=== PATIENT | female | born 1945 | race Caucasian/White ===

== ENCOUNTER 2022-11-24 16:08 | Outpatient (AMB) | payer BC, SELFPAY ==
--- NOTE | 2022-11-24 16:17 | MHC.OFFWIV ---
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 she states she gets winded when walking up stairs. she denies any chest pain, chest pressure. Pt states she has felt like this for some time now but her granddaughter has pushed her to be seen. 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 She does not have a primary care physician. Currently patient reports that she has no diagnosed medical condition and is on no medications. 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 In addition she is having a few stressors on going at home. Patient reports that in the last few weeks she has been tired and feels short of breath on exertion. Denies any chest pain, nausea or vomiting. Able to function and do activities of daily living. Physical Exam Vital Signs: Last Vital Signs Pulse 107 H 11/24/22 16:30 BP 120/80 11/24/22 16:30 Pulse Ox 98 11/24/22 16:30 Oxygen Delivery Method Room Air 11/24/22 16:30 Const General: cooperative and healthy appearing Nutritional Appearance: well nourished Orientation/consciousness: patient oriented x3 Limitations: no limitations HEENT Head: Yes normal to inspection Eyes General: appearance normal, both eyes and all related structures Neck Neck: Yes normal visual inspection Chest Chest palpation & inspection: normal palpation of entire chest wall Resp Effort & Inspection: normal respiratory effort Neuro General: patient oriented x3 Assessment & Plan Assessment & Plan (1) Fatigue: Code(s): R53.83 - Other fatigue Plan: Patient has never seen a primary care doc. I will start by ordering blood work. I have agreed to see her in my primary care practice in [place]. An appointment for the same will be given to her. Orders: Orders Basic Metabolic Panel Today R53.83 - Other fatigue Lipid Panel Today R53.83 - Other fatigue Liver Panel Today R53.83 - Other fatigue Thyroid Stimulating Hormone Today R53.83 - Other fatigue Complete Blood Count no Diff Today R53.83 - Other fatigue UA and rflx microscopic Today R53.83 - Other fatigue Coding Level of Care Code New Pt Level 3 (32142) Diagnoses Fatigue R53.83
[2022-11-24 16:30] VITALS: BP 120/80; PULSE 107; O2SAT 98
== END 2022-11-24 16:59 | disposition home or self-care (01) ==
PROVIDERS: Visit Provider Internal Medicine
DX: R53.83 Other fatigue (principal)
CPT/HCPCS: 99203

== ENCOUNTER 2022-11-25 14:21 | Outpatient (REF) | payer BC, SELFPAY ==
[2022-11-25 16:27] LABS: Appearance Urine Cloudy; Color Urine Yellow; Glucose Urine UA Negative (Negative); Leukocyte Esterase Urine Moderate (2+) (Negative); Nitrite Urine Positive (Negative); PH 5.5 (5.0-9.0); Specific Gravity - Urine 1.015 (1.005-1.025); UMIC TRIGGER UA YES; Urine Blood Negative (Negative); Urine Ketones Negative (Negative); Urine Protein Negative (Neg-Trace)
[2022-11-25 16:44] LABS: Bacteria Urine 4+ (None Seen); Calcium Oxalate Crystals Urine Present; RBC Urine 0-2 /HPF (0-2); WBC Urine >50 /HPF (0-5)
[2022-11-25 16:48] LABS: Alanine Aminotransferase 7 U/L (0-31); Albumin Level 3.8 g/dL (3.5-5.0); Alkaline Phosphatase 70 U/L (39-117); Anion Gap 13 (12-20); Aspartate Amino Transferase 12 U/L (5-31); Bilirubin Direct 0.1 mg/dL (0.0-0.5); Bilirubin Total 0.3 mg/dL (0.0-1.0); Blood Urea Nitrogen 12 mg/dL (9-16); Calcium 9.2 mg/dL (8.4-10.2); Carbon Dioxide 22 mmol/L (22-29); Chloride 108 mmol/L (96-108); Cholesterol 184 mg/dL (<200); Estimated Glomerular Filt Rate > 60; Glucose Random 143 mg/dL (60-115); HDL Cholesterol 44 mg/dL (>40); LDL Cholesterol Calculated 114 mg/dL (<100); Potassium 3.1 mmol/L (3.3-5.1); Sodium 140 mmol/L (135-145); Total Protein 6.2 g/dL (6.5-8.0); Triglycerides 130 mg/dL (<150)
[2022-11-25 16:55] LABS: Mean Corpuscular HGB Conc 26.2 g/dl (31.0-35.0); Mean Corpuscular Hemoglobin 16.7 pg (27.0-33.0); Mean Platelet Volume 9.3 fL (9.4-12.3); Platelet Count 532 X10*3/uL (160-400); Red Blood Count 3.17 X10*6/uL (4.20-5.50); Red Cell Distribution Width 19.5 % (11.0-16.0); White Blood Count 9.9 X10*3/uL (4.8-10.8)
[2022-11-25 17:43] LABS: Hematocrit 20.2 % (37.0-47.0); Hemoglobin 5.3 g/dl (12.0-16.0); Mean Corpuscular Volume 63.7 fL (80.0-98.0)
[2022-11-25 18:00] LABS: Thyroid Stimulating Hormone 1.57 uIU/mL (0.32-4.0)
== END 2022-11-25 14:22 | disposition home or self-care (01) ==
LOC: HO.HMGCLDS 14:21
PROVIDERS: PCP Internal Medicine; Visit Provider Internal Medicine
DX: R53.83 Other fatigue (principal)
CPT/HCPCS: 36415; 80048; 80061; 80076; 81001; 84443; 85027

== ENCOUNTER 2022-11-25 18:23 | Inpatient (IN) | payer MEDICARE, SELFPAY ==
--- NOTE | ~2022-11-25 | CT_ITS ---
EXAMINATION: CT ABDOMEN AND PELVIS WITH CONTRAST CLINICAL INFORMATION: Colonic mass COMPARISON: None available. TECHNIQUE: Multidetector volumetric images were obtained from the superior aspect of the liver through the pubic symphysis following administration 85 mL of Omnipaque 350 intravenous contrast. Sagittal and coronal reformatted images were obtained on the technologist's workstation. Oral contrast: No This CT examination was performed using dose optimization techniques as appropriate, variously including the following: *Automated exposure control *Adjustment of mA and/or kV according to patient size (this includes techniques or standardized protocols for targeted exams where dose is matched to indication/reason for exam; i.e. extremities or head) *Use of iterative reconstruction technique DLP: 566 mGy-cm FINDINGS: LUNG BASES: Small layering left-sided greater than right-sided pleural effusions. No pericardial fluid. LIVER, GALLBLADDER, AND BILIARY TREE: Area of decreased attenuation within segment 4A adjacent to the gallbladder fossa/lucinda hepatis. Although this could represent an area of focal fat infiltration, there appears to be possible subtle mass effect upon the adjacent hepatic vessels. Therefore mass lesion is not excluded. No other discrete lesion. No other foci of focal fatty infiltration is measurable. No biliary ductal dilatation. The gallbladder is unremarkable with no evidence of radiopaque gallstones, gallbladder wall thickening, or obvious pericholecystic inflammatory changes. PANCREAS: Unremarkable. SPLEEN: Unremarkable. ADRENAL GLANDS: No irregular adrenal lesion. Diffuse adenomatous changes left adrenal gland. KIDNEYS AND URETERS: The kidneys are normal in size, shape, and attenuation. No hydronephrosis, hydroureter, or calculi seen. No perinephric stranding. BLADDER: Unremarkable. GASTROINTESTINAL TRACT: Large circumferential infiltrating apple core type lesion without obstruction. Ascending colon. Ileocecal valve region cecal base grossly normal. Terminal ileum unremarkable. Appendix is not visualized. No small bowel serosal mesenteric lesion. Local regional pathologic lymphadenopathy within the right ileocolic mesentery measuring up to 7 mm short axis. Small axial type hiatus hernia. Small amount of nonspecific free fluid in the pelvis. ABDOMINAL WALL: No significant hernia is appreciated. LYMPH NODES: As above VASCULAR: Unremarkable. PELVIC VISCERA: Unremarkable. OSSEOUS STRUCTURES: Unremarkable. CT/CT abdomen pelvis w IV con IMPRESSION: 1. Large circumferential apple core type lesion within the ascending colon consistent with a primary colonic malignancy. Local regional lymphadenopathy. 2. Focal area of decreased attenuation within segment 4A of the liver as above. This could represent focal fatty infiltration but a mass lesion more likely based on the above features. Recommend MRI of the liver without and with contrast for further assessment. 3. Small layering pleural effusions. 4. Nonspecific free fluid in the pelvis. Fleischner guidelines were followed.
[2022-11-25 18:30] VITALS: BP 181/89; PULSE 103; RESP 20; TEMP 37.3; O2SAT 100; BMI 29.2
--- NOTE | 2022-11-25 18:30 | ED.GENADULT ---
HPI - General Adult General Chief complaint: Recheck/Abnormal Lab/Rx Stated complaint: sent by Dr / blood transfusion Time Seen by Provider: 11/25/22 21:02 Source: patient Mode of arrival: ambulatory Limitations: no limitations History of Present Illness HPI narrative: Patient comes to the emergency room accompanied by her granddaughter. Patient states that today she went to see her primary care physician because she has noticed that lately she feels short of breath when walking up the stairs. 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 Patient does not sleep well and is always tired. Patient states that she has not been seen by primary care physician in 50+ years, has no previous medical problems to her knowledge, never had colonoscopy. A primary care physician sent that work today, patient receive a phone call at home to let her know that her hemoglobin was very low and that she needed to come to the emergency room for further evaluation and treatment. Patient denies chest pain, no shortness of breath. Patient states that she has not noticed any black stool or blood. Patient has never had a colonoscopy Related Data Home Medications Medication Instructions Recorded Confirmed No Known Home Meds 11/24/22 Allergies Allergy/AdvReac Type Severity Reaction Status Date / Time No Known Allergies Allergy Verified 11/25/22 14:50 Review of Systems Review of Systems: Constitutional : No Weight loss, No Fever, No Chills, No Night Sweats, complaining of chronic Fatigue, No Malaise ENT/Mouth : No Hearing loss, No Ear Pain, No Nasal Congestion, No Sinus Pain, No Hoarseness, No sore throat, No Rhinorrhea, No Swallowing Difficulty Eyes: No Eye Pain, No Swelling, No Redness, No Foreign Body, No Discharge, No Vision Changes Cardiovascular : No Chest Pain, No SOB, complaining of Dyspnea on Exertion, No Orthopnea, No Edema, No Palpitations Respiratory : No Cough, No Sputum, No Wheezing, No Smoke Exposure, No Dyspnea Gastrointestinal : No Nausea, No Vomiting, No Diarrhea, No Constipation, No abdominal Pain, No Hematochezia, No Melena Genitourinary : no irregular bleeding, No Dysuria, No Urinary Frequency, No Hematuria, No Urinary Incontinence, No Urgency, No Flank Pain, No Urinary Flow Changes, No Hesitancy Musculoskeletal : No joint pain, No Myalgias, No Joint Swelling Skin : No Skin Lesions, No rash Neuro : No Weakness, No Numbness, No Paresthesias, No Loss of Consciousness, No Dizziness, No Headache Psych : No Anxiety/Panic, No Depression, No SI/HI/AH/VH, No Social Issues, Heme/Lymph: No Bruising, No Bleeding,No Lymphadenopathy Endocrine : No Polyuria, No Polydipsia, No Temperature Intolerance COUNTS INCLUDE 234 BEDS AT THE [facility] Social History Social History Advance Directives: No Advance Directives Information Provided: Yes Physical Exam ED Vital Signs: Vital Signs - 24 hr 11/25/22 18:30 11/25/22 21:00 Temperature 99.2 F 98.3 F Pulse Rate 103 H 93 Respiratory Rate 20 18 Blood Pressure 181/89 H 174/55 H Pulse Oximetry 100 100 Oxygen Delivery Method Room Air Room Air BMI result Body Mass Index 29.2 Const Other: Appearance: Alert. Oriented X3. No acute distress. Eyes: Pupils equal, round and reactive to light. ENT: Pharynx normal. Neck: Normal inspection. Neck supple. No lymph nodes noted. No crepitus CVS: Normal heart rate and rhythm. Pulses normal. Normal S1 and S2 Respiratory: No respiratory distress. Breath sounds normal. No Wheezing. No rales Abdomen: Soft and nontender. No rigidity. No distention. Skin: Skin warm and dry. pale skin color. Normal skin turgor. Extremities: No lower extremity edema. No Lacerations. No Rash Neuro: Oriented X 3. No motor deficit. No sensory deficit. Moving all extremities. No slurred speech. CN 2 through 12 grossly intact Psych: calm, cooperative, normal affect Course Course Course Narrative: This is a rapid medical exam: Additional HPI, ROS, PE not included below will be deferred to primary provider. Patient is a 77-year-old female presenting to the emergency department stating that she had labs drawn this afternoon and was called tonight, told to come to the ED for a transfusion. She reports being more easily fatigued than normal with everyday activities. Reports increased stress recently and had been attributing her symptoms to that. H&H 5.3/20.2 from today's labs. She denies any blood in stool or dark, tarry stools. UA positive for 2+ leukocytes, + nitrites. Plan: labs Medical Decision Making Medical Decision Making MDM Narrative: - I discussed the risks versus benefits of blood transfusion with the patient. Patient is agreeable to go ahead and get transfused. Patient signed the consent, which is in the paper chart - patient will be getting at least 3 units of blood, planning to admit the patient. - Stool occult blood test positive - talking further with the patient, since the patient takes a lot of Tums, seems that the patient has GERD, patient self medicates with Tums. It may be possible that patient may have an upper GI ulcer/bleed - discussed with the patient that she will likely need a colonoscopy and an endoscopy. 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 Differential Diagnosis Differential Diagnoses: The differential diagnosis associated with the presentation includes ( iron deficiency anemia, GI bleed, chronic anemia) Admission/Observation Consideration of admission/observation: Escalation of care including admission/observation considered Consult Healthcare Provider Management of the patient was discussed with: Hospitalist Lab Data MDM Lab Attestation statement: I reviewed the patient's lab results. 11/25/22 18:54 11/25/22 18:54 Labs: Lab Results 11/25/22 11/25/22 11/25/22 Range/Units 18:54 18:54 18:54 WBC 9.2 (4.8-10.8) X10*3/uL RBC 3.10 L (4.20-5.50) X10*6/uL Hgb 5.2 L* (12.0-16.0) g/dl Hct 19.4 L* (37.0-47.0) % MCV 62.6 L (80.0-98.0) fL MCH 16.8 L (27.0-33.0) pg MCHC 26.8 L (31.0-35.0) g/dl RDW 19.5 H (11.0-16.0) % Plt Count 468 H (160-400) X10*3/uL MPV 8.7 L (9.4-12.3) fL Immature Gran % (Auto) 0.9 H (0.0-0.4) % Neut % (Auto) 71.1 (45-73) % Lymph % (Auto) 18.2 L (20-40) % Taylor % (Auto) 7.4 (2-11) % Eos % (Auto) 1.6 (0-4) % Baso % (Auto) 0.8 (0-2) % Lymph # (Auto) 1.7 (1.2-4.9) X10*3/uL Taylor # (Auto) 0.7 (0.1-1.2) X10*3/uL Eos # (Auto) 0.2 (0.0-0.4) X10*3/uL Baso # (Auto) 0.1 (0.0-0.2) X10*3/uL Abs Immat Gran (auto) 0.08 H (0.00-0.03) X10*3/uL Absolute Neuts (auto) 6.5 (2.0-8.3) x10*3/uL Absolute Nucleated RBC 0.000 (0.0-0.012) X10*3/uL Nucleated RBC % (auto) 0.0 (0.0-0.2) /100WBC PT 12.1 (11.1-13.3) SEC INR 1.0 (0.9-1.1) APTT 27.7 (26.0-36.4) SEC Sodium 141 (135-145) mmol/L Potassium 3.4 (3.3-5.1) mmol/L Chloride 109 H (96-108) mmol/L Carbon Dioxide 24 (22-29) mmol/L Anion Gap 11 L (12-20) BUN 12 (9-16) mg/dL Creatinine 0.82 (0.5-1.4) mg/dL Estim Creat Clear Calc 56.8 Estimated GFR > 60 Random Glucose 119 H (60-115) mg/dL Calcium 9.8 D (8.4-10.2) mg/dL Total Bilirubin 0.3 (0.0-1.0) mg/dL AST 13 (5-31) U/L ALT 8 (0-31) U/L Alkaline Phosphatase 69 (39-117) U/L Total Protein 6.4 L (6.5-8.0) g/dL Albumin 3.9 (3.5-5.0) g/dL Blood Type Antibody Screen 11/25/22 Range/Units 20:10 WBC (4.8-10.8) X10*3/uL RBC (4.20-5.50) X10*6/uL Hgb (12.0-16.0) g/dl Hct (37.0-47.0) % MCV (80.0-98.0) fL MCH (27.0-33.0) pg MCHC (31.0-35.0) g/dl RDW (11.0-16.0) % Plt Count (160-400) X10*3/uL MPV (9.4-12.3) fL Immature Gran % (Auto) (0.0-0.4) % Neut % (Auto) (45-73) % Lymph % (Auto) (20-40) % Taylor % (Auto) (2-11) % Eos % (Auto) (0-4) % Baso % (Auto) (0-2) % Lymph # (Auto) (1.2-4.9) X10*3/uL Taylor # (Auto) (0.1-1.2) X10*3/uL Eos # (Auto) (0.0-0.4) X10*3/uL Baso # (Auto) (0.0-0.2) X10*3/uL Abs Immat Gran (auto) (0.00-0.03) X10*3/uL Absolute Neuts (auto) (2.0-8.3) x10*3/uL Absolute Nucleated RBC (0.0-0.012) X10*3/uL Nucleated RBC % (auto) (0.0-0.2) /100WBC PT (11.1-13.3) SEC INR (0.9-1.1) APTT (26.0-36.4) SEC Sodium (135-145) mmol/L Potassium (3.3-5.1) mmol/L Chloride (96-108) mmol/L Carbon Dioxide (22-29) mmol/L Anion Gap (12-20) BUN (9-16) mg/dL Creatinine (0.5-1.4) mg/dL Estim Creat Clear Calc Estimated GFR Random Glucose (60-115) mg/dL Calcium (8.4-10.2) mg/dL Total Bilirubin (0.0-1.0) mg/dL AST (5-31) U/L ALT (0-31) U/L Alkaline Phosphatase (39-117) U/L Total Protein (6.5-8.0) g/dL Albumin (3.5-5.0) g/dL Blood Type B Negative Antibody Screen NEGATIVE Independent Interpretation I performed an independent interpretation of an: EKG Independent Historian Clinical information obtained from an independent historian. History obtained from or confirmed by: Friend External Record Review External record reviewed: Office record ( First visit with PCP in 50+ years, hemoglobin is low, 5.4) Critical Care Time Critical Care Time Critical Care Time: Yes Total Critical Care Time: 60 Attestation: I have personally provided critical care time. Time includes review of lab data, radiology results, discussion with consultants, and monitoring for potential decompensation. Intervention performed as documented. Discharge Plan Discharge Clinical Impression: Anemia, Chronic fatigue Patient Disposition: Admitted As Inpatient Prescriptions: No Action No Known Home Meds
--- NOTE | 2022-11-25 18:33 | ECG_ITS ---
Test Reason : weakness Blood Pressure : / mmHG Vent. Rate : 093 BPM Atrial Rate : 093 BPM P-R Int : 148 ms QRS Dur : 072 ms QT Int : 358 ms P-R-T Axes : 039 -05 042 degrees QTc Int : 445 ms Normal sinus rhythm Nonspecific ST abnormality Abnormal ECG No previous ECGs available Referred By: Sammie Leavitt Electronically Signed By:DEIDRA BARTON
[2022-11-25 18:59] LABS: MANUAL DIFF FLAG NO
[2022-11-25 19:03] LABS: Basophils Absolute Auto 0.1 X10*3/uL (0.0-0.2); Basophils Percent Auto 0.8 % (0-2); Eosinophils Absolute Auto 0.2 X10*3/uL (0.0-0.4); Eosinophils Percent Auto 1.6 % (0-4); Imm Gran Abs Auto 0.08 X10*3/uL (0.00-0.03); Imm Gran Pct Auto 0.9 % (0.0-0.4); Lymphocytes Absolute Auto 1.7 X10*3/uL (1.2-4.9); Lymphocytes Percent Auto 18.2 % (20-40); Mean Corpuscular HGB Conc 26.8 g/dl (31.0-35.0); Mean Corpuscular Hemoglobin 16.8 pg (27.0-33.0); Mean Platelet Volume 8.7 fL (9.4-12.3); Monocytes Absolute Auto 0.7 X10*3/uL (0.1-1.2); Monocytes Percent Auto 7.4 % (2-11); Neutrophils Absolute Auto 6.5 x10*3/uL (2.0-8.3); Neutrophils Percent Auto 71.1 % (45-73); Platelet Count 468 X10*3/uL (160-400); Red Cell Distribution Width 19.5 % (11.0-16.0); White Blood Count 9.2 X10*3/uL (4.8-10.8)
[2022-11-25 19:06] LABS: Prothrombin Time 12.1 SEC (11.1-13.3)
[2022-11-25 19:08] LABS: Partial Thromboplastin Time 27.7 SEC (26.0-36.4)
[2022-11-25 19:14] LABS: Alanine Aminotransferase 8 U/L (0-31); Albumin Level 3.9 g/dL (3.5-5.0); Alkaline Phosphatase 69 U/L (39-117); Anion Gap 11 (12-20); Aspartate Amino Transferase 13 U/L (5-31); Bilirubin Total 0.3 mg/dL (0.0-1.0); Blood Urea Nitrogen 12 mg/dL (9-16); Calcium 9.8 mg/dL (8.4-10.2); Carbon Dioxide 24 mmol/L (22-29); Chloride 109 mmol/L (96-108); Creatinine Clr Calc Pharmacy 56.8; Estimated Glomerular Filt Rate > 60; Glucose Random 119 mg/dL (60-115); Potassium 3.4 mmol/L (3.3-5.1); Sodium 141 mmol/L (135-145); Total Protein 6.4 g/dL (6.5-8.0)
[2022-11-25 19:18] LABS: Mean Corpuscular Volume 62.6 fL (80.0-98.0)
[2022-11-25 19:23] LABS: Hematocrit 19.4 % (37.0-47.0); Hemoglobin 5.2 g/dl (12.0-16.0)
[2022-11-25 21:00] VITALS: BP 174/55; PULSE 93; RESP 18; TEMP 36.8; O2SAT 100
--- NOTE | 2022-11-25 21:10 | PC.NURSE ---
Pt ambulated independently from W/R to room. Pt A&Ox4, denies any pain, reports SOB with exertion and weakness.Pt reports diarrhea on and off x years. Denies CP/palpitations or dizziness, N/V. Pt placed on bedside monitor, IV line placed, provider at bedside.
[2022-11-25 21:20] LABS: OBS Int Ctl Valid YES; OBS1 POSITIVE (NEGATIVE)
[2022-11-25 21:40] LABS: Iron < 6 mcg/dL (30-160); Total Iron Binding Capacity < 338 mcg/dL (228-428); Unsaturated Iron Binding 332 ug/dL
--- NOTE | 2022-11-25 21:46 | P.HPHOSP_ITS ---
History of Present Illness Date of Service: 11/25/22 Chief Complaint: Dyspnea This is a 77-year-old female with no pertinent past medical history and not on prescription medications who has not seen a primary care physician in over 50 years presents to the emergency department for evaluation of abnormal labs and d yspnea. Patient states she has been having dyspnea with exertion that has been ongoing for the last 6 months. It has been progressive over the last 1 month and is worse with ambulation. Patient established care with a primary care physician on the day of presentation and got blood work done. Her hemoglobin was found to be low and she was sent to the ER. Patient does endorse intermittent black stools and loose stools over the last 6 months. No belly pain. Patient has never had a colonoscopy in the past. Denies chewing/smoking tobacco or excessive alcohol use. She denies fever, chills, chest discomfort, palpitations, abdominal pain, changes in urinary or bowel habits. In the emergency department, stool occult test was positive and patient's hemoglobin was found to be 5.2 Review of Systems Constitutional: Constitutional: Reports fatigue Cardiovascular: Cardiovascular: Reports dyspnea on exertion Respiratory: Respiratory: Reports dyspnea on exertion Gastrointestinal: Gastrointestinal: Reports melena and Reports diarrhea Genitourinary: Genitourinary: Reports no additional female genitourinary complaints Musculoskeletal: Musculoskeletal: Reports no additional musculoskeletal complaints Endocrine: Endocrine: Reports fatigue PMFSH Pertinent family history: No family history of early CAD Social History Advance Directives: No Advance Directives Information Provided: Yes Meds Allergies Allergy/AdvReac Type Severity Reaction Status Date / Time No Known Allergies Allergy Verified 11/25/22 14:50 Active Medications: Current Medications Sodium Chloride (Ns) 100 mls @ 100 mls/hr IV ONCE ONE Stop: 11/25/22 22:31 Sodium Chloride (Ns) 100 mls @ 100 mls/hr IV ONCE ONE Stop: 11/25/22 22:31 Sodium Chloride (Ns) 100 mls @ 100 mls/hr IV ONCE ONE Stop: 11/25/22 22:31 Home Medications Medication Instructions Recorded Confirmed Last Taken Type omeprazole 20 mg capsule,delayed 20 mg PO DAILY 11/25/22 11/25/22 Unknown History release Physical Exam Vital Signs and Narrative: Vital Signs: Last Vital Signs Temp 98.3 F 11/25/22 21:00 Pulse 93 11/25/22 21:00 Resp 18 11/25/22 21:00 BP 174/55 H 11/25/22 21:00 Pulse Ox 100 11/25/22 21:00 O2 Del Method Room Air 11/25/22 21:00 BMI result Body Mass Index 29.2 Elderly female lying in bed in no distress Neck supple, no JVD Regular rate and rhythm, S1-S2 heard Regular breath sounds bilaterally, no wheezing or crackles appreciated Abdomen soft nontender, no guarding, no rigidity Patient is awake, alert and oriented to self, place, time and person ; no focal motor deficit Psych: Normal mood No pedal edema Results Labs 11/25/22 18:54 11/25/22 18:54 Labs: Laboratory Results - last 24 hr 11/25/22 11/25/22 11/25/22 18:54 18:54 18:54 MCV 62.6 L MCH 16.8 L MCHC 26.8 L RDW 19.5 H Plt Count 468 H MPV 8.7 L Immature Gran % (Auto) 0.9 H Neut % (Auto) 71.1 Lymph % (Auto) 18.2 L [place] % (Auto) 7.4 Eos % (Auto) 1.6 Baso % (Auto) 0.8 Lymph # (Auto) 1.7 [place] # (Auto) 0.7 Eos # (Auto) 0.2 Baso # (Auto) 0.1 Abs Immat Gran (auto) 0.08 H Absolute Neuts (auto) 6.5 Absolute Nucleated RBC 0.000 Nucleated RBC % (auto) 0.0 PT 12.1 INR 1.0 APTT 27.7 Anion Gap 11 L Estim Creat Clear Calc 56.8 Estimated GFR > 60 Random Glucose 119 H Calcium 9.8 D Iron TIBC % Saturation Unsat Iron Binding Total Bilirubin 0.3 AST 13 ALT 8 Alkaline Phosphatase 69 Total Protein 6.4 L Albumin 3.9 Stool Occult Blood Blood Type Antibody Screen Crossmatch 11/25/22 11/25/22 11/25/22 20:10 21:14 21:19 MCV MCH MCHC RDW Plt Count MPV Immature Gran % (Auto) Neut % (Auto) Lymph % (Auto) [place] % (Auto) Eos % (Auto) Baso % (Auto) Lymph # (Auto) [place] # (Auto) Eos # (Auto) Baso # (Auto) Abs Immat Gran (auto) Absolute Neuts (auto) Absolute Nucleated RBC Nucleated RBC % (auto) PT INR APTT Anion Gap Estim Creat Clear Calc Estimated GFR Random Glucose Calcium Iron < 6 L TIBC < 338 % Saturation TNP Unsat Iron Binding 332 Total Bilirubin AST ALT Alkaline Phosphatase Total Protein Albumin Stool Occult Blood POSITIVE Blood Type B Negative Antibody Screen NEGATIVE Crossmatch See Detail Assessment and Plan (1) Anemia: Status: Acute Plan This is a 77-year-old female with no pertinent past medical history and not on prescription medications who has not seen a primary care physician in over 50 years presents to the emergency department for evaluation of abnormal labs and dyspnea. #. Symptomatic anemia, concern for GI bleed. Will admit patient with cardiac monitoring. Resuscitating with IV crystalloids. 3 unit PRBC ordered in the ER. Close monitor H&H. Consulted Gastroenterology, appreciate assistance. Stool occult positive in the ER. Administering IV Protonix and will keep patient NPO #. Iron deficiency in the setting of above #. Reactive thrombocytosis due to iron deficiency anemia DVT prophylaxis: Mechanical Full code Admit as inpatient and will require two night minimum hospital stay for close monitoring of hemodynamics. Specialist consult pending Time Spent With Patient Time: Total time managing care of this patient today ____ minutes. Quality Stroke Does the patient have a stroke diagnosis?: No VTE Prior VTE?: No VTE Risk Level:: Medical - moderate - high VTE Device Contraindication: N/A - Device Ordered VTE Drug Contraindication: Treatment Not Indicated
--- NOTE | 2022-11-25 21:51 | PHA.MEDREC ---
Pharmacy Consult ? Medication Reconciliation Pharmacy has completed the medication reconciliation. Patient reports no prescription. Patient reports mainly take omeprazole OTC. Kacey Wilson, JasonD
[2022-11-25 22:10] VITALS: BP 169/56; PULSE 102; RESP 20; TEMP 36.7
[2022-11-25 22:28] VITALS: BP 157/46; PULSE 87; RESP 18; TEMP 36.8
--- NOTE | 2022-11-25 22:31 | PC.NURSE ---
First unit of blood started per MAY/. Pt afebrile, denies any SOB, CP, palpitations, or itchiness. WCTM.
[2022-11-25] MEDS: Pantoprazole Sodium 40 MG/10 ML VIAL 80 MG IVPUSH (22:42)
[2022-11-26] VITALS (19 sets, daily range): BP systolic 111–174; BP diastolic 37–77; PULSE 69–98; RESP 16–22; TEMP 36.2–37.1; O2SAT 93–99; BMI 29.5
--- NOTE | 2022-11-26 01:22 | PC.NURSE ---
Pt ambulated to the bathroom with steady gait, denies pain, blood running per TAR. No adverse reactions reported, VSS. Pt has been reminded of the plan of care. Pt remains NPO.
--- NOTE | 2022-11-26 02:26 | PC.NURSE ---
Second unit of blood running, pt tolerating well. Pt denies any adverse reactions. wctm.
[2022-11-26 04:59] LABS: MANUAL DIFF FLAG NO
[2022-11-26 05:03] LABS: Basophils Absolute Auto 0.1 X10*3/uL (0.0-0.2); Eosinophils Absolute Auto 0.2 X10*3/uL (0.0-0.4); Eosinophils Percent Auto 1.7 % (0-4); Hematocrit 26.9 % (37.0-47.0); Hemoglobin 8.3 g/dl (12.0-16.0); Imm Gran Abs Auto 0.04 X10*3/uL (0.00-0.03); Imm Gran Pct Auto 0.4 % (0.0-0.4); Lymphocytes Absolute Auto 1.5 X10*3/uL (1.2-4.9); Lymphocytes Percent Auto 15.1 % (20-40); Mean Corpuscular HGB Conc 30.9 g/dl (31.0-35.0); Mean Corpuscular Hemoglobin 21.7 pg (27.0-33.0); Mean Corpuscular Volume 70.2 fL (80.0-98.0); Monocytes Absolute Auto 0.7 X10*3/uL (0.1-1.2); Monocytes Percent Auto 7.2 % (2-11); Neutrophils Absolute Auto 7.4 x10*3/uL (2.0-8.3); Neutrophils Percent Auto 74.6 % (45-73); Platelet Count 407 X10*3/uL (160-400); Red Blood Count 3.83 X10*6/uL (4.20-5.50); Red Cell Distribution Width 27.6 % (11.0-16.0)
[2022-11-26 05:23] LABS: Anion Gap 12 (12-20); Blood Urea Nitrogen 10 mg/dL (9-16); Calcium 9.4 mg/dL (8.4-10.2); Carbon Dioxide 23 mmol/L (22-29); Chloride 111 mmol/L (96-108); Creatinine Clr Calc Pharmacy 62.1; Estimated Glomerular Filt Rate > 60; Glucose Random 117 mg/dL (60-115); Potassium 3.3 mmol/L (3.3-5.1); Sodium 143 mmol/L (135-145)
--- NOTE | 2022-11-26 06:11 | PC.NURSE ---
Addendum entered by Heidi Marte 11/26/22 07:03: Pt denies any adverse reaction hesham. Original Note: Third unit of blood running per TAR
--- NOTE | 2022-11-26 06:32 | P.CNGI_ITS ---
History of Present Illness Data of Consult Service Date: 11/26/22 Requesting physician: Kobi Ramirez Primary Care Provider: Everardo Blair MD HPI Reason for consult: anemia 77-year-old female with no pertinent past medical history who I am seeing for anemia assessment She had labs checked by PCP due to exertional dyspnea and was foun dto have HGB 5.2 g/dl. She denies fever, chills, chest discomfort, palpitations, abdominal pain, changes in urinary or bowel habits. Seh has noted any rectal bleeding, melena, nose bleeds, hematuria. she has never had colonoscopy. Not taking nsaids or aspirin. She has had chronic diarrhea over the years, intermittent, no obvious triggers. she does have reflux symptoms at times and takes tums on a regular basis. Patient has received 3 units PRBC with appropriate increase in HGB. Not taking aspirin or blood thinners Review of Systems Review of Systems: Constitutional : No Weight loss, No Fever, No Chills ENT/Mouth : No sore throat, No Rhinorrhea Eyes: No Swelling, No Redness Cardiovascular : No Chest Pain, + SOB on exertion, No Edema Respiratory : No Cough, No Sputum, No Wheezing Gastrointestinal : see HPI Genitourinary : NO Dysuria, No Urinary Frequency, No Hematuria, No Urgency Musculoskeletal : No joint pain, No Myalgias, No Joint Swelling Skin : No Skin Lesions, No rash Neuro : No Weakness, No Numbness, No Dizziness, No Headache Psych : No Anxiety/Panic, No Depression Heme/Lymph: No Bruising, No Lymphadenopathy Endocrine : No Polyuria, No Polydipsia All other systems reviewed and are negative. [facility] Family History Pertinent family history: does not know her family history Social History Social History Household Members: Spouse Housing: House Do you presently have visiting nurse or other home services: Yes Alcohol intake: former Patient Tobacco Use Status: Never used Tobacco service: No Meds Allergies Allergy/AdvReac Type Severity Reaction Status Date / Time No Known Allergies Allergy Verified 11/25/22 14:50 Active Medications: Current Medications Acetaminophen (Acetaminophen 325 Mg Tablet) 650 mg PO Q6H PRN PRN Reason: Pain, Mild (Pain Scale 1-3) Acetaminophen (Acetaminophen Supp 650 Mg Supp.Rect) 650 mg [place] Q6H PRN PRN Reason: Pain, Mild (Pain Scale 1-3) Melatonin (Melatonin 3 Mg Tablet) 6 mg PO BEDTIME PRN PRN Reason: Insomnia Ondansetron HCl (Ondansetron Hcl 4 Mg/2 Ml Vial) 4 mg IVPUSH Q8H PRN PRN Reason: Nausea and Vomiting Sodium Chloride (0.9 % Sodium Chloride Flush 3 Ml Syringe) 3 ml IVFLUSH QSHIFT [facility] Last Admin: 11/26/22 00:47 Dose: Not Given Home Medications Medication Instructions Recorded Confirmed Last Taken Type omeprazole 20 mg capsule,delayed 20 mg PO DAILY 11/25/22 11/25/22 Unknown History release Physical Exam Vital Signs: Vital Signs: Last Vital Signs Temp 98.4 F 11/26/22 06:11 Pulse 82 11/26/22 06:11 Resp 20 11/26/22 06:11 BP 152/49 H 11/26/22 06:11 Pulse Ox 100 11/25/22 21:00 O2 Del Method Room Air 11/25/22 21:00 BMI result Body Mass Index 29.2 EXAM: GENERAL: The patient is well developed and nontoxic. VITAL SIGNS:see workflow HEENT: Nonicteric sclerae, PERRLA, EOMI. Oropharynx clear. Moist mucous membranes. Conjunctivae appear well perfused. No thyroid mass. CHEST: Chest wall is nontender. HEART: Regular rate and rhythm without murmurs. LUNGS: Clear to auscultation bilaterally. ABDOMEN: Soft, positive bowel sounds, nontender, no organomegaly.no flank tenderness SKIN: No rash, no excessive bruising, petechiae, or purpura. NEUROLOGIC: Cranial nerves II-XII intact without motor/sensory deficit. Psych: Appearance: grossly normal Results Labs 11/26/22 04:30 11/26/22 04:30 Labs: Short CBC 11/25/22 11/26/22 Range/Units 18:54 04:30 WBC 9.2 10.0 (4.8-10.8) X10*3/uL Hgb 5.2 L* 8.3 L D (12.0-16.0) g/dl Hct 19.4 L* 26.9 L D (37.0-47.0) % Plt Count 468 H 407 H (160-400) X10*3/uL BMP 11/25/22 11/26/22 18:54 04:30 Sodium 141 143 Potassium 3.4 3.3 Chloride 109 H 111 H Carbon Dioxide 24 23 BUN 12 10 Creatinine 0.82 0.75 Calcium 9.8 D 9.4 Liver Function 11/25/22 Range/Units 18:54 Total Bilirubin 0.3 (0.0-1.0) mg/dL AST 13 (5-31) U/L ALT 8 (0-31) U/L Alkaline Phosphatase 69 (39-117) U/L Albumin 3.9 (3.5-5.0) g/dL Assessment and Plan (1) Anemia: Status: Acute Plan 1/ Anemia seems chronic based on iron parameter,s no overt GIB but has long standing diarrhea ddx: PUD, celiac, neoplasia PLAN: 1/ EGD today if neg then colonoscopy tomorrow 2/ can keep on PPI for the moment 3/ iron replacement on d/c Time Spent With Patient Time: Total time managing care of this patient today ____ minutes. Procedures Date of Service Date of Service: 11/26/22
[2022-11-26] MEDS: cefTRIAXone sodium 1 GM in 0.9 % Sodium Chloride 50 ML IV (07:52)
--- NOTE | 2022-11-26 07:58 | PC.NURSE ---
pt a&ox3. respirations even and unlabored. lung sounds clear bilaterally. pt denies pain at this time. pt currently has blood products running per TAR, pt tolerating well. pt normal sinus on tele.
--- NOTE | 2022-11-26 09:03 | PC.NURSE ---
report given to Krissy in [facility]
--- NOTE | 2022-11-26 10:40 | HO.PM.IMPN ---
Subjective Subjective Date of Service: 11/26/22 Review of Systems follow-up anemia denies any shortness breath, chest pain, weakness Physical Exam Vital Signs: Vital Signs: Last Vital Signs Temp 98.0 F 11/26/22 10:09 Pulse 77 11/26/22 10:09 Resp 20 11/26/22 10:09 BP 171/74 H 11/26/22 10:09 Pulse Ox 94 11/26/22 10:00 O2 Del Method Room Air 11/26/22 10:00 BMI result Body Mass Index 29.2 Appearing in no acute distress lung sounds are clear to auscultation heart regular rate rhythm, clear S1, S2 positive bowel sounds, abdomen is soft, nontender neuro patient is alert x3, no focal deficits Objective Data Active Medications Acetaminophen (Acetaminophen 325 Mg Tablet) 650 mg PO Q6H PRN PRN Reason: Pain, Mild (Pain Scale 1-3) Acetaminophen (Acetaminophen Supp 650 Mg Supp.Rect) 650 mg [place] Q6H PRN PRN Reason: Pain, Mild (Pain Scale 1-3) Ceftriaxone Sodium 1 gm/ (Sodium Chloride) 50 mls @ 100 mls/hr IV Q24H [facility] Last Infusion: 11/26/22 09:26 Dose: 100 mls/hr Documented By: GARRICK Melatonin (Melatonin 3 Mg Tablet) 6 mg PO BEDTIME PRN PRN Reason: Insomnia Ondansetron HCl (Ondansetron Hcl 4 Mg/2 Ml Vial) 4 mg IVPUSH Q8H PRN PRN Reason: Nausea and Vomiting Sodium Chloride (0.9 % Sodium Chloride Flush 3 Ml Syringe) 3 ml IVFLUSH QSHIFT [facility] Last Admin: 11/26/22 07:42 Dose: Not Given Documented By: GRACE Non-Admin Reason: IV Running Labs 11/26/22 04:30 11/26/22 04:30 Labs: Laboratory Results - last 24 hr 11/25/22 11/25/22 11/25/22 18:54 18:54 18:54 MCV 62.6 L MCH 16.8 L MCHC 26.8 L RDW 19.5 H Plt Count 468 H MPV 8.7 L Immature Gran % (Auto) 0.9 H Neut % (Auto) 71.1 Lymph % (Auto) 18.2 L [place] % (Auto) 7.4 Eos % (Auto) 1.6 Baso % (Auto) 0.8 Lymph # (Auto) 1.7 [place] # (Auto) 0.7 Eos # (Auto) 0.2 Baso # (Auto) 0.1 Abs Immat Gran (auto) 0.08 H Absolute Neuts (auto) 6.5 Absolute Nucleated RBC 0.000 Nucleated RBC % (auto) 0.0 PT 12.1 INR 1.0 APTT 27.7 Anion Gap 11 L Estim Creat Clear Calc 56.8 Estimated GFR > 60 Random Glucose 119 H Calcium 9.8 D Iron TIBC % Saturation Unsat Iron Binding Total Bilirubin 0.3 AST 13 ALT 8 Alkaline Phosphatase 69 Total Protein 6.4 L Albumin 3.9 Stool Occult Blood Blood Type Antibody Screen Crossmatch 11/25/22 11/25/22 11/25/22 20:10 21:14 21:19 MCV MCH MCHC RDW Plt Count MPV Immature Gran % (Auto) Neut % (Auto) Lymph % (Auto) [place] % (Auto) Eos % (Auto) Baso % (Auto) Lymph # (Auto) [place] # (Auto) Eos # (Auto) Baso # (Auto) Abs Immat Gran (auto) Absolute Neuts (auto) Absolute Nucleated RBC Nucleated RBC % (auto) PT INR APTT Anion Gap Estim Creat Clear Calc Estimated GFR Random Glucose Calcium Iron < 6 L TIBC < 338 % Saturation TNP Unsat Iron Binding 332 Total Bilirubin AST ALT Alkaline Phosphatase Total Protein Albumin Stool Occult Blood POSITIVE Blood Type B Negative Antibody Screen NEGATIVE Crossmatch See Detail 11/26/22 11/26/22 04:30 04:30 MCV 70.2 L D MCH 21.7 L MCHC 30.9 L RDW 27.6 H Plt Count 407 H MPV 9.0 L Immature Gran % (Auto) 0.4 Neut % (Auto) 74.6 H Lymph % (Auto) 15.1 L [place] % (Auto) 7.2 Eos % (Auto) 1.7 Baso % (Auto) 1.0 Lymph # (Auto) 1.5 [place] # (Auto) 0.7 Eos # (Auto) 0.2 Baso # (Auto) 0.1 Abs Immat Gran (auto) 0.04 H Absolute Neuts (auto) 7.4 Absolute Nucleated RBC 0.000 Nucleated RBC % (auto) 0.0 PT INR APTT Anion Gap 12 Estim Creat Clear Calc 62.1 Estimated GFR > 60 Random Glucose 117 H Calcium 9.4 Iron TIBC % Saturation Unsat Iron Binding Total Bilirubin AST ALT Alkaline Phosphatase Total Protein Albumin Stool Occult Blood Blood Type Antibody Screen Crossmatch Assessment and Plan (1) Anemia: Status: Acute Plan This is a 77-year-old female with no pertinent past medical history and not on prescription medications who has not seen a primary care physician in over 50 years presents to the emergency department for evaluation of abnormal labs and dyspnea. Iron deficiency symptomatic anemia. Unspecified Also concern for acute blood loss anemia with occult positive stool Status post 3 units packed red blood cells with elevation and H&H Plan for EGD today Continue IV PPI for now Iron <6/TIBC <338, iron infusion UTI Continue Rocephin Follow final culture Reactive thrombocytosis due to iron deficiency anemia Follow CBC Elevated blood pressure readings No history of hypertension Monitor blood pressure closely and consider adding low-dose antihypertensive agent DVT prophylaxis:? Mechanical Attending Dr. Oates Full code continue hospitalization for treatment of acute iron deficiency anemia requiring IV iron, blood transfusion and diagnostic imaging studies Time Spent With Patient Time: Total time managing care of this patient today ____ minutes. Quality Stroke Does the patient have a stroke diagnosis?: No VTE Prior VTE?: No VTE Risk Level:: Medical - moderate - high VTE Device Contraindication: N/A - Device Ordered VTE Drug Contraindication: Treatment Not Indicated
--- NOTE | 2022-11-26 11:02 | MHC.CM.PN ---
Pt admitted with dyspnea. Pt lives at home with her , is independent/self-care. D/C plan is to return home self-care. Pts to transport. Declines to make a HCP at this time. PCP: Everardo Blair
[2022-11-26 11:08] LABS: Estimated Average Glucose 100 mg/dL; Hemoglobin A1c % 5.1 % (<6.0)
[2022-11-26] MEDS: Iron Sucrose Complex 200 MG in 0.9 % Sodium Chloride 100 ML 440 MG IV (11:13)
--- NOTE | 2022-11-26 12:36 | HO.ANESPROP2 ---
[facility] Active Problems Active Problems: All Active Problems (Updated 11/25/22 @ 21:47 by Rossana Medellin MD) Anemia (Acute) Chronic fatigue (Acute) Fatigue (Acute) Family History Family history of problems with anesthesia: No Surgical History History of Problems with Anesthesia: No Social History Social History Household Members: Spouse Housing: House Do you presently have visiting nurse or other home services: Yes Alcohol intake: former Patient Tobacco Use Status: Never used Tobacco Smoked in Last 30 Days: No Use of substances other than those prescribed or required for medical reasons: No Have you been hit, kicked, punched, or otherwise hurt by someone within the past year? If so, by whom?: No Do you feel safe in your current relationship?: Yes Is there a partner from a previous relationship who is making you feel unsafe now?: No Are you made to feel afraid or neglected: No R[employer] Healthcare Practices: confucianist Advance Directives: No Advance Directives Information Provided: Yes Do you have thoughts of harming others: None Do you have a plan to hurt others: No Plan Recently lost weight without trying: No Eating poorly because of decreased appetite: No Nutrition Risks: No Nutritional Risk Patient : No : No Poor oral hygiene: No service: No Meds Allergies Allergy/AdvReac Type Severity Reaction Status Date / Time No Known Allergies Allergy Verified 11/25/22 14:50 Active Medications: Current Medications Acetaminophen (Acetaminophen 325 Mg Tablet) 650 mg PO Q6H PRN PRN Reason: Pain, Mild (Pain Scale 1-3) Acetaminophen (Acetaminophen Supp 650 Mg Supp.Rect) 650 mg [place] Q6H PRN PRN Reason: Pain, Mild (Pain Scale 1-3) Ceftriaxone Sodium 1 gm/ (Sodium Chloride) 50 mls @ 100 mls/hr IV Q24H [facility] Last Infusion: 11/26/22 09:26 Dose: Infused Melatonin (Melatonin 3 Mg Tablet) 6 mg PO BEDTIME PRN PRN Reason: Insomnia Ondansetron HCl (Ondansetron Hcl 4 Mg/2 Ml Vial) 4 mg IVPUSH Q8H PRN PRN Reason: Nausea and Vomiting Sodium Chloride (0.9 % Sodium Chloride Flush 3 Ml Syringe) 3 ml IVFLUSH QSHIFT [facility] Last Admin: 08/30/23 07:42 Dose: Not Given Home Medications Medication Instructions Recorded Confirmed Last Taken Type omeprazole 20 mg capsule,delayed 20 mg PO DAILY 11/25/22 11/25/22 Unknown History release Exam Exam Date and Time: November 26, 2022 1236 Height,Weight and Vital Signs: Height 5 ft 4 in Weight 77.9 kg Last Vital Signs Temp 97.3 F 11/26/22 12:23 Pulse 81 11/26/22 12:23 Resp 18 11/26/22 12:23 BP 173/61 H 11/26/22 12:23 Pulse Ox 96 11/26/22 12:23 O2 Del Method Room Air 11/26/22 12:23 Pertinent Lab Results Pertinent Lab Results: Laboratory Tests 11/25/22 11/25/22 11/25/22 18:54 18:54 18:54 WBC 9.2 RBC 3.10 L Hgb 5.2 L* Hct 19.4 L* MCV 62.6 L MCH 16.8 L MCHC 26.8 L RDW 19.5 H Plt Count 468 H MPV 8.7 L Immature Gran % (Auto) 0.9 H Neut % (Auto) 71.1 Lymph % (Auto) 18.2 L [place] % (Auto) 7.4 Eos % (Auto) 1.6 Baso % (Auto) 0.8 Lymph # (Auto) 1.7 [place] # (Auto) 0.7 Eos # (Auto) 0.2 Baso # (Auto) 0.1 Abs Immat Gran (auto) 0.08 H Absolute Neuts (auto) 6.5 Absolute Nucleated RBC 0.000 Nucleated RBC % (auto) 0.0 PT 12.1 INR 1.0 APTT 27.7 Sodium 141 Potassium 3.4 Chloride 109 H Carbon Dioxide 24 Anion Gap 11 L BUN 12 Creatinine 0.82 Estim Creat Clear Calc 56.8 Estimated GFR > 60 Random Glucose 119 H Estimat Average Glucose Hemoglobin A1c % Calcium 9.8 D Iron TIBC % Saturation Unsat Iron Binding Total Bilirubin 0.3 AST 13 ALT 8 Alkaline Phosphatase 69 Total Protein 6.4 L Albumin 3.9 Stool Occult Blood Blood Type Antibody Screen Crossmatch 11/25/22 11/25/22 11/25/22 20:10 21:14 21:19 WBC RBC Hgb Hct MCV MCH MCHC RDW Plt Count MPV Immature Gran % (Auto) Neut % (Auto) Lymph % (Auto) [place] % (Auto) Eos % (Auto) Baso % (Auto) Lymph # (Auto) [place] # (Auto) Eos # (Auto) Baso # (Auto) Abs Immat Gran (auto) Absolute Neuts (auto) Absolute Nucleated RBC Nucleated RBC % (auto) PT INR APTT Sodium Potassium Chloride Carbon Dioxide Anion Gap BUN Creatinine Estim Creat Clear Calc Estimated GFR Random Glucose Estimat Average Glucose Hemoglobin A1c % Calcium Iron < 6 L TIBC < 338 % Saturation TNP Unsat Iron Binding 332 Total Bilirubin AST ALT Alkaline Phosphatase Total Protein Albumin Stool Occult Blood POSITIVE Blood Type B Negative Antibody Screen NEGATIVE Crossmatch See Detail 11/26/22 11/26/22 11/26/22 04:30 04:30 04:30 WBC 10.0 RBC 3.83 L D Hgb 8.3 L D Hct 26.9 L D MCV 70.2 L D MCH 21.7 L MCHC 30.9 L RDW 27.6 H Plt Count 407 H MPV 9.0 L Immature Gran % (Auto) 0.4 Neut % (Auto) 74.6 H Lymph % (Auto) 15.1 L [place] % (Auto) 7.2 Eos % (Auto) 1.7 Baso % (Auto) 1.0 Lymph # (Auto) 1.5 [place] # (Auto) 0.7 Eos # (Auto) 0.2 Baso # (Auto) 0.1 Abs Immat Gran (auto) 0.04 H Absolute Neuts (auto) 7.4 Absolute Nucleated RBC 0.000 Nucleated RBC % (auto) 0.0 PT INR APTT Sodium 143 Potassium 3.3 Chloride 111 H Carbon Dioxide 23 Anion Gap 12 BUN 10 Creatinine 0.75 Estim Creat Clear Calc 62.1 Estimated GFR > 60 Random Glucose 117 H Estimat Average Glucose 100 Hemoglobin A1c % 5.1 Calcium 9.4 Iron TIBC % Saturation Unsat Iron Binding Total Bilirubin AST ALT Alkaline Phosphatase Total Protein Albumin Stool Occult Blood Blood Type Antibody Screen Crossmatch Airway Mallampati Class: II (small mouth) TM Dist: >3cm Neck ROM: Full Heart: rrr Lungs: cta Assessment and Plan Assessment Anesthesia Assessment: Anesthesia Plan Discussed and Chart Reviewed Final Anesthetic Review Family History of Problems with Anesthesia: No History of Problems with Anesthesia: No NPO: Yes ASA Class: II Final Preanesthetic Review: No Changes in Pt Med Stat, Meds/Allgs Chart Reviewed and Consent Obtained/Reviewed Patient Risk: Intermediate Procedure Risk: Intermediate Anesthetic Plan Anesthetic Plan: MAC: Disposition: Standard PACU
--- NOTE | 2022-11-26 12:50 | PC.NURSE ---
pt with refuses another attempt of IV, attempt x 2 without success (very tough skin, understands took prep wants another appt with am appt being diabetic. refuses. 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
--- NOTE | 2022-11-26 12:55 | MHC.SHP ---
Pre-Procedural Eval Section A Date of Service: 11/26/22 The patient is an INPATIENT: Yes The History & Physical has been completed within 30 days and I have reviewed it.: Yes Section B Chief Complaint: Dyspnea Allergies: Allergies Allergy/AdvReac Type Severity Reaction Status Date / Time No Known Allergies Allergy Verified 11/25/22 14:50 Plan Diagnosis/Plan: Unchanged I have reviewed the history and physical and performed a pertinent physical examination on my patient. No changes have occurred unless specified. Time Spent With Patient Time: Total time managing care of this patient today ____ minutes.
--- NOTE | 2022-11-26 12:55 | W.PM.OPN ---
Operative Note Operative Note Date of Service: 11/26/22 Narrative: Procedure Description: EGD Indication: anemia Anesthesia: MAC FLEXIBLE TRANSORAL UPPER GASTROINTESTINAL ENDOSCOPY UPPER ENDOSCOPY Consent: Indications for the procedure and potential complications of bleeding, perforation, reaction to medications and missed diagnosis were discussed with the patient and informed consent was obtained. Instrument: Olympus GIF H 190 J mid size upper endoscope Monitoring: Vital signs and clinical assessment, continuous EKG monitoring, Pulse oximetry, Carbon Dioxide monitoring and blood pressure monitoring were done throughout the procedure. Procedure: The patient was placed in the left lateral decubitis position and pre-procedure medications were administered and a bite block was placed. The endoscope was inserted into the mouth and advanced under direct vision to the third part of duodenum. A careful inspection was made as the upper endoscope was withdrawn including a retroflexed examination of the proximal stomach; Findings and interventions are described below. Findings: Larynx:normal Esophagus: GE junction at 33 cm, diaphragm hiatus at 37 cm, consistent with 4 cm fixed hiatal hernia, erosion and superficial ulceration noted at the GEJ, not bleeding, bx taken, schatzki ring also noted Stomach: Patchy gastric erythema. Biopsies were obtained. Grade 2 flap valve on retroflexed examination of the cardia. Duodenum: Normal bulb and descending duodenum, bx taken--there was a small non bleeding AVM that was ablated using APC Intervention: Biopsies as noted above, APC to AVM Impression/Findings: AVM gastritis hiatal hernia schatzki ring erosive esophagitis PLAN: GERd precautions PPI e.g pantoprazole 40 mg bid for 3 months then titrate down if she agrees then colonoscopy tomottow to r/o other path as nothing was actively bleeding
[2022-11-26] MEDS: PEG 3350/Na Sulf,Bicarb,Cl/KCL 4,000 ML SOLN.RECON 4000 ML PO (18:28)
[2022-11-26] MEDS: 0.9 % Sodium Chloride Flush 3 ML SYRINGE IVFLUSH (18:28)
[2022-11-27] VITALS (10 sets, daily range): BP systolic 138–178; BP diastolic 60–95; PULSE 66–90; RESP 12–23; TEMP 36.1–36.8; O2SAT 94–98
[2022-11-27 06:42] LABS: MANUAL DIFF FLAG NO
[2022-11-27 06:47] LABS: Basophils Absolute Auto 0.1 X10*3/uL (0.0-0.2); Basophils Percent Auto 0.8 % (0-2); Eosinophils Absolute Auto 0.3 X10*3/uL (0.0-0.4); Eosinophils Percent Auto 2.7 % (0-4); Hematocrit 30.9 % (37.0-47.0); Hemoglobin 9.8 g/dl (12.0-16.0); Imm Gran Abs Auto 0.06 X10*3/uL (0.00-0.03); Imm Gran Pct Auto 0.6 % (0.0-0.4); Lymphocytes Absolute Auto 1.7 X10*3/uL (1.2-4.9); Lymphocytes Percent Auto 17.5 % (20-40); Mean Corpuscular HGB Conc 31.7 g/dl (31.0-35.0); Mean Corpuscular Hemoglobin 23.1 pg (27.0-33.0); Mean Corpuscular Volume 72.9 fL (80.0-98.0); Mean Platelet Volume 8.9 fL (9.4-12.3); Monocytes Absolute Auto 0.8 X10*3/uL (0.1-1.2); Monocytes Percent Auto 8.4 % (2-11); Neutrophils Absolute Auto 6.9 x10*3/uL (2.0-8.3); Platelet Count 318 X10*3/uL (160-400); Red Blood Count 4.24 X10*6/uL (4.20-5.50); Red Cell Distribution Width 26.1 % (11.0-16.0); White Blood Count 9.8 X10*3/uL (4.8-10.8)
[2022-11-27 06:59] LABS: Anion Gap 12 (12-20); Blood Urea Nitrogen 9 mg/dL (9-16); Calcium 8.9 mg/dL (8.4-10.2); Carbon Dioxide 23 mmol/L (22-29); Chloride 111 mmol/L (96-108); Creatinine Clr Calc Pharmacy 66.9; Estimated Glomerular Filt Rate > 60; Glucose Random 91 mg/dL (60-115); Potassium 2.8 mmol/L (3.3-5.1); Sodium 143 mmol/L (135-145)
[2022-11-27] MEDS: cefTRIAXone sodium 1 GM in 0.9 % Sodium Chloride 50 ML IV (08:17)
[2022-11-27 08:34] LABS: Magnesium 1.9 mg/dL (1.6-2.6)
[2022-11-27] MEDS: Potassium Chloride/H20 10 MEQ/100 ML PIGGYBACK 100 MEQ IV ×4 (08:47→12:55)
--- NOTE | 2022-11-27 12:58 | HO.PM.IMPN ---
Subjective Subjective Date of Service: 11/27/22 Interval History: seen and examined this morning follow up for anemia no overnight events no bleeding noted Review of Systems Review of Systems: Yes all other systems are reviewed and are negative Constitutional Constitutional: Denies chills and Denies fever(s) ENT Ears, Nose, Mouth, and Throat: Denies dizziness Cardiovascular Cardiovascular: Denies chest pain and Denies dyspnea Respiratory Respiratory: Denies dyspnea Neurologic Neurologic: Denies dizziness Physical Exam Vital Signs: Vital Signs: Last Vital Signs Temp 96.9 F 11/27/22 11:33 Pulse 77 11/27/22 11:33 Resp 20 11/27/22 11:33 BP 158/68 H 11/27/22 11:33 Pulse Ox 96 11/27/22 11:33 O2 Del Method Room Air 11/27/22 11:33 O2 Flow Rate 6 11/26/22 13:34 BMI result Body Mass Index 29.5 Const: General: cooperative, comfortable, alert and awake Nutritional Appearance: average body habitus Orientation/consciousness: patient oriented x3 Resp: Effort & Inspection: normal respiratory effort, able to speak in complete sentences, no respiratory distress and no use of accessory muscles Cardio: Rate: regular rate Heart sounds: S1 normal heart sound present and S2 normal heart sound present GI: Inspection: No distended Palpation (GI): Soft to palpation Neuro: Other: grossly nonfocal General: patient oriented x3 Objective Data Active Medications Acetaminophen (Acetaminophen 325 Mg Tablet) 650 mg PO Q6H PRN PRN Reason: Pain, Mild (Pain Scale 1-3) Acetaminophen (Acetaminophen Supp 650 Mg Supp.Rect) 650 mg [place] Q6H PRN PRN Reason: Pain, Mild (Pain Scale 1-3) Ceftriaxone Sodium 1 gm/ (Sodium Chloride) 50 mls @ 100 mls/hr IV Q24H [facility] Last Infusion: 11/27/22 08:48 Dose: 0 mls/hr Documented By: AMEYA Melatonin (Melatonin 3 Mg Tablet) 6 mg PO BEDTIME PRN PRN Reason: Insomnia Ondansetron HCl (Ondansetron Hcl 4 Mg/2 Ml Vial) 4 mg IVPUSH Q8H PRN PRN Reason: Nausea and Vomiting Ondansetron HCl (Ondansetron Hcl 4 Mg/2 Ml Vial) 4 mg IVPUSH Q8H PRN PRN Reason: nausea Sodium Chloride (0.9 % Sodium Chloride Flush 3 Ml Syringe) 3 ml IVFLUSH QSHIFT [facility] Last Admin: 11/27/22 08:47 Dose: Not Given Documented By: AMEYA Non-Admin Reason: IV Running Labs 11/27/22 05:50 11/27/22 05:50 Labs: Laboratory Results - last 24 hr 11/27/22 11/27/22 05:50 05:50 MCV 72.9 L MCH 23.1 L MCHC 31.7 RDW 26.1 H Plt Count 318 MPV 8.9 L Immature Gran % (Auto) 0.6 H Neut % (Auto) 70.0 Lymph % (Auto) 17.5 L [place] % (Auto) 8.4 Eos % (Auto) 2.7 Baso % (Auto) 0.8 Lymph # (Auto) 1.7 [place] # (Auto) 0.8 Eos # (Auto) 0.3 Baso # (Auto) 0.1 Abs Immat Gran (auto) 0.06 H Absolute Neuts (auto) 6.9 Absolute Nucleated RBC 0.000 Nucleated RBC % (auto) 0.0 Anion Gap 12 Estim Creat Clear Calc 66.9 Estimated GFR > 60 Random Glucose 91 Calcium 8.9 Magnesium 1.9 Assessment and Plan (1) Anemia: Status: Acute Plan This is a 77-year-old female with no pertinent past medical history and not on prescription medications who has not seen a primary care physician in over 50 years presents to the emergency department for evaluation of abnormal labs and dyspnea. symptomatic Iron deficiency anemia baseline H/H unavailable Also concern for acute blood loss anemia with occult positive stool Status post 3 units packed red blood cells with elevation and H&H s/p EGD 11/26 AVM, gastritis, schatzki ring, erosive esophagitis - no active bleeding - plan for pantoprazole 40 bid x 3 months then titrate down plan for colonoscopy today Continue IV PPI for now Iron <6/TIBC <338, s/p IV iron infusion UTI Continue Rocephin no urine culture obtained, unable to add on plan to complete course of po ceftin upon discharge Reactive thrombocytosis due to iron deficiency anemia improved hypokalemia likely related to prep/GI loss replace and follow Elevated blood pressure readings No history of hypertension Monitor blood pressure closely and consider adding low-dose antihypertensive agent DVT prophylaxis:? Mechanical Attending Dr. Oates Full code continue hospitalization for colonoscopy/blood loss anemia Time Spent With Patient Time: Total time managing care of this patient today ____ minutes. Quality Stroke Does the patient have a stroke diagnosis?: No VTE Prior VTE?: No VTE Risk Level:: Medical - moderate - high VTE Device Contraindication: N/A - Device Ordered VTE Drug Contraindication: Treatment Not Indicated
--- NOTE | 2022-11-27 13:51 | P.CONAN_ITS ---
HPI - Anesthesia Eval Consult details Narrative: Colonoscopy PMFSH Active Problems Active Problems: All Active Problems (Updated 11/25/22 @ 21:47 by Rossana Medellin MD) Anemia (Acute) Chronic fatigue (Acute) Fatigue (Acute) Family History Family history of problems with anesthesia: No Surgical History History of Problems with Anesthesia: No Social History Social History Household Members: Spouse Housing: House Do you presently have visiting nurse or other home services: Yes Alcohol intake: former Patient Tobacco Use Status: Never used Tobacco Smoked in Last 30 Days: No Use of substances other than those prescribed or required for medical reasons: No Currently Displaying Signs/Symptoms of Drug Intoxication Withdrawal: No Have you been hit, kicked, punched, or otherwise hurt by someone within the past year? If so, by whom?: No Do you feel safe in your current relationship?: Yes Is there a partner from a previous relationship who is making you feel unsafe now?: No Are you made to feel afraid or neglected: No Judaism Healthcare Practices: evangelical Advance Directives: No Advance Directives Information Provided: Yes Do you have thoughts of harming others: None Do you have a plan to hurt others: No Plan Recently lost weight without trying: No Eating poorly because of decreased appetite: No Nutrition Risks: No Nutritional Risk Patient : No : No Poor oral hygiene: No service: No Meds Allergies Allergy/AdvReac Type Severity Reaction Status Date / Time No Known Allergies Allergy Verified 11/25/22 14:50 Active Medications: Current Medications Acetaminophen (Acetaminophen 325 Mg Tablet) 650 mg PO Q6H PRN PRN Reason: Pain, Mild (Pain Scale 1-3) Acetaminophen (Acetaminophen Supp 650 Mg Supp.Rect) 650 mg [place] Q6H PRN PRN Reason: Pain, Mild (Pain Scale 1-3) Ceftriaxone Sodium 1 gm/ (Sodium Chloride) 50 mls @ 100 mls/hr IV Q24H CM Last Infusion: 11/27/22 08:48 Dose: Infused Melatonin (Melatonin 3 Mg Tablet) 6 mg PO BEDTIME PRN PRN Reason: Insomnia Ondansetron HCl (Ondansetron Hcl 4 Mg/2 Ml Vial) 4 mg IVPUSH Q8H PRN PRN Reason: Nausea and Vomiting Ondansetron HCl (Ondansetron Hcl 4 Mg/2 Ml Vial) 4 mg IVPUSH Q8H PRN PRN Reason: nausea Sodium Chloride (0.9 % Sodium Chloride Flush 3 Ml Syringe) 3 ml IVFLUSH QSHIFT [facility] Last Admin: 11/27/22 08:47 Dose: Not Given Home Medications Medication Instructions Recorded Confirmed Last Taken Type omeprazole 20 mg capsule,delayed 20 mg PO DAILY 11/25/22 11/25/22 Unknown History release Exam Exam Date and Time: November 27, 2022 1351 Height,Weight and Vital Signs: Height 5 ft 4 in Weight 77.9 kg Last Vital Signs Temp 96.9 F 11/27/22 11:33 Pulse 77 11/27/22 11:33 Resp 20 11/27/22 11:33 BP 158/68 H 11/27/22 11:33 Pulse Ox 96 11/27/22 11:33 O2 Del Method Room Air 11/27/22 11:33 O2 Flow Rate 6 11/26/22 13:34 Pertinent Lab Results Pertinent Lab Results: Laboratory Tests 11/25/22 11/25/22 11/25/22 18:54 18:54 18:54 WBC 9.2 RBC 3.10 L Hgb 5.2 L* Hct 19.4 L* MCV 62.6 L MCH 16.8 L MCHC 26.8 L RDW 19.5 H Plt Count 468 H MPV 8.7 L Immature Gran % (Auto) 0.9 H Neut % (Auto) 71.1 Lymph % (Auto) 18.2 L [place] % (Auto) 7.4 Eos % (Auto) 1.6 Baso % (Auto) 0.8 Lymph # (Auto) 1.7 [place] # (Auto) 0.7 Eos # (Auto) 0.2 Baso # (Auto) 0.1 Abs Immat Gran (auto) 0.08 H Absolute Neuts (auto) 6.5 Absolute Nucleated RBC 0.000 Nucleated RBC % (auto) 0.0 PT 12.1 INR 1.0 APTT 27.7 Sodium 141 Potassium 3.4 Chloride 109 H Carbon Dioxide 24 Anion Gap 11 L BUN 12 Creatinine 0.82 Estim Creat Clear Calc 56.8 Estimated GFR > 60 Random Glucose 119 H Estimat Average Glucose Hemoglobin A1c % Calcium 9.8 D Magnesium Iron TIBC % Saturation Unsat Iron Binding Total Bilirubin 0.3 AST 13 ALT 8 Alkaline Phosphatase 69 Total Protein 6.4 L Albumin 3.9 Stool Occult Blood Blood Type Antibody Screen Crossmatch 11/25/22 11/25/22 11/25/22 20:10 21:14 21:19 WBC RBC Hgb Hct MCV MCH MCHC RDW Plt Count MPV Immature Gran % (Auto) Neut % (Auto) Lymph % (Auto) [place] % (Auto) Eos % (Auto) Baso % (Auto) Lymph # (Auto) [place] # (Auto) Eos # (Auto) Baso # (Auto) Abs Immat Gran (auto) Absolute Neuts (auto) Absolute Nucleated RBC Nucleated RBC % (auto) PT INR APTT Sodium Potassium Chloride Carbon Dioxide Anion Gap BUN Creatinine Estim Creat Clear Calc Estimated GFR Random Glucose Estimat Average Glucose Hemoglobin A1c % Calcium Magnesium Iron < 6 L TIBC < 338 % Saturation TNP Unsat Iron Binding 332 Total Bilirubin AST ALT Alkaline Phosphatase Total Protein Albumin Stool Occult Blood POSITIVE Blood Type B Negative Antibody Screen NEGATIVE Crossmatch See Detail 11/26/22 11/26/22 11/26/22 04:30 04:30 04:30 WBC 10.0 RBC 3.83 L D Hgb 8.3 L D Hct 26.9 L D MCV 70.2 L D MCH 21.7 L MCHC 30.9 L RDW 27.6 H Plt Count 407 H MPV 9.0 L Immature Gran % (Auto) 0.4 Neut % (Auto) 74.6 H Lymph % (Auto) 15.1 L [place] % (Auto) 7.2 Eos % (Auto) 1.7 Baso % (Auto) 1.0 Lymph # (Auto) 1.5 [place] # (Auto) 0.7 Eos # (Auto) 0.2 Baso # (Auto) 0.1 Abs Immat Gran (auto) 0.04 H Absolute Neuts (auto) 7.4 Absolute Nucleated RBC 0.000 Nucleated RBC % (auto) 0.0 PT INR APTT Sodium 143 Potassium 3.3 Chloride 111 H Carbon Dioxide 23 Anion Gap 12 BUN 10 Creatinine 0.75 Estim Creat Clear Calc 62.1 Estimated GFR > 60 Random Glucose 117 H Estimat Average Glucose 100 Hemoglobin A1c % 5.1 Calcium 9.4 Magnesium Iron TIBC % Saturation Unsat Iron Binding Total Bilirubin AST ALT Alkaline Phosphatase Total Protein Albumin Stool Occult Blood Blood Type Antibody Screen Crossmatch 11/27/22 11/27/22 05:50 05:50 WBC 9.8 RBC 4.24 Hgb 9.8 L Hct 30.9 L MCV 72.9 L MCH 23.1 L MCHC 31.7 RDW 26.1 H Plt Count 318 MPV 8.9 L Immature Gran % (Auto) 0.6 H Neut % (Auto) 70.0 Lymph % (Auto) 17.5 L [place] % (Auto) 8.4 Eos % (Auto) 2.7 Baso % (Auto) 0.8 Lymph # (Auto) 1.7 [place] # (Auto) 0.8 Eos # (Auto) 0.3 Baso # (Auto) 0.1 Abs Immat Gran (auto) 0.06 H Absolute Neuts (auto) 6.9 Absolute Nucleated RBC 0.000 Nucleated RBC % (auto) 0.0 PT INR APTT Sodium 143 Potassium 2.8 L Chloride 111 H Carbon Dioxide 23 Anion Gap 12 BUN 9 Creatinine 0.70 Estim Creat Clear Calc 66.9 Estimated GFR > 60 Random Glucose 91 Estimat Average Glucose Hemoglobin A1c % Calcium 8.9 Magnesium 1.9 Iron TIBC % Saturation Unsat Iron Binding Total Bilirubin AST ALT Alkaline Phosphatase Total Protein Albumin Stool Occult Blood Blood Type Antibody Screen Crossmatch Airway Mallampati Class: II TM Dist: >3cm Neck ROM: Limited Heart: rrr Lungs: cta Assessment and Plan Assessment Anesthesia Assessment: Anesthesia Plan Discussed and Chart Reviewed Final Anesthetic Review Family History of Problems with Anesthesia: No History of Problems with Anesthesia: No NPO: Yes ASA Class: II Final Preanesthetic Review: No Changes in Pt Med Stat, Meds/Allgs Chart Reviewed, Consent Obtained/Reviewed and Anes Risks/Benef Reviewed Patient Risk: Intermediate Procedure Risk: Low Anesthetic Plan Anesthetic Plan: MAC: and Agree w/ Assess. and Plan Disposition: Standard PACU
--- NOTE | 2022-11-27 14:39 | MHC.SHP ---
Pre-Procedural Eval Section A Date of Service: 11/27/22 The patient is an INPATIENT: Yes The History & Physical has been completed within 30 days and I have reviewed it.: Yes Section B Chief Complaint: Dyspnea Allergies: Allergies Allergy/AdvReac Type Severity Reaction Status Date / Time No Known Allergies Allergy Verified 11/25/22 14:50 Plan Diagnosis/Plan: Unchanged I have reviewed the history and physical and performed a pertinent physical examination on my patient. No changes have occurred unless specified. Time Spent With Patient Time: Total time managing care of this patient today ____ minutes.
--- NOTE | 2022-11-27 14:39 | W.PM.OPN ---
Operative Note Operative Note Date of Service: 11/27/22 Narrative: Operative Information Procedure Description: Colonoscopy Indication: anemia Anesthesia: MAC COLONOSCOPY Instrument: Olympus variable stiffness pediatric scope 190L Colonoscopy Monitoring: Vital signs and clinical assessment, continuous EKG monitoring, Pulse oximetry, Carbon Dioxide monitoring and blood pressure monitoring were done throughout the procedure. Colon withdrawal time was 12 minutes. Procedure: The patient was placed in the left lateral decubitis position and pre-procedure medications were administered. After a digital rectal examination of the ano-rectum, the video colonoscope was inserted into the rectum and advanced through the colon to the cecum/TI. The colonoscope was slowly withdrawn in a retrograde panoramic fashion and the colon mucosa was carefully examined including a retroflexed view of the rectum. Findings and interventions are described below. Procedure Difficulty: easy Findings: Terminal Ileum-normal Cecum:normal Ascending Colon: In mid point of AC to distal AC and just close to hepatic lfexure an irregular mass lesion with friable tissue was noted, bx were taken, and it felt hard to touch. The scope passed the mass easily. The distal and proximal points of the lesion were marked with Vandana Ink Transverse Colon -normal Descending Colon:normal Sigmoid Colon: normal Rectum: Retroflexion with small internal hemorrhoids, grade I Anorectum - normal Colon preparation: [place] Bowel Preparation Scale Right colon; 2 Transverse colon: 3 Left colon; 3 (0 = Unprepared colon segment with mucosa not seen due to solid stool that cannot be cleared. 1 = Portion of mucosa of the colon segment seen, but other areas of the colon segment not well seen due to staining, residual stool and/or opaque liquid. 2 = Minor amount of residual staining, small fragments of stool and/or opaque liquid, but mucosa of colon segment seen well. 3 = Entire mucosa of colon segment seen well with no residual staining, small fragments of stool or opaque liquid) Impression and Post Procedure Diagnosis: colonic mass internal hemorrhoids Plan: Low roughage diet, avoid hard meats Avoid straining at stool, epsom salts and sitz bath, anusol supps or cream surgical referral and CT imaging with contrast, CEA level Above findings were reviewed with the patient and relevant handouts were provided if indicated.
[2022-11-27] MEDS: 0.9 % Sodium Chloride Flush 3 ML SYRINGE IVFLUSH ×2 (17:09→23:31)
[2022-11-27] MEDS: iohexoL 350 MG/ML 100 ML INFUS..BTL IV (17:26)
[2022-11-27 19:46] LABS: Potassium 3.4 mmol/L (3.3-5.1)
[2022-11-28] VITALS: BP 160/50; PULSE 89; TEMP 36.9; O2SAT 97
[2022-11-28 04:00] VITALS: BP 160/58; PULSE 81; RESP 20; TEMP 37.1; O2SAT 96
[2022-11-28 07:15] VITALS: BP 156/67; PULSE 75; RESP 20; TEMP 36.7; O2SAT 94
[2022-11-28] MEDS: 0.9 % Sodium Chloride Flush 3 ML SYRINGE IVFLUSH (07:51)
[2022-11-28] MEDS: cefTRIAXone sodium 1 GM in 0.9 % Sodium Chloride 50 ML IV (07:57)
--- NOTE | 2022-11-28 10:10 | P.CONGS_ITS ---
History of Present Illness Consult details Consult date: 11/28/22 Narrative: Surgical consultation slightly diagnosed ascending colon neoplasm. Patient presented with profound dyspnea on exertion feeling weak. Workup demonstrated significant anemia with H&H of 5.2 and 19.4. Patient was admitted, underwent general restorative measures, and had colonoscopy on 11/27 demonstrated ascendi ng colonic tumor. CTA is also markedly elevated greater than 200, and CT scan performed last night demonstrated the ascending colon cancer was significant local regional adenopathy. Also question of a liver metastasis. Patient has not seen a physician in over 50 years. She had no prior antecedent GI symptoms of pain, bleeding, melena, or other abdominal complaints. [facility] Social History Social History Household Members: Spouse Housing: House Do you presently have visiting nurse or other home services: Yes Alcohol intake: former Patient Tobacco Use Status: Never used Tobacco Smoked in Last 30 Days: No Use of substances other than those prescribed or required for medical reasons: No Currently Displaying Signs/Symptoms of Drug Intoxication Withdrawal: No Have you been hit, kicked, punched, or otherwise hurt by someone within the past year? If so, by whom?: No Do you feel safe in your current relationship?: Yes Is there a partner from a previous relationship who is making you feel unsafe now?: No Are you made to feel afraid or neglected: No Zoroastrian Healthcare Practices: latter-day Advance Directives: No Advance Directives Information Provided: Yes Do you have thoughts of harming others: None Do you have a plan to hurt others: No Plan Recently lost weight without trying: No Eating poorly because of decreased appetite: No Nutrition Risks: No Nutritional Risk Patient : No : No Poor oral hygiene: No service: No Meds Allergies Allergy/AdvReac Type Severity Reaction Status Date / Time No Known Allergies Allergy Verified 11/25/22 14:50 Active Medications: Current Medications Acetaminophen (Acetaminophen 325 Mg Tablet) 650 mg PO Q6H PRN PRN Reason: Pain, Mild (Pain Scale 1-3) Acetaminophen (Acetaminophen Supp 650 Mg Supp.Rect) 650 mg [place] Q6H PRN PRN Reason: Pain, Mild (Pain Scale 1-3) Ceftriaxone Sodium 1 gm/ (Sodium Chloride) 50 mls @ 100 mls/hr IV Q24H CM Last Infusion: 11/28/22 08:30 Dose: Infused Melatonin (Melatonin 3 Mg Tablet) 6 mg PO BEDTIME PRN PRN Reason: Insomnia Ondansetron HCl (Ondansetron Hcl 4 Mg/2 Ml Vial) 4 mg IVPUSH Q8H PRN PRN Reason: Nausea and Vomiting Ondansetron HCl (Ondansetron Hcl 4 Mg/2 Ml Vial) 4 mg IVPUSH Q8H PRN PRN Reason: nausea Sodium Chloride (0.9 % Sodium Chloride Flush 3 Ml Syringe) 3 ml [facility] Last Admin: 11/28/22 07:51 Dose: 3 ml Home Medications Medication Instructions Recorded Confirmed Last Taken Type omeprazole 20 mg capsule,delayed 20 mg PO DAILY 11/25/22 11/25/22 Unknown History release Physical Exam Vital Signs: Vital Signs: Last Vital Signs Temp 98.1 F 11/28/22 07:15 Pulse 75 11/28/22 07:15 Resp 20 11/28/22 07:15 BP 156/67 H 11/28/22 07:15 Pulse Ox 94 11/28/22 07:15 O2 Del Method Room Air 11/28/22 07:15 O2 Flow Rate 6 11/26/22 13:34 BMI result Body Mass Index 29.5 Chest: Other: Chest breath sounds bilaterally, HS 1 in 2 GI: Other: Abdomen soft, moderately corpulent, benign Results Labs 11/27/22 05:50 11/27/22 19:02 Labs: BMP 11/27/22 11/27/22 19:02 19:02 Potassium Cancelled 3.4 D All other labs normal. Assessment and Plan (1) Mass of colon: Status: Acute Plan Patient is completing her restorative measures and the current plan from a surgical perspective is to see her in the office next week and direct further interventions and studies based on patient's clinical status and results of all the above mentioned studies and pending pathology report Time Spent With Patient Time: Total time managing care of this patient today ____ minutes. Procedures Date of Service Date of Service: 11/28/22
--- NOTE | 2022-11-28 10:24 | P.DS_ITS ---
DS: Providers Provider Date of Service: 11/28/22 Date of admission: 11/25/22 21:45 Date of discharge: 11/28/22 Primary care physician: Everardo Blair MD Consults: 11/25/22 21:58 Consult to Gastroenterology Routine Consulting Provider: Abby Blanton Reason for consultation: GI bleed 11/27/22 15:04 Consult to General Surgery Routine Consulting [place] [facility] [facility] Reason for consultation: colon mass Attending physician on discharge: Butch Oates Discharging clinician: Ruthann Quinn DS: Diagnosis Discharge Diagnosis (1) Mass of colon: Status: Acute (2) Anemia: Status: Acute DS: Summary Hospital Course Hospital Course: From H&P on day of admission This is a 77-year-old female with no pertinent past medical history and not on prescription medications who has not seen a primary care physician in over 50 years presents to the emergency department for evaluation of abnormal labs and dyspnea.? Patient states she has been having dyspnea with exertion that has been ongoing for the last 6 months.? It has been progressive over the last 1 month and is worse with ambulation.? Patient established care with a primary care physician on the day of presentation and got blood work done.? Her hemoglobin was found to be low and she was sent to the ER.? Patient does endorse intermittent black stools and loose stools over the last 6 months.? No belly pain.? Patient has never had a colonoscopy in the past.? Denies chewing/smoking tobacco or excessive alcohol use.? She denies fever, chills, chest discomfort, palpitations, abdominal pain, changes in urinary or bowel habits. In the emergency department, stool occult test was positive and patient's hemogl obin was found to be 5.2 symptomatic Iron deficiency anemia/blood loss anemia, chronicity unspecified baseline H/H unavailable. Status post 3 units packed red blood cells with improvement in H/H. H/H has remained stable, no evidence of gross bleeding. She was seen in consultation by GI. She underwent EGD 11/26 which showed evidence of AVM, gastritis, schatzki ring, erosive esophagitis - no active bleeding - plan for pantoprazole 40 bid x 3 months then titrate down. She had colonoscopy 11/27 showing colonic mass & internal hemorrhoids. She had CT scan of the abdomen and pelvis which revealed a large circumferential apple-core type lesion within the ascending colon consistent with a primary colonic malignancy with local regional lymphadenopathy. There were focal areas of decreased attenuation within the liver and outpatient MRI of the liver with and without contrast is recommended. Iron <6/TIBC <338, s/p IV iron infusion. She was evaluated by general surgery, who recommended outpatient follow up next week and further plans based on pathology report. CEA was obtained and is elevated at 230. Outpatient follow up with oncology - referral sent. Pathology report pending at the time of discharge. UTI no symptoms. treated with 3 days of IV antibiotics during hospital stay. hypokalemia likely related to prep/GI loss. resolved with replacement Time Spent with Patient Time attestation: Total time managing care of this patient today ____ minutes. Discharge coordination time: Greater than 30 minutes Quality: Safe Use of Opioids Does Pt have an Active Cancer Diagnosis on the Problem List?: No Quality: Stroke Does the patient have a stroke diagnosis?: No Physical Exam Vital Signs: Vital Signs: Last Vital Signs Temp 98.1 F 11/28/22 07:15 Pulse 75 11/28/22 07:15 Resp 20 11/28/22 07:15 BP 156/67 H 11/28/22 07:15 Pulse Ox 94 11/28/22 07:15 O2 Del Method Room Air 11/28/22 07:15 O2 Flow Rate 6 11/26/22 13:34 BMI result Body Mass Index 29.5 Const: General: cooperative, comfortable, alert and awake Nutritional Appearance: average body habitus Orientation/consciousness: patient oriented x3 Resp: Effort & Inspection: normal respiratory effort, able to speak in complete sentences, no respiratory distress and no use of accessory muscles Cardio: Rate: regular rate Heart sounds: S1 normal heart sound present and S2 normal heart sound present GI: Inspection: No distended Palpation (GI): Soft to palpation Neuro: Other: grossly nonfocal General: patient oriented x3 DS: Data Data Completed and Pending Completed studies during hospitalization [Text1]: Pending at discharge 11/26/22 13:16 Surgical [PTH] Routine Pending studies at discharge: Pending at discharge 11/27/22 15:05 Surgical [PTH] Routine Labs on day of discharge: Laboratory Results - last 24 hr 11/27/22 11/27/22 19:02 19:02 Potassium Cancelled 3.4 D Carcinoembryonic Ag 230.[address] scan - abdomen: Radiologist's impression: ITS Impressions Abdomen/Pelvis CT 11/27/22 17:26 IMPRESSION: 1. Large circumferential apple core type lesion within the ascending colon consistent with a primary colonic malignancy. Local regional lymphadenopathy. 2. Focal area of decreased attenuation within segment 4A of the liver as above. This could represent focal fatty infiltration but a mass lesion more likely based on the above features. Recommend MRI of the liver without and with contrast for further assessment. 3. Small layering pleural effusions. 4. Nonspecific free fluid in the pelvis. Fleischner guidelines were followed. Discharge Plan Discharge Anticipated Discharge Date/Time: 11/28/22 11:51 Patient Disposition: Home, Self-Care Discharge Diagnosis: colon mass iron deficiency anemia Referrals: Wanda Recio MD [Physician] - 1 Week Hayes Valles MD [Physician] - 1 Week Everardo Blair MD [Primary Care Provider] - 1 Week Discharge Medications: New pantoprazole 40 mg tablet,delayed release (DR/EC) 40 mg PO BID 30 Days Qty: 60 0RF Discontinued omeprazole 20 mg Capsule,Delayed Release(Dr/Ec) 20 mg PO DAILY Discharge Orders: Discharge Order (Routine); Ordered 11/28/22 Ordered By: Ruthann Quinn Diet: Advance to usual diet Activity on Discharge: No heavy lifting Stand Alone Forms: Patient Portal Discharge page Care Plan Goals: see below Health Concerns: colon mass anemia hypokalemia gastritis/esophagitis UTI - completed antibiotics during stay Plan of Treatment: keep follow up appointment with Dr. Valles next week call to schedule follow up appointment with oncology office call to schedule follow up appointment with Dr. Michael for follow up of colon mass, borderline blood pressure readings, and anemia You will need an abdominal MRI with and without contrast done to evaluate liver more closely take pantoprazole twice daily for three months and then taper per GI recommendation pathology report pending recommend low roughage diet (limit fiber intake) and avoid hard meats per GI rec for now H/H has remained stable - 10.6/33.8 on day of discharge Assessment: see discharge summary
[2022-11-28 11:09] VITALS: BP 149/69; PULSE 80; RESP 20; TEMP 36.6; O2SAT 95
--- NOTE | 2022-11-28 12:05 | MHC.CM.PN ---
IMM given 11/28. Pt is medically cleared for D/C home self-care. Pts daughter will transport her home.
[2022-11-28 13:17] LABS: Hematocrit 33.8 % (37.0-47.0); Hemoglobin 10.6 g/dl (12.0-16.0)
--- NOTE | 2022-11-28 14:35 | HO.POSTANES ---
Post Anesthesia Evaluation Post Anesthesia Evaluation Date of Service: 11/27/22 Vital Signs: Vital Signs Temp Pulse Resp BP Pulse Ox O2 Del Method 11/28/22 11:09 97.9 F 80 20 149/69 H 95 Room Air 11/28/22 07:15 98.1 F 75 20 156/67 H 94 Room Air 11/28/22 04:00 98.7 F 81 20 160/58 H 96 Anesthesia: Monitored Mental Status: Awake Pain Control: Satisfactory Nausea/Vomiting: None Hydration: Adequate Anesthesia-Related Issues: No Anes. Related Issues
== END 2022-11-28 15:01 | disposition home or self-care (01) | DRG 374 ==
LOC: HO.ED 21:47 → HO.EDOVER 22:04 → HO.IMC 11-26 07:38
PROVIDERS: Internal Medicine Gastroenterology; Nurse Practitioner Acute Care; Pathology Anatomic Pathology & Clinical Pathology; Registered Nurse Emergency; Admitting Provider Student in an Organized Health Care Education/Training Program; Emergency Provider Emergency Medicine; PCP Internal Medicine; Visit Provider Physician Assistant Medical
PROC: 0DJ08ZZ Inspection of Upper Intestinal Tract, Via Natural or Artificial Opening Endoscopic (ICD-10-PCS; CPT 43235; principal; 2022-11-26 12:50)
PROC: 0DJD8ZZ Inspection of Lower Intestinal Tract, Via Natural or Artificial Opening Endoscopic (ICD-10-PCS; CPT 45378; principal; 2022-11-27 15:30)
DX: C18.2 Malignant neoplasm of ascending colon (principal); K22.11 Ulcer of esophagus with bleeding; K31.811 Angiodysplasia of stomach and duodenum with bleeding; K29.71 Gastritis, unspecified, with bleeding; C78.7 Secondary malignant neoplasm of liver and intrahepatic bile duct; D62 Acute posthemorrhagic anemia; N39.0 Urinary tract infection, site not specified; K44.9 Diaphragmatic hernia without obstruction or gangrene; K64.0 First degree hemorrhoids; D63.0 Anemia in neoplastic disease; K22.2 Esophageal obstruction; D75.838 Other thrombocytosis; E87.6 Hypokalemia
CPT/HCPCS: 36415; 74177; 80048; 80053; 81210; 82272; 82378; 83036; 83540; 83735; 84132; 85014; 85018; 85025; 85610; 85730; 86850; 86900; 86901; 86923; 88305; 88341; 88342; 93005; 99285; J0696; J1756; P9016; Q9967

== ENCOUNTER → 2022-11-25 18:51 | Outpatient (BNV) | payer BC, SELFPAY | PROVIDERS: Emergency Provider Emergency Medicine; PCP Internal Medicine; Visit Provider Student in an Organized Health Care Education/Training Program | DX: K63.89 Other specified diseases of intestine (principal); D64.9 Anemia, unspecified | CPT/HCPCS: 99222; 99232; 99239 ==

== ENCOUNTER → 2022-11-25 21:45 | Outpatient (BNV) | payer MEDICARE, SELFPAY | PROVIDERS: Admitting Provider Student in an Organized Health Care Education/Training Program; Emergency Provider Emergency Medicine; PCP Internal Medicine; Visit Provider Surgery | DX: K63.89 Other specified diseases of intestine (principal) | CPT/HCPCS: 99222 ==

== ENCOUNTER → 2022-11-25 21:45 | Outpatient (BNV) | payer MEDICARE, SELFPAY | PROVIDERS: Admitting Provider Student in an Organized Health Care Education/Training Program; Emergency Provider Emergency Medicine; PCP Internal Medicine; Visit Provider Internal Medicine Gastroenterology | DX: D64.9 Anemia, unspecified (principal); K22.2 Esophageal obstruction; K29.70 Gastritis, unspecified, without bleeding; K20.90 Esophagitis, unspecified without bleeding | CPT/HCPCS: 43239; 43270; 45380; 45381; 99222 ==

== ENCOUNTER 2022-12-02 11:09 | Outpatient (AMB) | payer MEDICARE, SELFPAY ==
--- NOTE | 2022-12-02 11:15 | A.OFFVIS_ITS ---
Intake Vital Signs 12/02/22 11:19 Height 5 ft 4 in Weight 172 lb BMI 29.5 BP 181/78 H Blood Pressure Location Rt brachial Position Sitting Pulse 99 Intake Visit Reasons: ascending colon neoplasm, [facility] [place] Intake Note: Patient here for ascending colon neoplasm. F/u with PCP Dr. Blair scheduled for 12-18-22. Family saw CT scan report via patient portal. 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 She now presents here for follow-up with her daughter from [facility], her son, and her . This is a continuation of conversation we had during her hospitalization. Patient had profound anemia with an H&H of 5 and 19. She underwent generous started measures and colonoscopy demonstrating nearly obstructing right colon cancer. CEA was markedly elevated greater than 200. CT scan demonstrated findings consistent with nearly obstructing right colon cancer, marked adenopathy, and question of a liver lesion. Patient's discharge H&H were approximately 10 and 33. At present, she feels well, unlike when she presented to the hospital approximately week ago. [facility] Social History (Updated 12/02/22 @ 11:19 by PAO Corey) Household Members: Spouse Housing: House Do you presently have visiting nurse or other home services: Yes Alcohol intake: current Alcohol intake frequency: holidays/special occasions only Alcohol type: wine Patient Tobacco Use Status: Never used Tobacco service: No Physical Exam Vital Signs: Last Vital Signs Pulse 99 12/02/22 11:19 BP 181/78 H 12/02/22 11:19 BMI result Body Mass Index 29.5 Chest Other: Chest breath sounds bilaterally, HS 1 in 2 GI Other: Abdomen soft, benign Assessment & Plan Assessment & Plan (1) Mass of colon: Code(s): K63.89 - Other specified diseases of intestine (2) Anemia: Code(s): D64.9 - Anemia, unspecified Plan I discussed the patient and family that her tumor is nearly obstructing and bleeding. My current recommendation which was reviewed with Dr. Teixeira is to obtain a PET scan, then arrange for surgical resection of this bleeding near obstructing tumor. If not, she will once again re-presented with the profound anemia. Patient is not a candidate for neoadjuvant therapy. The concern is at a 2 will bleed, obstruction, or perforate. Risks, benefits, alternatives of the procedure were reviewed the patient who and included but not limited to bleeding, infection, recurrence, numbness, pain, scarring, ostomy placement and the patient wishes to proceed. All questions were answered. Current plan is to arrange for PET scan for next week and arrange for surgery soon after. Coding Level of Care Code Est Pt Level 5 (26881) Diagnoses Mass of colon K63.89 Anemia D64.9
[2022-12-02 11:19] VITALS: BP 181/78; PULSE 99; BMI 29.5
== END 2022-12-02 12:13 | disposition home or self-care (01) ==
PROVIDERS: PCP Internal Medicine; Visit Provider Surgery
DX: K63.89 Other specified diseases of intestine (principal); D64.9 Anemia, unspecified
CPT/HCPCS: 99214

== ENCOUNTER → 2022-12-02 11:09 | Outpatient (BNVA) | payer MEDICARE, SELFPAY | PROVIDERS: PCP Internal Medicine; Visit Provider Surgery | DX: K63.89 Other specified diseases of intestine (principal); D64.9 Anemia, unspecified | CPT/HCPCS: 99212 ==

== ENCOUNTER 2022-12-09 10:00 | Outpatient (REF) | payer MEDICARE, SELFPAY ==
--- NOTE | ~2022-12-09 | PE_ITS ---
EXAMINATION: Fluorine-18 FDG PET/CT Scan CLINICAL INDICATION: Initial treatment management. Ascending colon cancer. PROCEDURE: 60 minutes following the intravenous administration of 14.8 mCi of fluorine 18 FDG, images from the base of the skull to the mid thighs were obtained using a combined PET/CT scanner with CT scan based attenuation correction. No intravenous contrast was administered. Transverse, coronal, sagittal, and volume reconstruction projections were obtained. The patient's blood glucose as determined by a finger stick, was 114 mg/dl immediately prior to injection. The radiotracer was injected intravenously through the right hand superficial vein, without any complications. Total CT exam dose-length product 738.46 mGy-cm * These CT images were obtained using dose optimization techniques as appropriate, variously including the following: Automated exposure control * Adjustment of mA and/or kV according to patient size (this includes techniques or standardized protocols for targeted exams where dose is matched to indication/reason for exam; i.e. extremities or head) * Use of iterative reconstruction technique COMPARISON: CT of the abdomen and pelvis done on 11/27/2022. FINDINGS: METABOLIC REFERENCE: Mediastinal blood pool: 3.3(current). Liver : 4.3(current). NECK AND VISUALIZED HEAD: No focal FDG avid disease. THORAX: No focal FDG avid disease. Specifically, no evidence of any suspicious lung nodule and/or mediastinal lymphadenopathy or pleural or pericardial effusion. ABDOMEN AND PELVIS: Previously documented marked circumferential focal thickening involving the ascending colon shows intense tracer avidity with SUV max of 21.3 (161/267), consistent with clinically known ascending colonic malignancy. There are few shotty adjacent mesenteric lymph nodes present however, without any radiotracer avidity. The remainder of the large bowel appear collapsed. The small bowel loops are decompressed. [id number]-[id number] size hiatal hernia is noted. Mild tracer avidity within the stomach may represent inflammatory/gastritis related changes. The index focal hypodense lesion seen on prior CT of the abdomen and pelvis at segment 4 A of the left lobe of the liver on the study dated 11/27/2022 does not show any radiotracer avidity. The mean Hounsfield value of this focal region measures 15.6 while the remainder of the liver measures 45.3 and the splenic mean Hounsfield value of 52.8. The findings may represent focal fatty infiltration. However, follow-up multiphasic pre and postcontrast MRI of the liver is recommended for further clarification. The gallbladder, biliary tree, pancreas, both adrenals, the spleen and both kidneys otherwise appear unremarkable. There are no tracer avid retroperitoneal, mesenteric, pelvic and/or groin lymphadenopathy. MUSCULOSKELETAL: No suspicious focal FDG avid disease. VASCULAR: Calcific atherosclerotic disease of the aorta and its branches. No evidence of aneurysm. THE SITE(S) OF MOST INTENSE FDG AVIDITY AND SUV MAX: Clinically known primary site of disease involving the ascending colon with SUV max of 21.3. PET/PET CT fusion skull to thigh IMPRESSION: 1. Previously documented, clinically known site of primary malignancy involving the ascending colon is reidentified, shows circumferential diffuse mural thickening and intense FDG avidity with SUV max of 21.3. There are few adjacent non-tracer avid shotty mesenteric lymph nodes present. 2. The site of the index hypodense lesion at segment 4 A of left lobe of the liver as was documented on the prior CT study dated 11/27/2022 shows no evidence of any FDG avidity. The mean Hounsfield value measures 15.6 while the remainder of the liver shows mean Hounsfield value of 45.3. The finding may represent focal fatty infiltration. A follow-up multiphasic pre and postcontrast MRI of the liver is recommended for further clarification. 3. No evidence of tracer avid disease outside the abdomen and pelvis to suspect metastasis.
== END 2022-12-09 10:01 | disposition home or self-care (01) ==
LOC: HO.PET 10:00
PROVIDERS: PCP Internal Medicine; Visit Provider Surgery
DX: Z13.89 Encounter for screening for other disorder (principal)

== ENCOUNTER 2022-12-11 11:13 | Inpatient (IN) | payer MEDICARE, SELFPAY ==
[2022-12-09 13:37] VITALS: BMI 29.2
--- NOTE | 2022-12-09 13:57 | P.CONAN_ITS ---
Documented by User: Keerthi Nuñez NP 12/09/22 14:02 HPI - Anesthesia Eval Consult details Narrative: 77yo F for Exploratory Laparotomy,Right colon resection,poss ostomy 10/2022 [facility] [place] with severe anemia. Required 3 units PRBC. s/p EGD and [place] while inpt. Friable mass on colonoscopy PMFSH Active Problems Active Problems: All Active Problems (Updated 12/09/22 @ 13:37 by Casie Deluna RN) Mass of colon (Acute) Anemia (Acute) Fatigue (Acute) Past Medical History Medical History GERD (gastroesophageal reflux disease) History of recent blood transfusion Anemia Mass of colon Family History Family history of problems with anesthesia: No Surgical History Surgical History Hx of tonsillectomy History of esophagogastroduodenoscopy (EGD) H/O colonoscopy History of Problems with Anesthesia: No Social History Social History Household Members: Spouse Housing: House Are you a primary healthcare customer service to a significant other at home: Yes (states has Parkinson's, is pretty good but she cares for him as wel) Do you presently have visiting nurse or other home services: No Alcohol intake: current Alcohol intake frequency: does not drink Alcohol type: wine Patient Tobacco Use Status: Never used Tobacco Use of substances other than those prescribed or required for medical reasons: No Have you been hit, kicked, punched, or otherwise hurt by someone within the past year? If so, by whom?: No Are you DNR?: No Advance Directives: No Advance Directives Information Provided: Yes (brochure mailed) Advance Directives on File: No Recently lost weight without trying: Yes How much weight loss: 24-33 pounds Eating poorly because of decreased appetite: Yes Nutrition screen score: 6 Nutrition Risks: Surgical patient >75years Poor oral hygiene: No service: No Meds Allergies Allergy/AdvReac Type Severity Reaction Status Date / Time No Known Allergies Allergy Verified 12/11/22 08:56 Exam Exam Date and Time: December 09, 2022 1357 Height,Weight and Vital Signs: Height 5 ft 4 in Weight 77.111 kg Pertinent Lab Results Pertinent Lab Results: Laboratory Tests 11/27/22 11/27/22 11/27/22 05:50 05:50 19:02 WBC 9.8 Hgb Hct Plt Count 318 Sodium 143 Potassium 3.4 D Chloride 111 H Carbon Dioxide 23 BUN 9 Creatinine 0.70 11/28/22 12:59 WBC Hgb 10.6 L Hct 33.8 L Plt Count Sodium Potassium Chloride Carbon Dioxide BUN Creatinine Narrative Narrative: EKG 10/2022 Vent. Rate : 093 BPM Atrial Rate : 093 BPM P-R Int : 148 ms QRS Dur : 072 ms QT Int : 358 ms P-R-T Axes : 039 -05 042 degrees QTc Int : 445 ms Normal sinus rhythm Nonspecific ST abnormality Abnormal ECG No previous ECGs available CT abdomen pelvis w IV con 10/2022 IMPRESSION: 1. Large circumferential apple core type lesion within the ascending colon consistent with a primary colonic malignancy. Local regional lymphadenopathy. 2. Focal area of decreased attenuation within segment 4A of the liver as above. This could represent focal fatty infiltration but a mass lesion more likely based on the above features. Recommend MRI of the liver without and with contrast for further assessment. 3. Small layering pleural effusions. 4. Nonspecific free fluid in the pelvis. Assessment and Plan Final Anesthetic Review Family History of Problems with Anesthesia: No History of Problems with Anesthesia: No Documented by User: Camryn Pompa MD 12/11/22 10:41 [facility] Past Medical History Medical History GERD (gastroesophageal reflux disease) History of recent blood transfusion Anemia Mass of colon Surgical History Surgical History Hx of tonsillectomy History of esophagogastroduodenoscopy (EGD) H/O colonoscopy Social History Social History Household Members: Spouse Housing: House Are you a primary healthcare customer service to a significant other at home: Yes (states has Parkinson's, is pretty good but she cares for him as wel) Do you presently have visiting nurse or other home services: No Alcohol intake: current Alcohol intake frequency: does not drink Alcohol type: wine Patient Tobacco Use Status: Never used Tobacco Use of substances other than those prescribed or required for medical reasons: No Have you been hit, kicked, punched, or otherwise hurt by someone within the past year? If so, by whom?: No Are you DNR?: No Advance Directives: No Advance Directives Information Provided: Yes (brochure mailed) Advance Directives on File: No Recently lost weight without trying: Yes How much weight loss: 24-33 pounds Eating poorly because of decreased appetite: Yes Nutrition screen score: 6 Nutrition Risks: Surgical patient >75years Poor oral hygiene: No service: No Meds Allergies Allergy/AdvReac Type Severity Reaction Status Date / Time No Known Allergies Allergy Verified 12/11/22 08:56 Exam Airway Mallampati Class: IV TM Dist: <=3cm Neck ROM: Full Loose/Missing/Broken Teeth: No Heart: RRR Lungs: CTA Assessment and Plan Assessment Anesthesia Assessment: Anesthesia Plan Discussed and Chart Reviewed Final Anesthetic Review NPO: Yes ASA Class: II Final Preanesthetic Review: Meds/Allgs Chart Reviewed, Consent Obtained/Reviewed and Anes Risks/Benef Reviewed Patient Risk: Low Procedure Risk: Intermediate Anesthetic Plan Anesthetic Plan: GA Disposition: Standard PACU
[2022-12-11] VITALS (12 sets, daily range): BP systolic 118–187; BP diastolic 52–74; PULSE 62–79; RESP 14–20; TEMP 36–36.4; O2SAT 95–98
--- NOTE | 2022-12-11 06:07 | MHC.SHP ---
Pre-Procedural Eval Section A Date of Service: 12/11/22 The patient is an INPATIENT: Yes Changes since office visit: No Cold of Flu in the past 2 weeks, No New Medical Problems, No Changes in Medication and No Patient answered all questions The History & Physical has been completed within 30 days and I have reviewed it.: Yes Section B Chief Complaint: Other specified diseases of intestine Allergies: Allergies Allergy/AdvReac Type Severity Reaction Status Date / Time No Known Allergies Allergy Verified 12/02/22 11:17 Plan I have reviewed the history and physical and performed a pertinent physical examination on my patient. No changes have occurred unless specified. Time Spent With Patient Time: Total time managing care of this patient today ____ minutes.
[2022-12-11] MEDS: Lactated Ringers 1,000 ML 100 ML IVCONT (09:31)
[2022-12-11 09:52] LABS: Hematocrit 32.6 % (37.0-47.0); Hemoglobin 10.2 g/dl (12.0-16.0); Mean Corpuscular HGB Conc 31.3 g/dl (31.0-35.0); Mean Corpuscular Hemoglobin 23.7 pg (27.0-33.0); Mean Corpuscular Volume 75.8 fL (80.0-98.0); Mean Platelet Volume 8.7 fL (9.4-12.3); Platelet Count 334 X10*3/uL (160-400); White Blood Count 6.3 X10*3/uL (4.8-10.8)
--- NOTE | 2022-12-11 10:00 | PC.NURSE ---
During med rec in preop, the patient explained that the last dose of her PO antibiotics, neomycin and erythromycin, at home she was not able to get down due to nausea. Dr. Valles aware.
--- NOTE | 2022-12-11 10:05 | PC.NURSE ---
Preop CBC results shared with Dr. Pompa. No new orders, may proceed with surgery.
--- NOTE | 2022-12-11 11:40 | PHA.MEDREC ---
Pharmacy Consult ? Medication Reconciliation Pharmacy has completed the medication reconciliation. Reviewed med rec done by nursing
[2022-12-11] MEDS: Lactated Ringers 1,000 ML 80 ML IVCONT (12:44)
--- NOTE | 2022-12-11 13:12 | P.OP_ITS ---
Operative Note Operative Note Date of Service: 12/11/22 Narrative: Preoperative diagnosis: [] bleeding, nearly obstructing mid ascending colon cancer Postop diagnosis: [] same Procedure [] Exploratory laparotomy, ileal right colectomy/appendectomy with anastomosis of distal ileum to proximal transverse colon. Surgeon: [] Hai Remediation Project Engineer: [] SERINA Snyder Type of Anesthesia: [] general Indication for surgery: [] patient has a large ,bleeding ,nearly obstructing tumor involving the mid ascending colon. Patient was admitted approximately 2 weeks ago with an H&H of appr. , where she underwent restorative measures including blood transfusions and colonoscopy which demonstrated lesion in question. Patient had CEA level which was markedly elevated (greater than 200 ), CT scan which confirmed the tumor and regional lymph adenopathy and a question of a liver mass.. PET scan demonstrated only the tumor and regional lymphadenopathy with no pear picker isotope to the liver lesion. Intraoperative findings demonstrated a very large tumor involving the mid ascending colon. Liver demonstrated grossly and with palpation no evidence of disease. Regional lymphadenectomy was performed with the right hemicolectomy. Findigs: [] patient was brought to the operating room, placed on the operating table in a supine position, after adequate level of general anesthesia was induced, the patient's abdomen was prepped and draped in usual sterile fashion. Using a midline periumbilical small midline incision, this carried down through skin, subcutaneous tissue, and linea alba. Posterior fascia and peritoneum were opened and extended along the length of the incision. Packs and retractors were placed to enhance exposure. Findings were as noted above. Cecum and ascending colon were mobilized by taking down the lateral peritoneal reflection. With adequately mobilized bowel, the colon was transected at the proximal transverse colon and distal ileum , using GI staplers. Mesentery of the appendix was taken down using double firing of ligature device. Also the mesentery of the right colon and distal ileum were taken down using double firing of ligature device. Specimen sent to pathology. A distal ileal to proximal transverse colon functional end-to-end anastomosis was performed using MONTEZ 60 and TA 60 staplers. The bowel used in the Anastomosis was well perfused and under no tension. Crotch of the anastomosis was buttressed using interrupted 3-0 silk sutures. Mesenteric rent was closed using up to 3-0 Vicryl sutures. Succus entericus traversed the anastomosis with no obvious leak. Abdominal cavity was copiously irrigated, and secured hemostasis. Wound was closed in the following manner; mass closure using looped 0 PDS suture was used to close the midline incision. Interrupted inverted dermal 3-0 Vicryl sutures f ollowed by running subcuticular 4-0 Vicryl sutures were placed. Steri-Strips And sterile dressings were applied. Wound was infiltrated 0.5% Marcaine at completion. Sponge, needle, and instrument counts reported correct. Patient tolerated the procedure well and emerged anesthesia stable condition. EBL minimal
[2022-12-11] MEDS: Acetaminophen 1,000 MG/100 ML PIGGYBACK 400 MG IV ×2 (16:18→22:30)
[2022-12-11] MEDS: Omeprazole 20 MG CAPSULE.DR PO (16:19)
[2022-12-12] MEDS: Lactated Ringers 1,000 ML 80 ML IVCONT ×2 (01:12→14:46)
[2022-12-12 04:00] VITALS: BP 164/58; PULSE 60; RESP 19; TEMP 36.2; O2SAT 96
[2022-12-12] MEDS: Acetaminophen 1,000 MG/100 ML PIGGYBACK 400 MG IV ×4 (04:31→22:41)
[2022-12-12] MEDS: Omeprazole 20 MG CAPSULE.DR PO ×2 (05:53→17:15)
[2022-12-12 06:13] LABS: MANUAL DIFF FLAG NO
[2022-12-12 06:17] LABS: Basophils Percent Auto 0.1 % (0-2); Hematocrit 28.3 % (37.0-47.0); Imm Gran Abs Auto 0.05 X10*3/uL (0.00-0.03); Imm Gran Pct Auto 0.4 % (0.0-0.4); Mean Corpuscular HGB Conc 31.8 g/dl (31.0-35.0); Mean Corpuscular Hemoglobin 23.8 pg (27.0-33.0); Mean Corpuscular Volume 74.9 fL (80.0-98.0); Mean Platelet Volume 8.9 fL (9.4-12.3); Monocytes Absolute Auto 0.8 X10*3/uL (0.1-1.2); Monocytes Percent Auto 6.2 % (2-11); Neutrophils Absolute Auto 10.4 x10*3/uL (2.0-8.3); Neutrophils Percent Auto 85.3 % (45-73); Platelet Count 297 X10*3/uL (160-400); Red Blood Count 3.78 X10*6/uL (4.20-5.50); White Blood Count 12.2 X10*3/uL (4.8-10.8)
[2022-12-12 06:32] LABS: Anion Gap 12 (12-20); Blood Urea Nitrogen 7 mg/dL (9-16); Calcium 8.9 mg/dL (8.4-10.2); Carbon Dioxide 23 mmol/L (22-29); Chloride 109 mmol/L (96-108); Creatinine Clr Calc Pharmacy 62.1; Estimated Glomerular Filt Rate > 60; Glucose Random 136 mg/dL (60-115); Potassium 2.8 mmol/L (3.3-5.1); Sodium 141 mmol/L (135-145)
--- NOTE | 2022-12-12 06:53 | HO.POSTANES ---
Post Anesthesia Evaluation Post Anesthesia Evaluation Date of Service: 12/12/22 Vital Signs: Vital Signs Temp Pulse Resp BP Pulse Ox O2 Del Method 12/12/22 04:00 97.2 F 60 19 164/58 H 96 Room Air 12/11/22 23:38 97.5 F 66 18 162/64 H 96 Room Air 12/11/22 19:56 97.1 F 70 20 138/54 L 97 Room Air Anesthesia: General Endotracheal-GETA Mental Status: Awake Pain Control: Satisfactory Nausea/Vomiting: None Hydration: Adequate Anesthesia-Related Issues: No Anes. Related Issues
[2022-12-12 07:15] VITALS: BP 143/87; PULSE 71; RESP 18; TEMP 36.2; O2SAT 98
[2022-12-12] MEDS: Potassium Chloride Packet 20 MEQ PACKET 40 MEQ PO (07:39)
--- NOTE | 2022-12-12 08:22 | P.PNGS_ITS ---
Subjective Subjective Date of Service: 12/12/22 Interval history: Feels well this morning. Denies significant abdominal pain. Has only had IV tylenol. Has not been OOB yet. Passing flatus and tolerating clear liquids. Feels hungry. Physical Exam 2 Vital Signs: Vital Signs: Last Vital Signs Temp 97.2 F 12/12/22 07:15 Pulse 71 12/12/22 07:15 Resp 18 12/12/22 07:15 BP 143/87 H 12/12/22 07:15 Pulse Ox 98 12/12/22 07:15 O2 Del Method Room Air 12/12/22 07:15 O2 Flow Rate 2 12/11/22 15:55 BMI result Body Mass Index 29.2 Const: General: comfortable, no acute distress and alert O rientation/consciousness: patient oriented x3 Resp: Effort & Inspection: normal respiratory effort GI: Inspection: No distended and Yes incision (dressing c/d/i) Palpation (GI): Soft to palpation, Tenderness to palpation present (GI) (mild incisional), no guarding and not rigid Percussion: Yes normal to percussion Skin: General skin exam: no rashes or lesions noted Neuro: General: patient oriented x3 Extrem: General: Yes no clubbing, cyanosis or edema Objective Data Active Medications Heparin Sodium (Porcine) (Heparin Sodium,Porcine 5,000 Unit/Ml Vial) 5,000 unit SUBCUT Q12H [facility] Hydromorphone HCl (Hydromorphone Hcl 0.5 Mg/0.5 Ml Syringe) 0.25 mg IVPUSH Q5M PRN; Protocol PRN Reason: Pain, Severe (Pain Scale 7-10) Acetaminophen (Ofirmev) 1,000 mg in 100 mls @ 400 mls/hr IV Q6H [facility] Last Infusion: 12/12/22 04:55 Dose: Infused Documented By: JOSE ALFREDO Lactated Ringer's (Lr) 1,000 mls @ 80 mls/hr IVCONT .[id number] [facility] Last Admin: 12/12/22 01:12 Dose: 80 mls/hr Documented By: JOSE ALFREDO Melatonin (Melatonin 3 Mg Tablet) 6 mg PO BEDTIME PRN PRN Reason: Insomnia Morphine Sulfate (Morphine Sulfate 2 Mg/Ml Cartridge) 3 mg IVPUSH Q4H PRN; Protocol PRN Reason: Pain, Severe (Pain Scale 7-10) Omeprazole (Omeprazole 20 Mg Capsule.Dr) 20 mg PO BID@0630,1630 [facility] Last Admin: 12/12/22 05:53 Dose: 20 mg Documented By: JOSE ALFREDO Ondansetron HCl (Ondansetron Hcl 4 Mg/2 Ml Vial) 4 mg IVPUSH Q8H PRN PRN Reason: Nausea and Vomiting Oxycodone HCl (Oxycodone Hcl Immed Release 5 Mg Tablet) 5 mg PO Q4H PRN PRN Reason: Pain, Moderate(Pain Scale 4-6) Oxycodone HCl (Oxycodone Hcl Immed Release 5 Mg Tablet) 10 mg PO Q4H PRN PRN Reason: Pain, Severe (Pain Scale 7-10) Sodium Chloride (0.9 % Sodium Chloride Flush 3 Ml Syringe) 3 ml IVFLUSH QSHIFT [facility] Last Admin: 12/12/22 07:39 Dose: Not Given Documented By: KIT Non-Admin Reason: IV Running Labs 12/12/22 05:52 12/12/22 05:52 Labs: Laboratory Results - last 24 hr 12/11/22 12/12/22 09:25 05:52 MCV 75.8 L 74.9 L MCH 23.7 L 23.8 L MCHC 31.3 31.8 RDW Not Reportable TNP Plt Count 334 297 MPV 8.7 L 8.9 L Immature Gran % (Auto) 0.4 Neut % (Auto) 85.3 H Lymph % (Auto) 8.0 L [place] % (Auto) 6.2 Eos % (Auto) 0.0 Baso % (Auto) 0.1 Lymph # (Auto) 1.0 L [place] # (Auto) 0.8 Eos # (Auto) 0.0 Baso # (Auto) 0.0 Abs Immat Gran (auto) 0.05 H Absolute Neuts (auto) 10.4 H Absolute Nucleated RBC 0.000 0.000 Nucleated RBC % (auto) 0.0 0.0 Anion Gap 12 Estim Creat Clear Calc 62.1 Estimated GFR > 60 Random Glucose 136 H Calcium 8.9 Blood Type B Negative Antibody Screen NEGATIVE Procedures Date of Service Date of Service: 12/12/22 Progress Note: A&P Assessment and plan (1) S/P right hemicolectomy: Status: Acute (2) Cancer of right colon: Status: Acute Plan 77 year old female with nearly obstructing ascending colon CA now POD #1 s/p exploratory laparotomy, ileal right colectomy/appendectomy with anastomosis of distal ileum to proximal transverse colon. Doing well post op. Tolerating clear liquids with some evidence of GI function. VSS. Abd benign with appropriate post op tenderness. Will advance to low residue diet. Encouraged OOB/ambulation and IS use. Dc morocho. Continue pain control. Await BM. AM labs reviewed. Time Spent With Patient Time: Total time managing care of this patient today ____ minutes. Quality Stroke Does the patient have a stroke diagnosis?: No VTE Prior VTE?: No VTE Risk Level:: Surgical - high VTE Device Contraindication: N/A - Device Ordered VTE Drug Contraindication: N/A - Med Ordered
[2022-12-12 11:09] VITALS: BP 168/66; PULSE 67; RESP 18; TEMP 36.1; O2SAT 97
[2022-12-12 11:28] VITALS: BMI 29.2
--- NOTE | 2022-12-12 15:13 | MHC.CM.PN ---
CM MET WITH PT AND AT BEDSIDE PT LIVES WITH HER AND IS INDEPENDENT WITH CARE PT DENIES USE OF DME OR HOME SERVICES PT DOES NOT HAVE A HCP AND DECLINES TO COMPLETE ONE PCP: GILMER SEBASTIAN IMM DELIVERED DCP: HOME NO SERVICES VIA FAMILY TRANSPORT
[2022-12-12 15:54] VITALS: BP 180/74; PULSE 68; RESP 20; TEMP 36.1; O2SAT 94
[2022-12-12] MEDS: 0.9 % Sodium Chloride Flush 3 ML SYRINGE IVFLUSH (17:21)
[2022-12-12 20:02] VITALS: BP 124/60; PULSE 69; RESP 20; TEMP 36.6; O2SAT 97
[2022-12-12 23:58] VITALS: BP 179/74; PULSE 71; RESP 18; TEMP 36.3; O2SAT 94
[2022-12-13] MEDS: Heparin Sodium,Porcine 5,000 UNIT/ML VIAL 5000 UNIT SUBCUT ×3 (00:08→22:48)
[2022-12-13] MEDS: Lactated Ringers 1,000 ML 80 ML IVCONT (02:04)
[2022-12-13 03:26] VITALS: BP 171/74; PULSE 67; RESP 18; TEMP 36.6; O2SAT 93
[2022-12-13 04:13] VITALS: BP 197/83
[2022-12-13] MEDS: Acetaminophen 1,000 MG/100 ML PIGGYBACK 400 MG IV ×4 (04:21→22:43)
[2022-12-13] MEDS: Omeprazole 20 MG CAPSULE.DR PO ×2 (05:49→16:22)
[2022-12-13 08:00] VITALS: BP 150/63; PULSE 73; RESP 18; TEMP 36.1; O2SAT 95
[2022-12-13] MEDS: 0.9 % Sodium Chloride Flush 3 ML SYRINGE IVFLUSH ×3 (09:24→19:41)
--- NOTE | 2022-12-13 14:48 | P.PNGS_ITS ---
Subjective Subjective Date of Service: 12/13/22 Interval history: Patient is doing relatively well. She is tolerating her diet. She is having some bowel movement with some old blood tinge in it. Patient has been doing her incentive spirometry. She has minimal incisional discomfort. H&H yesterday 12/25.3 Physical Exam 2 Vital Signs: Vital Signs: Last Vital Signs Temp 97.0 F 12/13/22 08:00 Pulse 73 12/13/22 08:00 Resp 18 12/13/22 08:00 BP 150/63 H 12/13/22 08:00 Pulse Ox 95 12/13/22 08:00 O2 Del Method Room Air 12/13/22 08:00 O2 Flow Rate 2 12/11/22 15:55 BMI result Body Mass Index 29.2 GI: Other: Abdomen soft. Wound clean dry and intact healing uneventfully. Objective Data Active Medications Heparin Sodium (Porcine) (Heparin Sodium,Porcine 5,000 Unit/Ml Vial) 5,000 unit SUBCUT Q12H [facility] Last Admin: 12/13/22 10:24 Dose: 5,000 unit Documented By: ZACH Hydromorphone HCl (Hydromorphone Hcl 0.5 Mg/0.5 Ml Syringe) 0.25 mg IVPUSH Q5M PRN; Protocol PRN Reason: Pain, Severe (Pain Scale 7-10) Acetaminophen (Ofirmev) 1,000 mg in 100 mls @ 400 mls/hr IV Q6H [facility] Last Infusion: 12/13/22 10:50 Dose: Infused Documented By: ZACH Melatonin (Melatonin 3 Mg Tablet) 6 mg PO BEDTIME PRN PRN Reason: Insomnia Morphine Sulfate (Morphine Sulfate 2 Mg/Ml Cartridge) 3 mg IVPUSH Q4H PRN; Protocol PRN Reason: Pain, Severe (Pain Scale 7-10) Omeprazole (Omeprazole 20 Mg Capsule.) 20 mg PO BID@0630,1630 [facility] Last Admin: 12/13/22 05:49 Dose: 20 mg Documented By: TANIA Ondansetron HCl (Ondansetron Hcl 4 Mg/2 Ml Vial) 4 mg IVPUSH Q8H PRN PRN Reason: Nausea and Vomiting Oxycodone HCl (Oxycodone Hcl Immed Release 5 Mg Tablet) 5 mg PO Q4H PRN PRN Reason: Pain, Moderate(Pain Scale 4-6) Oxycodone HCl (Oxycodone Hcl Immed Release 5 Mg Tablet) 10 mg PO Q4H PRN PRN Reason: Pain, Severe (Pain Scale 7-10) Sodium Chloride (0.9 % Sodium Chloride Flush 3 Ml Syringe) 3 ml IVFLUSH QSHIFT [facility] Last Admin: 12/13/22 09:24 Dose: 3 ml Documented By: ZACH Labs 12/12/22 05:52 12/12/22 05:52 Procedures Date of Service Date of Service: 12/13/22 Progress Note: A&P Assessment and plan (1) Cancer of right colon: Status: Acute (2) S/P right hemicolectomy: Status: Acute Plan Current plan is to Hep-Lock IV, advanced diet, incentive spirometry, ambulate, ice pack. If all goes well, tentative discharge day possibly tomorrow. H&H in a.m. Time Spent With Patient Time: Total time managing care of this patient today ____ minutes. Quality Stroke Does the patient have a stroke diagnosis?: No VTE Prior VTE?: No VTE Risk Level:: Surgical - high VTE Device Contraindication: N/A - Device Ordered VTE Drug Contraindication: N/A - Med Ordered
[2022-12-13 15:57] VITALS: BP 150/64; PULSE 74; RESP 18; TEMP 36.3; O2SAT 97
[2022-12-13 20:00] VITALS: BP 142/62; PULSE 78; RESP 20; TEMP 36; O2SAT 96
[2022-12-14] VITALS: BP 142/62; PULSE 72; RESP 18; TEMP 36.2; O2SAT 95
[2022-12-14 04:00] VITALS: BP 136/64; PULSE 75; RESP 18; TEMP 36.9; O2SAT 96
[2022-12-14] MEDS: Acetaminophen 1,000 MG/100 ML PIGGYBACK 400 MG IV ×2 (04:40→11:18)
[2022-12-14] MEDS: Omeprazole 20 MG CAPSULE.DR PO (05:35)
[2022-12-14 06:13] LABS: Hematocrit 28.4 % (37.0-47.0); Hemoglobin 8.7 g/dl (12.0-16.0)
[2022-12-14 08:13] VITALS: BP 160/62; PULSE 76; RESP 20; TEMP 36.2; O2SAT 97
[2022-12-14] MEDS: 0.9 % Sodium Chloride Flush 3 ML SYRINGE IVFLUSH (08:55)
[2022-12-14] MEDS: Heparin Sodium,Porcine 5,000 UNIT/ML VIAL 5000 UNIT SUBCUT (11:23)
--- NOTE | 2022-12-14 14:16 | P.PNGS_ITS ---
Subjective Subjective Date of Service: 12/14/22 Interval history: Patient is doing well. She is tolerating a diet. She had small bowel movement and flatus. She is ambulating with minimal assistance. She wishes to be discharged home. Patient's son and were present during evaluation. Physical Exam 2 Vital Signs: Vital Signs: Last Vital Signs Temp 97.2 F 12/14/22 08:13 Pulse 76 12/14/22 08:13 Resp 20 12/14/22 08:13 BP 160/62 H 12/14/22 08:13 Pulse Ox 97 12/14/22 08:13 O2 Del Method Room Air 12/14/22 08:13 O2 Flow Rate 2 12/11/22 15:55 BMI result Body Mass Index 29.2 GI: Other: Abdomen soft. Wound clean dry and intact healing uneventfully. Objective Data Active Medications Heparin Sodium (Porcine) (Heparin Sodium,Porcine 5,000 Unit/Ml Vial) 5,000 unit SUBCUT Q12H [facility] Last Admin: 12/14/22 11:23 Dose: 5,000 unit Documented By: ZACH Hydromorphone HCl (Hydromorphone Hcl 0.5 Mg/0.5 Ml Syringe) 0.25 mg IVPUSH Q5M PRN; Protocol PRN Reason: Pain, Severe (Pain Scale 7-10) Acetaminophen (Ofirmev) 1,000 mg in 100 mls @ 400 mls/hr IV Q6H [facility] Last Infusion: 12/14/22 12:05 Dose: Infused Documented By: ZACH Melatonin (Melatonin 3 Mg Tablet) 6 mg PO BEDTIME PRN PRN Reason: Insomnia Morphine Sulfate (Morphine Sulfate 2 Mg/Ml Cartridge) 3 mg IVPUSH Q4H PRN; Protocol PRN Reason: Pain, Severe (Pain Scale 7-10) Omeprazole (Omeprazole 20 Mg Capsule.) 20 mg PO BID@0630,1630 [facility] Last Admin: 12/14/22 05:35 Dose: 20 mg Documented By: TANIA Ondansetron HCl (Ondansetron Hcl 4 Mg/2 Ml Vial) 4 mg IVPUSH Q8H PRN PRN Reason: Nausea and Vomiting Oxycodone HCl (Oxycodone Hcl Immed Release 5 Mg Tablet) 5 mg PO Q4H PRN PRN Reason: Pain, Moderate(Pain Scale 4-6) Oxycodone HCl (Oxycodone Hcl Immed Release 5 Mg Tablet) 10 mg PO Q4H PRN PRN Reason: Pain, Severe (Pain Scale 7-10) Sodium Chloride (0.9 % Sodium Chloride Flush 3 Ml Syringe) 3 ml IVFLUSH QSHIFT [facility] Last Admin: 12/14/22 08:55 Dose: 3 ml Documented By: ZACH Labs 12/14/22 05:25 12/12/22 05:52 Procedures Date of Service Date of Service: 12/14/22 Progress Note: A&P Assessment and plan (1) Cancer of right colon: Status: Acute (2) S/P right hemicolectomy: Status: Acute Plan Current plan is discharge patient home. See discharge instructions for specifics. Patient and family member questions were all answered. Time Spent With Patient Time: Total time managing care of this patient today ____ minutes. Quality Stroke Does the patient have a stroke diagnosis?: No VTE Prior VTE?: No VTE Risk Level:: Surgical - high VTE Device Contraindication: N/A - Device Ordered VTE Drug Contraindication: N/A - Med Ordered
--- NOTE | 2022-12-14 16:02 | MHC.CM.PN ---
PT WILL DC HOME TODAY WITH NO SERVICES VIA FAMILY TRANSPORT
--- NOTE | 2022-12-15 09:39 | PM.DS ---
DS: Providers Provider Date of Service: 12/11/22 Date of admission: 12/11/22 11:13 Date of discharge: 12/14/22 Primary care physician: Everardo Blair MD Admitting clinician: Hayes Valles DS: Diagnosis Discharge Diagnosis (1) Cancer of right colon: Start date: 12/11/22 Status: Acute (2) S/P right hemicolectomy: Status: Acute DS: Summary Hospital Course Hospital Course: Patient is a 77-year-old female who presents here for elective resection of a mid ascending colon cancer. Patient underwent bowel prep day prior had uneventful surgery on 12/11. For specifics of intraoperative findings, please refer to operative note. Patient's postoperative course has been exemplary. She has been afebrile stable vital signs. She has advanced to regular diet. She has passed bases stool. Abdomen soft benign. Wound clean dry and intact. Patient is ambulating independently. Current plan is discharge patient home and to see me in approximately 1 weeks time or p.r.n. Final pathology still pending. For specifics of discharge instructions, please refer to discharge work sheet. Status at Discharge Cognitive/behavioral status at discharge: Stable Time Spent with Patient Time attestation: Total time managing care of this patient today ____ minutes. Discharge coordination time: Greater than 30 minutes Quality: Safe Use of Opioids Does Pt have an Active Cancer Diagnosis on the Problem List?: Yes Opioid Measure Date for [facility] Report: 11/15/22 Opioid Measure Time for [facility] Report: 09:40 Quality: Stroke Does the patient have a stroke diagnosis?: No Physical Exam Vital Signs: Vital Signs: Last Vital Signs Temp 97.2 F 12/14/22 08:13 Pulse 76 12/14/22 08:13 Resp 20 12/14/22 08:13 BP 160/62 H 12/14/22 08:13 Pulse Ox 97 12/14/22 08:13 O2 Del Method Room Air 12/14/22 08:13 O2 Flow Rate 2 12/11/22 15:55 BMI result Body Mass Index 29.2 GI: Other: Abdomen soft. Wound clean dry and intact healing uneventfully. DS: Data Data Completed and Pending Completed studies during hospitalization [Text1]: Procedures Excision of Ascending Colon, Via Natural or Artificial Opening Endoscopic, Diagnostic (11/25/22) Excision of Duodenum, Via Natural or Artificial Opening Endoscopic, Diagnostic (11/25/22) Excision of Esophagogastric Junction, Via Natural or Artificial Opening Endoscopic, Diagnostic (11/25/22) Excision of Stomach, Pylorus, Via Natural or Artificial Opening Endoscopic, Diagnostic (11/25/22) Transfusion of Nonautologous Red Blood Cells into Peripheral Vein, Percutaneous Approach (11/25/22) Pending studies at discharge: Pending at discharge 12/11/22 10:50 Surgical [PTH] Routine Discharge Plan Discharge Anticipated Discharge Date/Time: 12/14/22 15:24 Patient Disposition: Home, Self-Care Discharge Diagnosis: Right colon cancer Referrals: Everardo Blair MD [Primary Care Provider] - 1 Week Discharge Medications: New hydrocodone-acetaminophen 5-325 mg tablet 1 tab PO Q4-6H PRN (Reason: pain) Qty: 30 0RF Rx Instructions: Partial Fill upon patient request. Continued pantoprazole 40 mg tablet,delayed release (DR/EC) 40 mg PO BID 30 Days Qty: 60 0RF Discharge Orders: Discharge Order (Routine); Ordered 12/14/22 Ordered By: Hayes Valles Diet: Advance to usual diet Activity on Discharge: No heavy lifting Stand Alone Forms: Patient Portal Discharge page Activity Restrictions/Additional Instructions: Ice to wound 20 minutes several times today and tomorrow. May shower in 2 days. Remove outside dressing only. Leave Steri-Strips intact. No strenuous activities Care Plan Goals: Return to baseline Health Concerns: No Plan of Treatment: Convalescence Assessment: Stable Discharge Date/Time: 12/14/22 15:45
== END 2022-12-14 15:45 | disposition home or self-care (01) | DRG 331 ==
LOC: HO.SSSA 11:30 → HO.S3 11:45
PROVIDERS: Nurse Practitioner; Physician Assistant Surgical; Admitting Provider Surgery; PCP Internal Medicine; Visit Provider Surgery
PROC: 0DTF0ZZ Resection of Right Large Intestine, Open Approach (ICD-10-PCS; CPT 49000; principal; 2022-12-11 10:20)
DX: C18.2 Malignant neoplasm of ascending colon (principal); K21.9 Gastro-esophageal reflux disease without esophagitis; Z79.899 Other long term (current) drug therapy
CPT/HCPCS: 36415; 80048; 85014; 85018; 85025; 85027; 86850; 86900; 86901; 88307; 88309; C1758; J0131; J1100; J1643; J1885; J2405; J3010

== ENCOUNTER → 2022-12-11 11:13 | Outpatient (BNV) | payer MEDICARE, SELFPAY | PROVIDERS: Admitting Provider Surgery; PCP Internal Medicine; Visit Provider Surgery | DX: C18.2 Malignant neoplasm of ascending colon (principal); Z90.49 Acquired absence of other specified parts of digestive tract | CPT/HCPCS: 44140; 99024 ==

== ENCOUNTER 2022-12-18 13:22 | Outpatient (AMB) | payer MEDICARE, SELFPAY ==
--- NOTE | 2022-12-16 16:09 | A.OFFVIS_ITS ---
Intake Intake Visit Reasons: follow up from walk in per dr Michael Allergies No Known Allergies Allergy (Verified 12/19/22 11:44) Medication List - Last Reconciled 12/18/22 by Everardo Blair MD pantoprazole 40 mg PO BID 30 days PFSH Medical History GERD (gastroesophageal reflux disease) History of recent blood transfusion Anemia Mass of colon Surgical History History of exploratory laparotomy (12/11/22) History of surgery Hx of tonsillectomy History of esophagogastroduodenoscopy (EGD) H/O colonoscopy Family History Other Mental health disorder Substance use disorder Social History Household Members: Spouse Housing: Condominium Are you a primary anesthesiologist and critical care to a significant other at home: Yes (states has Parkinson's, is pretty good but she cares for him as wel) Do you presently have visiting nurse or other home services: No Alcohol intake: current Alcohol intake frequency: does not drink Alcohol type: wine Patient Tobacco Use Status: Never used Tobacco e-Cigarette/Vaping Use: Never Used Second Hand Smoke Exposure: No service: No Current occupational status: retired Cognitive needs: No Hearing needs: No Vision needs: Yes (glasses) Community Navigation Community Navigation TCM visit TCM discharge location/reason HO.S3/Right colon CA TCM discharge date 12/14/22 TCM Interactive Contact Date 12/16/22 TCM medications reconciled Yes TCM discharge follow-up appointment scheduled Yes TCM follow-up appointment date 12/18/22 Patient received discharge instructions Yes All patient questions answered Yes Teach back Yes TCM details Pt. doing well, meds as ordered, reconciled, discharge documents noted, no questions, no fevers or bleeding has f/u tcm apt on 12/18/22. Questionnaires Thrive Questionnaire Date Thrive assessed: 12/12/22 Assessment & Plan Assessment & Plan Orders: Referrals Hematology & Oncology Referral C18.2 - Malignant neoplasm of ascending colon Coding Level of Care Code Procedure Only
--- NOTE | 2022-12-18 13:15 | A.OFFPC_ITS ---
Intake Visit Reasons: follow up from walk in per dr Michael Intake Note: Patient is here to follow up on walk in, two hospital stay. Senior Quality Control Inspector Required: No Etl Lead: Present Accompanied by: Daughter Allergies No Known Allergies Allergy (Verified 12/19/22 15:22) Medication List - Last Reconciled 12/19/22 by Everardo Blair MD pantoprazole 40 mg PO BID 30 days Tobacco use date assessed: 12/18/22 Fall risk assessment: No Falls in past year Last assessed Fall Risk: 12/18/22 Dental Screening Dental Screen Date: 12/18/22 Did you have a dental visit in the last 12 months?: Yes Did you have a dental problem in the last 6 months where you did not have access to dental care?: No Was dental information given to patient?: Patient has dentist HPI follow up from walk in per dr Michael HPI Details 77-year-old female wishes to discuss her medical health via tele health. The patient is at home and her daughter is involved in the conversation. She was seen in the walk-in a few weeks back with fatigue and tiredness. Physical exam showed her to be pale and anemic. Blood work done showed a hemoglobin of 6 and she was referred to the emergency room for blood transfusion and workup of anemia. Patient received an urgent endoscopy and a colonoscopy, and colon cancer was discovered. Patient underwent a colectomy and her mass was removed. A PET scan was done and she is awaiting an oncology consult. Patient is healing well at home and slowly able to return to her daily activities. She has regular bowel movements. She does not report much pain. Her appetite is normal. [facility] Medical History GERD (gastroesophageal reflux disease) History of recent blood transfusion Anemia Mass of colon Surgical History History of exploratory laparotomy (12/11/22) History of surgery Hx of tonsillectomy History of esophagogastroduodenoscopy (EGD) H/O colonoscopy Family History Other Mental health disorder Substance use disorder Social History Household Members: Spouse Housing: Condominium Are you a primary care management associate to a significant other at home: Yes (states has Parkinson's, is pretty good but she cares for him as wel) Do you presently have visiting nurse or other home services: No Alcohol intake: current Alcohol intake frequency: does not drink Alcohol type: wine Patient Tobacco Use Status: Never used Tobacco e-Cigarette/Vaping Use: Never Used Second Hand Smoke Exposure: No service: No Current occupational status: retired Cognitive needs: No Hearing needs: No Vision needs: Yes (glasses) Questionnaire Thrive Questionnaire Date Thrive assessed: 12/12/22 Physical exam (Primary Care) Tobacco/Smoking Status: Tobacco use Status Tobacco use date assessed 12/18/22 12/18/22 13:20 Patient Tobacco Use Status Never used Tobacco 12/18/22 13:20 e-Cigarette/Vaping Use Never Used 12/18/22 13:20 Thrive Assessment: Date of Thrive Assessment Date Thrive assessed 12/12/22 12/18/22 13:20 Telehealth Telehealth Location of provider rendering services: practice address Location of patient: address on file Patient Identification confirmed using: Name, : Yes Telehealth method: voice only Patient verbally consented to treatment: Yes Patient verbally consented to billing insurance company: Yes Patient informed of any privacy concerns related to visit: Yes Minutes spent on Phone/Video with Pt.: 20 Results Reviewed Results Reviewed: ER and hospital reports. Assessment and Plan Assessment & Plan (1) Cancer of right colon: Code(s): C18.2 - Malignant neoplasm of ascending colon Plan: 15 minutes was spent reviewing her medical chart before starting the tele visit. A oncology consult was made. Incidentally patient also has H pylori gastritis. The decision to treat will be made after the plan on her colon cancer has been set up by the oncologist. Daughter and patient were okay with the idea. Orders: Referrals 2 Hematology & Oncology Referral C18.2 - Malignant neoplasm of ascending colon Coding Level of Care Code Est Pt Level 4 (89965) Diagnoses Cancer of right colon C18.2
== END 2022-12-18 14:38 | disposition home or self-care (01) ==
LOC: HO.HMGH 13:22
PROVIDERS: PCP Internal Medicine; Visit Provider Internal Medicine
DX: C18.2 Malignant neoplasm of ascending colon (principal)
CPT/HCPCS: 99443

== ENCOUNTER 2022-12-19 11:35 | Outpatient (AMB) | payer MEDICARE, SELFPAY ==
[2022-12-19 11:43] VITALS: BP 186/76; PULSE 95
--- NOTE | 2022-12-19 11:43 | A.OFFVIS_ITS ---
Intake Vital Signs 12/19/22 11:43 Weight 170 lb BP 186/76 H Blood Pressure Location Lt brachial Position Sitting Pulse 95 Intake Visit Reasons: s/p Rt colon resection Intake Note: Patient here s/p colon resection. Reports incisions healing well. Denies bleeding, pain, itch. Taking tylenol prn. Dinkey Operator Slag Required: No Accompanied by: daughter, Allergies No Known Allergies Allergy (Verified 12/19/22 11:44) HPI HPI Comments History of Present Illness Details Patient presents with her and daughter for follow-up. She is doing well. She is starting a diet. He is having regular bowel habits. She is increasing her activity level. She has minimal incisional discomfort. Pathology results were extensively reviewed. Patient's internal medicine doctor has already scheduled the patient for oncology follow-up. COUNTS INCLUDE 234 BEDS AT THE [facility] Medical History GERD (gastroesophageal reflux disease) History of recent blood transfusion Anemia Mass of colon Surgical History History of exploratory laparotomy (12/11/22) History of surgery Hx of tonsillectomy History of esophagogastroduodenoscopy (EGD) H/O colonoscopy Family History Other Mental health disorder Substance use disorder Social History Household Members: [facility] Are you a primary home health care worker to a significant other at home: Yes (states has Parkinson's, is pretty good but she cares for him as wel) Do you presently have visiting nurse or other home services: No Alcohol intake: current Alcohol intake frequency: does not drink Alcohol type: wine Patient Tobacco Use Status: Never used Tobacco e-Cigarette/Vaping Use: Never Used Second Hand Smoke Exposure: No service: No Current occupational status: retired Cognitive needs: No Hearing needs: No Vision needs: Yes (glasses) Physical Exam Vital Signs: Last Vital Signs Pulse 95 12/19/22 11:43 BP 186/76 H 12/19/22 11:43 GI Other: Abdomen soft. Incision clean dry and intact. Assessment & Plan Assessment & Plan (1) Cancer of right colon: Code(s): C18.2 - Malignant neoplasm of ascending colon (2) S/P right hemicolectomy: Code(s): Z90.49 - Acquired absence of other specified parts of digestive tract Plan Patient family have been given very specific local instructions. No stress a ctivities. Ambulate as tolerated. No driving. Patient will see me in approximately 3 weeks time or p.r.n.. Coding Level of Care Code Global (79272) Diagnoses Cancer of right colon C18.2 S/P right hemicolectomy Z90.49
== END 2022-12-19 13:42 | disposition home or self-care (01) ==
PROVIDERS: PCP Internal Medicine; Visit Provider Surgery
DX: C18.2 Malignant neoplasm of ascending colon (principal); Z90.49 Acquired absence of other specified parts of digestive tract
CPT/HCPCS: 99024

== ENCOUNTER → 2022-12-19 11:35 | Outpatient (BNVA) | payer MEDICARE, SELFPAY | PROVIDERS: PCP Internal Medicine; Visit Provider Surgery ==

== ENCOUNTER → 2022-12-23 07:58 | Outpatient (BNV) | payer MEDICARE, SELFPAY | PROVIDERS: PCP Internal Medicine; Visit Provider Internal Medicine Medical Oncology | DX: C18.2 Malignant neoplasm of ascending colon (principal) | CPT/HCPCS: 99204; 99213; 99214 ==

== ENCOUNTER → 2023-01-12 11:17 | Outpatient (BNVA) | payer MEDICARE, SELFPAY | PROVIDERS: PCP Internal Medicine; Visit Provider Surgery ==

== ENCOUNTER 2023-01-12 11:18 | Outpatient (AMB) | payer MEDICARE, SELFPAY ==
[2023-01-12 11:23] VITALS: BP 194/79; PULSE 104; BMI 29.3
--- NOTE | 2023-01-12 11:23 | MHC.OFFVIS ---
Intake Vital Signs 01/12/23 11:23 Height 5 ft 4 in Weight 171 lb BMI 29.3 BP 194/79 H Blood Pressure Location Lt brachial Position Sitting Pulse 104 H Intake Visit Reasons: 3 week post op Intake Note: Patient here for 3wk p/o Rt colon. Reports healing well. Denies pain. Special Ed Assistant Required: No Accompanied by: Spouse Allergies No Known Allergies Allergy (Verified 01/12/23 11:24) HPI HPI Comments History of Present Illness Details Patient presents for follow-up with her daughter and . She is doing quite well. She has time diet has had no bowel habits. She has increased her activity level. She wishes to drive. No wound issues or complaints per [facility] Medical History H pylori ulcer GERD (gastroesophageal reflux disease) History of recent blood transfusion Anemia Mass of colon Surgical History History of exploratory laparotomy (12/11/22) History of surgery Hx of tonsillectomy History of esophagogastroduodenoscopy (EGD) H/O colonoscopy Family History Other Mental health disorder Substance use disorder Social History Household Members: [facility] Are you a primary veterinarian laboratory animal care to a significant other at home: Yes (states has Parkinson's, is pretty good but she cares for him as wel) Do you presently have visiting nurse or other home services: No Alcohol intake: current Alcohol intake frequency: does not drink Alcohol type: wine Patient Tobacco Use Status: Never used Tobacco e-Cigarette/Vaping Use: Never Used Second Hand Smoke Exposure: No service: No Current occupational status: retired Cognitive needs: No Hearing needs: No Vision needs: Yes (glasses) Physical Exam Vital Signs: Last Vital Signs Pulse 104 H 01/12/23 11:23 BP 194/79 H 01/12/23 11:23 BMI result Body Mass Index 29.3 GI Other: Abdomen soft incision clean dry and intact well healed. Assessment & Plan Assessment & Plan (1) S/P right hemicolectomy: Code(s): Z90.49 - Acquired absence of other specified parts of digestive tract (2) Cancer of right colon: Code(s): C18.2 - Malignant neoplasm of ascending colon Plan From a surgical perspective, patient has done quite well. She has been seen by oncology. Patient is tentatively de 4-6 months of adjuvant chemotherapy. From My perspective, patient is doing well and will follow-up p.r.n.. Coding Level of Care Code Global (80230) Diagnoses S/P right hemicolectomy Z90.49 Cancer of right colon C18.2
== END 2023-01-12 11:39 | disposition home or self-care (01) ==
PROVIDERS: PCP Internal Medicine; Visit Provider Surgery
DX: Z90.49 Acquired absence of other specified parts of digestive tract (principal); C18.2 Malignant neoplasm of ascending colon
CPT/HCPCS: 99024

== ENCOUNTER 2023-02-10 12:08 | Outpatient (REF) | payer MEDICARE, SELFPAY ==
[2023-02-10 12:49] LABS: OBS1 NEGATIVE (NEGATIVE)
[2023-02-10 12:50] LABS: OBS Int Ctl Valid YES
[2023-02-10 13:15] LABS: CDiff Gene PCR NEGATIVE (Negative)
[2023-02-10 13:30] LABS: Leukocytes Stool Qualitative NEGATIVE (NEGATIVE)
== END 2023-02-10 12:09 | disposition home or self-care (01) ==
LOC: HO.LNP 12:08
PROVIDERS: Visit Provider Internal Medicine Medical Oncology
DX: R19.7 Diarrhea, unspecified (principal)
CPT/HCPCS: 82272; 87493; 89055

== ENCOUNTER 2023-02-26 09:46 | Outpatient (REF) | payer MEDICARE, SELFPAY ==
[2023-02-28 15:08] LABS: H Pylori Breath Test Negative (Negative)
== END 2023-02-26 09:47 | disposition home or self-care (01) ==
LOC: HO.LNP 09:46
PROVIDERS: PCP Internal Medicine; Visit Provider Internal Medicine Gastroenterology
DX: Z11.2 Encounter for screening for other bacterial diseases (principal)
CPT/HCPCS: 83013; 99211

== ENCOUNTER 2023-04-15 12:57 | Outpatient (REF) | payer MEDICARE, SELFPAY ==
--- NOTE | ~2023-04-15 | CT_ITS ---
EXAMINATION: CT CHEST, ABDOMEN AND PELVIS WITH CONTRAST CLINICAL INFORMATION: History of colon cancer. Elevated CEA level. COMPARISON: 11/27/2022 TECHNIQUE: Multidetector volumetric imaging was performed of the chest, abdomen and pelvis following administration of 85 mL Omnipaque 350 intravenous contrast. Oral contrast was administered. Sagittal and coronal reformatted images were obtained on the technologist's workstation. This CT examination was performed using dose optimization techniques as appropriate, variously including the following: *Automated exposure control *Adjustment of mA and/or kV according to patient size (this includes techniques or standardized protocols for targeted exams where dose is matched to indication/reason for exam; i.e. extremities or head) *Use of iterative reconstruction technique DLP: 428 mGy-cm FINDINGS: CHEST: LUNGS: Biapical scarring. No suspicious pulmonary nodule. No focal consolidation. Central airways are patent. PLEURA: No pleural effusion. MEDIASTINUM: No bulky axillary, hilar or mediastinal lymphadenopathy. Great vessels are of normal caliber. Heart size is normal. No pericardial effusion. CORONARY ARTERY CALCIFICATION: Mild. CHEST WALL/AXILLA: No acute abnormality. ABDOMEN AND PELVIS: ABDOMINAL AND PELVIC WALL: Unremarkable. LIVER AND BILIARY TREE: The liver is normal in size and contour. No suspicious hepatic lesion. No biliary ductal dilatation. GALLBLADDER: Unremarkable. PANCREAS: No ductal dilatation. Normal contour. No peripancreatic stranding. SPLEEN: Not enlarged. ADRENAL GLANDS: No adrenal mass. KIDNEYS AND URETERS: The kidneys are symmetric in size and enhancement. No hydronephrosis or perinephric fluid collection. GASTROINTESTINAL TRACT: Small hiatal hernia. Status post right hemicolectomy with surgical anastomosis in the right mid abdomen. There is nodularity and stranding within the mesentery adjacent to the surgical anastomosis on image 38 of series 3 and on image 40 of series 6. There are several prominent mesenteric lymph nodes in the right upper quadrant. VASCULAR: Normal caliber abdominal aorta. LYMPH NODES: No bulky abdominal or pelvic lymphadenopathy. FREE FLUID: No free fluid. BLADDER: Underdistended but otherwise unremarkable. PELVIC VISCERA: Unremarkable. OSSEOUS STRUCTURES: No destructive bone lesions. Degenerative disc disease at L5-S1. CT/CT abdomen pelvis w IV con IMPRESSION: Status post right hemicolectomy. Nodularity and stranding within the mesentery adjacent to the surgical anastomosis with several prominent mesenteric lymph nodes. Close imaging surveillance is advised. PET/CT may be considered.
[2023-04-15] MEDS: iohexoL 350 MG/ML 75 ML INFUS..BTL 85 ML IV (13:55)
== END 2023-04-15 12:58 | disposition home or self-care (01) ==
LOC: HO.CT 12:57
PROVIDERS: PCP Internal Medicine; Visit Provider Internal Medicine Medical Oncology
DX: C18.2 Malignant neoplasm of ascending colon (principal); K76.9 Liver disease, unspecified
CPT/HCPCS: 71260; 74177; Q9967

== ENCOUNTER 2023-04-23 07:41 | Outpatient (REF) | payer MEDICARE, SELFPAY ==
[2023-04-24 07:57] LABS: OBS Int Ctl Valid YES; OBS1 POSITIVE (NEGATIVE); OBS2 POSITIVE (NEGATIVE); OBS3 POSITIVE (NEGATIVE)
== END 2023-04-23 07:42 | disposition home or self-care (01) ==
LOC: HO.LNP 07:41
PROVIDERS: Visit Provider Internal Medicine Medical Oncology
DX: D64.9 Anemia, unspecified (principal)
CPT/HCPCS: 82270

== ENCOUNTER 2023-04-28 13:02 | Outpatient (REF) | payer MEDICARE, SELFPAY ==
--- NOTE | ~2023-04-28 | PE_ITS ---
EXAMINATION: Fluorine-18 FDG PET/CT Scan CLINICAL INDICATION: Subsequent treatment management. History of colon cancer and rising CEA level. PROCEDURE: 72 minutes following the intravenous administration of 14.93 mCi of fluorine 18 FDG, images from the base of the skull to the mid thighs were obtained using a combined PET/CT scanner with CT scan based attenuation correction. No intravenous contrast was administered. Transverse, coronal, sagittal, and volume reconstruction projections were obtained. The patient's blood glucose as determined by a finger stick, was 110 mg/dl immediately prior to injection. The radiotracer was injected intravenously through left hand superficial vein, without any complications. Total CT exam dose-length product 743.74 mGy-cm * These CT images were obtained using dose optimization techniques as appropriate, variously including the following: Automated exposure control * Adjustment of mA and/or kV according to patient size (this includes techniques or standardized protocols for targeted exams where dose is matched to indication/reason for exam; i.e. extremities or head) * Use of iterative reconstruction technique COMPARISON: CT scan of the chest abdomen and pelvis done on 04/15/2023 and available baseline PET CT scan done on 12/09/2022. FINDINGS: SUV max REFERENCE: Blood: 2.8 (current). 3.9 (baseline). Liver: 3.2 (current). 3.8 (baseline). HEAD AND NECK: No abnormal radiotracer uptake. No large intracranial hemorrhage, acute territorial infarct or significant shift of midline structures. CHEST: Ports and Devices: None Lungs: No abnormal radiotracer uptake. Pleura: No significant pleural effusion. Lymph Nodes: No tracer-avid mediastinal, hilar or internal mammary or axillary lymphadenopathy. Mediastinum: There is no significant pericardial effusion/thickening. Breasts/Chest Wall: No abnormal radiotracer uptake. ABDOMEN/PELVIS: Liver/Biliary System: No focal tracer-avid liver lesion. The gallbladder appears unremarkable. Pancreas: Normal. Spleen: No abnormal radiotracer uptake. No evidence of splenomegaly. Adrenal Glands: No abnormal radiotracer uptake. Kidneys: No hydronephrosis, hydroureter or renal calculi bilaterally. Bowel: Eccentric soft tissue thickening associated with mild tracer avidity is noted at the surgical anastomosis site at right mid abdomen with SUV max of 9.9 (116/267). Differential includes postsurgical change versus residual and/or recurrent disease. Direct visualization/colonoscopy as appropriate may be considered for further differentiation. Postsurgical changes of interval resection of the ascending colon. There are no tracer avid mediastinal lymphadenopathy. Lymph Nodes: No tracer avid retroperitoneal, mesenteric or pelvic and/or groin lymphadenopathy. Pelvic Organs: The urinary bladder is underdistended. MUSCULOSKELETAL: No suspicious tracer avid disease. VASCULAR: Calcific atherosclerotic disease of the aorta including coronary artery calcifications. No evidence of aneurysm. THE SITE OF MOST INTENSE FDG AVIDITY AND SUVmax: Anastomotic site with SUV max of 9.9. PET/PET CT fusion skull to thigh IMPRESSION: 1. The site of surgical resection/anastomotic site shows eccentric soft tissue mural thickening associated with focal increased tracer avidity with SUV max of 9.9. Differential include postsurgical changes versus residual and/or recurrent disease. Follow-up direct visualization/colonoscopy as appropriate may be considered for further differentiation. 2. No evidence of tracer avid lymphadenopathy or metastatic disease within or outside of the abdomen and pelvis.
== END 2023-04-28 13:03 | disposition home or self-care (01) ==
LOC: HO.PET 13:02
PROVIDERS: PCP Internal Medicine; Visit Provider Internal Medicine Medical Oncology
DX: Z13.89 Encounter for screening for other disorder (principal)

== ENCOUNTER 2023-05-07 11:11 | Outpatient (REF) | payer MEDICARE, SELFPAY | END 2023-05-07 11:12 | disposition home or self-care (01) | LOC: HO.MDS 11:11 | PROVIDERS: Visit Provider Internal Medicine Medical Oncology | DX: D50.9 Iron deficiency anemia, unspecified (principal) | CPT/HCPCS: 96365; J1756 ==

== ENCOUNTER 2023-05-08 11:46 | Outpatient (AMB) | payer MEDICARE, SELFPAY ==
--- NOTE | 2023-05-08 11:57 | MHC.OFFVIS ---
Intake Vital Signs 05/08/23 12:00 Height 5 ft 4 in Weight 170 lb BMI 29.2 BP 144/68 H Blood Pressure Location Lt brachial Position Sitting Pulse 76 Intake Visit Reasons: Per pt request/ PET SCan Intake Note: Patient follow up for PET/SCan results Patient cc: diarrhea and denies any other GI issues. Batch Operator Required: No Accompanied by: Family/Other Allergies No Known Allergies Allergy (Verified 05/08/23 11:53) HPI Per pt request/ PET SCan HPI Details 77 yr old f here for f/u She had anemia and in patient EGD, colo 11/19 dx with h pylori and CRC right colon, had right hemicolectomy--invasive ca with signet ring features she had opted to hold on chemo recent PET with thickening anastomosis, CEA been going up, still anemia, she has noted rectal bleeding and bad diarrhea no abdominal pain no nausea or vomiting EXAM: GENERAL: The patient is well developed and nontoxic. VITAL SIGNS:see workflow HEENT: Nonicteric sclerae, PERRLA, EOMI. Oropharynx clear. Moist mucous membranes. Conjunctivae appear well perfused. No thyroid mass. CHEST: Chest wall is nontender. HEART: Regular rate and rhythm without murmurs. LUNGS: Clear to auscultation bilaterally. ABDOMEN: Soft, positive bowel sounds, nontender, no organomegaly.no flank tenderness SKIN: No rash, no excessive bruising, petechiae, or purpura. NEUROLOGIC: Cranial nerves II-XII intact without motor/sensory deficit. psych: nml A/P: 1 diarrhea- prob 2/2 BAM 2/abn imaging likely scar tissue but concern with the rising CEA--plus pt never had chemo PLAN: 1/ EGD and colo, miralax and gatorade prep 2/ trial of colestipol [facility] Medical History H pylori ulcer GERD (gastroesophageal reflux disease) History of recent blood transfusion Anemia Mass of colon Surgical History History of exploratory laparotomy (12/11/22) History of surgery Hx of tonsillectomy History of esophagogastroduodenoscopy (EGD) H/O colonoscopy Family History Other Mental health disorder Substance use disorder Social History Household Members: Spouse Housing: Condominium Are you a primary acute care nursing assistant to a significant other at home: Yes (states has Parkinson's, is pretty good but she cares for him as wel) Do you presently have visiting nurse or other home services: No Alcohol intake: current Alcohol intake frequency: does not drink Alcohol type: wine Patient Tobacco Use Status: Never used Tobacco e-Cigarette/Vaping Use: Never Used Second Hand Smoke Exposure: No service: No Current occupational status: retired Cognitive needs: No Hearing needs: No Vision needs: Yes (glasses) Physical Exam Vital Signs: Last Vital Signs Pulse 76 05/08/23 12:00 BP 144/68 H 05/08/23 12:00 BMI result Body Mass Index 29.2 Assessment & Plan Assessment & Plan (1) Cancer of right colon: Code(s): C18.2 - Malignant neoplasm of ascending colon Plan: A/P: 1 diarrhea- prob 2/2 BAM 2/abn imaging likely scar tissue but concern with the rising CEA--plus pt never had chemo PLAN: 1/ EGD and colo, miralax and gatorade prep 2/ trial of colestipol Medications: New sodium,potassium,mag sulfates 17.5-3.13-1.6 gram (Suprep Bowel Prep Kit) DILUTE; drink 1/2 at 6-8 pm and half at 11 PM- 1AM 354 mL 0RF polyethylene glycol 3350 (Miralax) mix the full container with 64 ounces of gatorade for colonoscopy prep the evening before the test and drink 238 grams PO ONCE 238 grams 0RF colesevelam 1,250 mg (2 x 625 mg) PO BID 90 tabs 0RF Coding Level of Care Code Est Pt Level 4 (59620) Diagnoses Cancer of right colon C18.2
[2023-05-08 12:00] VITALS: BP 144/68; PULSE 76; BMI 29.2
== END 2023-05-08 12:40 | disposition home or self-care (01) ==
PROVIDERS: PCP Internal Medicine; Visit Provider Internal Medicine Gastroenterology
DX: C18.2 Malignant neoplasm of ascending colon (principal)
CPT/HCPCS: 99214

== ENCOUNTER → 2023-05-08 11:46 | Outpatient (BNVA) | payer MEDICARE, SELFPAY | PROVIDERS: PCP Internal Medicine; Visit Provider Internal Medicine Gastroenterology | DX: C18.2 Malignant neoplasm of ascending colon (principal) | CPT/HCPCS: 99212 ==

== ENCOUNTER 2023-05-12 09:24 | Day surgery (SDC) | payer MEDICARE, SELFPAY ==
--- NOTE | 2023-05-11 12:31 | HO.ANESPROP2 ---
Documented by User: Keerthi Nuñez NP 05/11/23 12:32 HPI - Anesthesia Eval Consult details Narrative: 77yo F for Upper Endoscopy and Colonoscopy s/p colo resect 11/2022 with GA-ETT 7 PMFSH Active Problems Active Problems: All Active Problems (Updated 12/23/22 @ 09:07 by Shilo Ochoa MD) Cancer of right colon (Acute) S/P right hemicolectomy (Acute) Mass of colon (Acute) Anemia (Acute) Fatigue (Acute) Past Medical History Medical History H pylori ulcer GERD (gastroesophageal reflux disease) History of recent blood transfusion Anemia Mass of colon Family History Family History Other Mental health disorder Substance use disorder Family history of problems with anesthesia: No Surgical History Surgical History History of exploratory laparotomy (12/11/22) History of surgery Hx of tonsillectomy History of esophagogastroduodenoscopy (EGD) H/O colonoscopy History of Problems with Anesthesia: No Social History Social History (Updated 05/12/23 @ 11:28 by Lanette Green MD) Household Members: Spouse Housing: Condominium Are you a primary health care law specialist to a significant other at home: Yes (states has Parkinson's,is pretty good but she cares for him as well) Do you presently have visiting nurse or other home services: No Alcohol intake: current Alcohol intake frequency: does not drink Alcohol type: wine Patient Tobacco Use Status: Never used Tobacco e-Cigarette/Vaping Use: Never Used Second Hand Smoke Exposure: No Use of substances other than those prescribed or required for medical reasons: No Are you DNR?: No Advance Directives: No Advance Directives Information Provided: Yes service: No Current occupational status: retired Cognitive needs: No Hearing needs: No Vision needs: Yes (glasses) Meds Allergies Allergy/AdvReac Type Severity Reaction Status Date / Time No Known Allergies Allergy Verified 05/12/23 10:31 Exam Pertinent Lab Results Pertinent Lab Results: Laboratory Tests 04/21/23 15:10 WBC 7.9 Hgb 9.6 L Hct 31.4 L Plt Count 330 Sodium 141 Potassium 3.9 Chloride 108 Carbon Dioxide 25 BUN 14 Creatinine 0.97 Narrative Narrative: EKG 10/2022 Vent. Rate : 093 BPM Atrial Rate : 093 BPM P-R Int : 148 ms QRS Dur : 072 ms QT Int : 358 ms P-R-T Axes : 039 -05 042 degrees QTc Int : 445 ms Normal sinus rhythm Nonspecific ST abnormality Abnormal ECG No previous ECGs available Assessment and Plan Assessment Anesthesia Assessment: Chart Reviewed Final Anesthetic Review Family History of Problems with Anesthesia: No History of Problems with Anesthesia: No Documented by User: Lanette Green MD 05/12/23 11:36 PMFSH Active Problems Active Problems: All Active Problems (Updated 05/12/23 @ 11:24 by Lanette Green MD) Cancer of right colon (Acute) S/P right hemicolectomy (Acute) Mass of colon (Acute) Anemia (Acute) Fatigue (Acute) Past Medical History Medical History H pylori ulcer GERD (gastroesophageal reflux disease) History of recent blood transfusion Anemia Mass of colon Family History Family History Other Mental health disorder Substance use disorder Family history of problems with anesthesia: No Surgical History Surgical History History of exploratory laparotomy (12/11/22) History of surgery Hx of tonsillectomy History of esophagogastroduodenoscopy (EGD) H/O colonoscopy History of Problems with Anesthesia: No Social History Social History (Updated 05/12/23 @ 11:28 by Lanette Green MD) Household Members: Spouse Housing: Condominium Are you a primary health care law specialist to a significant other at home: Yes (states has Parkinson's,is pretty good but she cares for him as well) Do you presently have visiting nurse or other home services: No Alcohol intake: current Alcohol intake frequency: does not drink Alcohol type: wine Patient Tobacco Use Status: Never used Tobacco e-Cigarette/Vaping Use: Never Used Second Hand Smoke Exposure: No Use of substances other than those prescribed or required for medical reasons: No Are you DNR?: No Advance Directives: No Advance Directives Information Provided: Yes service: No Current occupational status: retired Cognitive needs: No Hearing needs: No Vision needs: Yes (glasses) Meds Allergies Allergy/AdvReac Type Severity Reaction Status Date / Time No Known Allergies Allergy Verified 05/12/23 10:31 Exam Height,Weight and Vital Signs: Height 5 ft 4 in Weight 76.294 kg Vital Signs Temp Pulse Resp BP Pulse Ox O2 Del Method 05/12/23 10:35 97.9 F 84 15 156/57 H 98 Room Air Airway Mallampati Class: II TM Dist: >3cm Assessment and Plan Final Anesthetic Review Family History of Problems with Anesthesia: No History of Problems with Anesthesia: No
[2023-05-12 10:32] VITALS: BMI 28.9
[2023-05-12 10:35] VITALS: BP 156/57; PULSE 84; RESP 15; TEMP 36.6; O2SAT 98
[2023-05-12] MEDS: Lactated Ringers 1,000 ML 100 ML IVCONT (10:49)
--- NOTE | 2023-05-12 10:58 | MHC.SHP ---
Pre-Procedural Eval Section A - 24 Hr Update-Section A only Date of Service: 05/12/23 The patient is an INPATIENT: No The patient has been examined within 24 hours of the surgical procedure. The History & Physical has been completed within 30 days and I have reviewed it.: Yes Section B - Complete if H&P > 30 days Chief Complaint: Malignant neoplasm of colon,abnormal findings Allergies: Allergies Allergy/AdvReac Type Severity Reaction Status Date / Time No Known Allergies Allergy Verified 05/12/23 10:31 Plan Diagnosis/Plan: Unchanged I have reviewed the history and physical and performed a pertinent physical examination on my patient. No changes have occurred unless specified. Time Spent With Patient Time: Total time managing care of this patient today ____ minutes.
--- NOTE | 2023-05-12 11:54 | W.PM.OPN ---
Operative Note Operative Note Date of Service: 05/12/23 Narrative: Operative Information Procedure Description: EGD, Colonoscopy Indication: anemia and hx of colon cancer Anesthesia: MAC FLEXIBLE TRANSORAL UPPER GASTROINTESTINAL ENDOSCOPY AND COLONOSCOPY PROCEDURE NOTE UPPER ENDOSCOPY Consent: Indications for the procedure and potential complications of bleeding, perforation, reaction to medications and missed diagnosis were discussed with the patient and informed consent was obtained. Instrument: Olympus GIF H 190 J mid size upper endoscope Monitoring: Vital signs and clinical assessment, continuous EKG monitoring, Pulse oximetry, Carbon Dioxide monitoring and blood pressure monitoring were done throughout the procedure. Procedure: The patient was placed in the left lateral decubitis position and pre-procedure medications were administered and a bite block was placed. The endoscope was inserted into the mouth and advanced under direct vision to the third part of duodenum. A careful inspection was made as the upper endoscope was withdrawn including a retroflexed examination of the proximal stomach; Findings and interventions are described below. Findings: Larynx:normal Esophagus: GE junction at 33 cm, diaphragm hiatus at 37 cm, consistent with 4 cm fixed hiatal hernia, mild esophagitis Stomach: Patchy gastric erythema with few antral erosions. Biopsies were obtained. Grade 2 flap valve on retroflexed examination of the cardia. Duodenum: Normal bulb and descending duodenum, Intervention: Biopsies as noted above, COLONOSCOPY Instrument: Olympus variable stiffness pediatric scope 190L Colonoscopy Monitoring: Vital signs and clinical assessment, continuous EKG monitoring, Pulse oximetry, Carbon Dioxide monitoring and blood pressure monitoring were done throughout the procedure. Colon withdrawal time was 8 minutes. Procedure: The patient was placed in the left lateral decubitis position and pre-procedure medications were administered. After a digital rectal examination of the ano-rectum, the video colonoscope was inserted into the rectum and advanced through the colon to the ileocolonic anastomosis. The colonoscope was slowly withdrawn in a retrograde panoramic fashion and the colon mucosa was carefully examined including a retroflexed view of the rectum. Findings and interventions are described below. Procedure Difficulty:easy Findings: ileocolonic anastomosis: hard, irregular tissue noted around the anastomosis, bx taken Transverse Colon -normal Descending Colon:normal Sigmoid Colon: normal Rectum: Retroflexion with small internal hemorrhoids, grade I Anorectum - normal Colon preparation: [place] Bowel Preparation Scale Right colon; 2 Transverse colon: 3 Left colon; 3 (0 = Unprepared colon segment with mucosa not seen due to solid stool that cannot be cleared. 1 = Portion of mucosa of the colon segment seen, but other areas of the colon segment not well seen due to staining, residual stool and/or opaque liquid. 2 = Minor amount of residual staining, small fragments of stool and/or opaque liquid, but mucosa of colon segment seen well. 3 = Entire mucosa of colon segment seen well with no residual staining, small fragments of stool or opaque liquid) Impression and Post Procedure Diagnosis: Endoscopy Findings: erosive gastritis hiatal hernia mild esophagitis Colonoscopy Findings: colon mass internal hemorrhoids Plan: Await Pathology results Re refer back to oncology low fiber diet Above findings were reviewed with the patient and relevant handouts were provided if indicated.
[2023-05-12 12:40] VITALS: BP 105/42; PULSE 77; RESP 16; TEMP 36.1; O2SAT 97
[2023-05-12 12:55] VITALS: BP 125/58; PULSE 81; RESP 16; O2SAT 97
[2023-05-12 13:10] VITALS: BP 147/64; PULSE 83; RESP 16; TEMP 36.1; O2SAT 99
== END 2023-05-12 13:27 | disposition home or self-care (01) ==
PROVIDERS: PCP Internal Medicine; Visit Provider Internal Medicine Gastroenterology
PROC: (CPT 43239; principal; 2023-05-12 13:10)
DX: K25.9 Gastric ulcer, unspecified as acute or chronic, without hemorrhage or perforation (principal); K20.80 Other esophagitis without bleeding; K44.9 Diaphragmatic hernia without obstruction or gangrene; C18.9 Malignant neoplasm of colon, unspecified; K63.89 Other specified diseases of intestine; K64.0 First degree hemorrhoids; Z98.0 Intestinal bypass and anastomosis status
CPT/HCPCS: 43239; 45380; 88305; 88313; 88341; 88342; J1596; J2704

== ENCOUNTER → 2023-05-12 09:24 | Outpatient (BNV) | payer MEDICARE, SELFPAY | PROVIDERS: PCP Internal Medicine; Visit Provider Internal Medicine Gastroenterology | DX: C18.9 Malignant neoplasm of colon, unspecified (principal); Z98.0 Intestinal bypass and anastomosis status; K64.8 Other hemorrhoids; D64.9 Anemia, unspecified; K20.90 Esophagitis, unspecified without bleeding; K29.70 Gastritis, unspecified, without bleeding | CPT/HCPCS: 43239; 45380 ==

== ENCOUNTER 2023-05-19 08:32 | Outpatient (AMB) | payer MEDICARE, SELFPAY ==
--- NOTE | 2023-05-19 08:40 | MHC.OFFVIS ---
Intake Vital Signs 05/19/23 08:44 Weight 173 lb BP 176/68 H Blood Pressure Location Rt brachial Position Sitting Pulse 102 H Intake Visit Reasons: colon CA recurrence , discuss surgery Intake Note: Patient referred back by Dr. Ochoa for recurrent colon CA. Recent PET scan on 04-28-23. Patient denies pain, discomfort, diarrhea. Speech Language Pathology Assistant Required: No Accompanied by: daughter Ashley Allergies No Known Allergies Allergy (Verified 05/19/23 08:45) HPI HPI Comments History of Present Illness Details Patient presents with her daughter. Patient has a local anastomotic recurrence status post bowel resection approximately 6 months ago. She has had extensive metastatic workup which is only positive for the local recurrence picked up on colonoscopy. No evidence of any regional or other distant disease. The meantime, patient has been tolerating a diet, having regular bowel habits. Increasing her activity level to baseline. Patient is very well known to me. Chart was reviewed and patient evaluated [facility] Medical History H pylori ulcer GERD (gastroesophageal reflux disease) History of recent blood transfusion Anemia Mass of colon Surgical History History of exploratory laparotomy (12/11/22) History of surgery Hx of tonsillectomy History of esophagogastroduodenoscopy (EGD) H/O colonoscopy Family History Other Mental health disorder Substance use disorder Social History Household Members: Spouse Housing: Condominium Are you a primary career placement services counselor to a significant other at home: Yes (states has Parkinson's,is pretty good but she cares for him as well) Do you presently have visiting nurse or other home services: No Alcohol intake: current Alcohol intake frequency: does not drink Alcohol type: wine Patient Tobacco Use Status: Never used Tobacco e-Cigarette/Vaping Use: Never Used Second Hand Smoke Exposure: No service: No Current occupational status: retired Cognitive needs: No Hearing needs: No Vision needs: Yes (glasses) Physical Exam Vital Signs: Last Vital Signs Pulse 102 H 05/19/23 08:44 BP 176/68 H 05/19/23 08:44 Chest Other: Chest breath sounds bilaterally, HS 1 in 2 GI Other: Abdomen is soft. Midline scar well healed. Benign abdomen. 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 All questions answered. She will require a bowel prep day prior. The arrangements were made for this. 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
[2023-05-19 08:44] VITALS: BP 176/68; PULSE 102
== END 2023-05-19 08:58 | disposition home or self-care (01) ==
PROVIDERS: PCP Internal Medicine; Visit Provider Surgery
DX: D49.0 Neoplasm of unspecified behavior of digestive system (principal); Z98.0 Intestinal bypass and anastomosis status
CPT/HCPCS: 99214

== ENCOUNTER 2023-05-19 09:20 | Outpatient (REF) | payer MEDICARE, SELFPAY | END 2023-05-19 09:21 | disposition home or self-care (01) | LOC: HO.MDS 09:20 | PROVIDERS: Visit Provider Internal Medicine Medical Oncology | DX: D50.9 Iron deficiency anemia, unspecified (principal); Z98.0 Intestinal bypass and anastomosis status | CPT/HCPCS: 96365; 99212; J1756 ==

== ENCOUNTER 2023-06-02 12:18 | Outpatient (REF) | payer MEDICARE, SELFPAY ==
[2023-06-02 12:25] VITALS: BP 153/53; PULSE 79; RESP 18; TEMP 36.4
[2023-06-02] MEDS: Iron Sucrose Complex 200 MG in 0.9 % Sodium Chloride 100 ML 440 MG IV (12:38)
== END 2023-06-02 12:19 | disposition home or self-care (01) ==
LOC: HO.MDS 12:18
PROVIDERS: Visit Provider Internal Medicine Medical Oncology
DX: D50.9 Iron deficiency anemia, unspecified (principal)
CPT/HCPCS: 96365; J1756

== ENCOUNTER 2023-06-10 12:31 | Outpatient (REF) | payer MEDICARE, SELFPAY | END 2023-06-10 12:32 | disposition home or self-care (01) | LOC: HO.MDS 12:31 | PROVIDERS: Visit Provider Internal Medicine Medical Oncology | DX: Z13.89 Encounter for screening for other disorder (principal) | CPT/HCPCS: J1756 ==

== ENCOUNTER → 2023-06-12 09:00 | Outpatient (BNV) | payer MEDICARE, SELFPAY | PROVIDERS: Admitting Provider Surgery; PCP Internal Medicine; Visit Provider Surgery | DX: D49.0 Neoplasm of unspecified behavior of digestive system (principal); Z98.0 Intestinal bypass and anastomosis status; Z90.49 Acquired absence of other specified parts of digestive tract; C18.2 Malignant neoplasm of ascending colon | CPT/HCPCS: 44140; 99024 ==

== ENCOUNTER 2023-06-12 11:33 | Inpatient (IN) | payer MEDICARE, SELFPAY ==
[2023-06-09 09:28] VITALS: BMI 29.5
--- NOTE | 2023-06-11 13:32 | MHC.SHP ---
Pre-Procedural Eval Section A - 24 Hr Update-Section A only Date of Service: 06/11/23 The patient is an INPATIENT: Yes Changes since office visit: No Cold of Flu in the past 2 weeks, No New Medical Problems, No Changes in Medication and No Patient answered all questions Section B - Complete if H&P > 30 days Chief Complaint: Intestinal bypass and anastomosis status,neoplasm Allergies: Allergies Allergy/AdvReac Type Severity Reaction Status Date / Time No Known Allergies Allergy Verified 05/19/23 08:45 Plan I have reviewed the history and physical and performed a pertinent physical examination on my patient. No changes have occurred unless specified. Time Spent With Patient Time: Total time managing care of this patient today ____ minutes.
[2023-06-12] VITALS (22 sets, daily range): BP systolic 145–175; BP diastolic 49–80; PULSE 59–77; RESP 12–18; TEMP 36.2–36.9; O2SAT 93–98; BMI 29.7
--- NOTE | 2023-06-12 07:50 | PC.NURSE ---
called vincent in blood bank to change blood bank band to todays account. patients has it on her right wrist.
[2023-06-12] MEDS: Lactated Ringers 1,000 ML 80 ML IVCONT (08:14)
--- NOTE | 2023-06-12 08:16 | P.CONAN_ITS ---
HPI - Anesthesia Eval Consult details Narrative: 77 yo F presenting for ex-lap and bowel resection. 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 (Acute) Cancer of right colon (Acute) S/P right hemicolectomy (Acute) Mass of colon (Acute) Anemia (Acute) Fatigue (Acute) Past Medical History Medical History (Updated 06/08/23 @ 15:51 by Casie Deluna RN) H pylori ulcer GERD (gastroesophageal reflux disease) History of recent blood transfusion Anemia Mass of colon Family History Family History Other Mental health disorder Substance use disorder Family history of problems with anesthesia: No Surgical History Surgical History (Updated 06/11/23 @ 10:41 by Shilo Ochoa MD) History of exploratory laparotomy (12/11/22) History of surgery Hx of tonsillectomy History of esophagogastroduodenoscopy (EGD) H/O colonoscopy History of Problems with Anesthesia: No Social History Social History Household Members: Spouse Housing: Condominium Are you a primary customer care coordinator to a significant other at home: Yes (-has Parkinson's-helps him with his care) Do you presently have visiting nurse or other home services: No Alcohol intake: current Alcohol intake frequency: does not drink Alcohol type: wine Patient Tobacco Use Status: Never used Tobacco e-Cigarette/Vaping Use: Never Used Second Hand Smoke Exposure: No Use of substances other than those prescribed or required for medical reasons: No Do you feel safe in your current relationship?: Yes Advance Directives Date on File: 12/23/22 Do you have thoughts of harming others: None Do you have a plan to hurt others: No Plan Patient : No service: No Current occupational status: retired Cognitive needs: No Hearing needs: No Vision needs: Yes (glasses) Meds Allergies Allergy/AdvReac Type Severity Reaction Status Date / Time No Known Allergies Allergy Verified 05/19/23 08:45 Exam Exam Date and Time: June 12, 2023 0815 Height,Weight and Vital Signs: Height 5 ft 4 in Weight 78.018 kg Last Vital Signs Temp 97.6 F 06/12/23 07:58 Pulse 77 06/12/23 07:58 Resp 16 06/12/23 07:58 BP 161/52 H 06/12/23 07:58 Pulse Ox 97 06/12/23 07:58 O2 Del Method Room Air 06/12/23 07:58 Pertinent Lab Results Pertinent Lab Results: Laboratory Tests 06/10/23 11:58 Blood Type B Negative Antibody Screen NEGATIVE Crossmatch See Detail Airway Mallampati Class: III TM Dist: <=3cm Neck ROM: Full Loose/Missing/Broken Teeth: Yes (broken tooth right upper jaw) Heart: S1S2 Lungs: CTAB Assessment and Plan Assessment Anesthesia Assessment: Anesthesia Plan Discussed and Chart Reviewed Final Anesthetic Review Family History of Problems with Anesthesia: No History of Problems with Anesthesia: No NPO: Yes ASA Class: II Final Preanesthetic Review: No Changes in Pt Med Stat, Meds/Allgs Chart Reviewed, Consent Obtained/Reviewed and Anes Risks/Benef Reviewed Patient Risk: Low Procedure Risk: Low Anesthetic Plan Anesthetic Plan: GA, Regional Block (possible bilateral TAP block) and Agree w/ Assess. and Plan Disposition: Standard PACU
[2023-06-12] MEDS: HYDROmorphone HCl 0.5 MG/0.5 ML SYRINGE 0.25 MG IVPUSH ×4 (10:47→11:43)
--- NOTE | 2023-06-12 11:03 | P.OP_ITS ---
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 She presented with an anastomotic recurrence. Workup including CT scan and PET scan demonstrated no evidence of any other regional or distant disease. Intraoperatively, isolated anastomotic recurrence demonstrated. No gross evidence of regional lymphadenopathy or liver lesions visualized or palpated. Moderate adhesions secondary to the patient's prior surgery of omentum and small bowel in the upper abdomen, necessitating enterolysis to gain entry into the abdominal cavity. Findings: [] Patient brought to the operating room, placed on operative table in supine position, after an adequate level of general anesthesia was induced, the patient's abdomen was prepped and draped in usual sterile fashion. Using a periumbilical midline incision using the prior scar from the patient's previous surgery, this carried down through skin, subcutaneous tissue, down to linea alba were marked cicatrization and scarring was encountered. Peritoneal cavity was entered sharply and moderate adhesions of omentum and small bowel were taken down bluntly and sharply to gain entry into the abdominal cavity. Once this was performed abdominal cavity was explored with findings as noted above. The ileo- proximal transverse anastomosis was identified, mobilized, and brought onto the field. Omentum was partially amputated and partially taken down to gain access anastomosis using ligature device. Once adequately mobilized, MONTEZ staplers were used to transect the bowel at the desired locations of transverse colon and distal ileum using MONTEZ 60 staplers. Mesentery was sequentially taken down using double firing of ligature device and the specimen was opened and evaluated and subsequently sent to pathology. Grossly clear margins were demonstrated several cm beyond the anastomosis. Functional end-to-end anastomosis using distal ileum and distal transverse colon was accomplished using MONTEZ 60 and TA 60 staplers. Crotch of the anastomosis was buttressed using seromuscular silk sutures. Mesenteric defect was reapproximated using interrupted 3-0 Vicryl sutures. Abdominal cavity was copiously irrigated, and secured hemostasis. Wound was closed in following manner; mass closure using looped 1. PDS was used to close perineum and fascia. Interrupted inverted dermal 3-0 Vicryl sutures followed by Steri-Strips and sterile dressings were applied. Wound was infiltrated 0.5% Marcaine at completion. Sponge, needle, and instrument counts were reported correct. Patient tolerated the procedure well and emerged from anesthesia stable condition. EBL minimal
--- NOTE | 2023-06-12 12:16 | PHA.MEDREC ---
Pharmacy Consult ? Medication Reconciliation Pharmacy has completed the medication reconciliation. Reviewed med rec done by nursing
[2023-06-12] MEDS: fentaNYL citrate/PF 100 MCG/2 ML VIAL 50 MCG IVPUSH (12:36)
--- NOTE | 2023-06-12 14:22 | MHC.CM.PN ---
per rounds pt may be able to dc today or tomorow
[2023-06-12] MEDS: Acetaminophen 1,000 MG/100 ML PIGGYBACK 400 MG IV ×2 (14:50→20:31)
[2023-06-12] MEDS: Omeprazole 20 MG CAPSULE.DR PO (15:40)
--- NOTE | 2023-06-12 17:59 | PC.NURSE ---
Pt. arrived on the floor from PACU with 3L Oxygen nasal canula on.. Oxygen removed, pt sat at 94% RA.
[2023-06-12] MEDS: Magnesium Hydrox/Alum Hydrox 30 ML ORAL.SUSP PO (22:19)
[2023-06-13 01:08] VITALS: BP 160/76; PULSE 89; RESP 17; TEMP 36.4; O2SAT 94
[2023-06-13] MEDS: Acetaminophen 1,000 MG/100 ML PIGGYBACK 400 MG IV ×4 (02:29→20:41)
[2023-06-13] MEDS: Lactated Ringers 1,000 ML 80 ML IVCONT ×2 (02:33→12:38)
[2023-06-13 03:36] VITALS: BP 140/63; PULSE 62; RESP 18; TEMP 36.3; O2SAT 94
[2023-06-13] MEDS: Omeprazole 20 MG CAPSULE.DR PO ×2 (05:17→16:35)
[2023-06-13 05:23] LABS: MANUAL DIFF FLAG NO
[2023-06-13 05:28] LABS: Basophils Percent Auto 0.1 % (0-2); Hematocrit 29.7 % (37.0-47.0); Hemoglobin 9.6 g/dl (12.0-16.0); Imm Gran Abs Auto 0.04 X10*3/uL (0.00-0.03); Imm Gran Pct Auto 0.3 % (0.0-0.4); Lymphocytes Absolute Auto 0.6 X10*3/uL (1.2-4.9); Lymphocytes Percent Auto 5.5 % (20-40); Mean Corpuscular HGB Conc 32.3 g/dl (31.0-35.0); Mean Corpuscular Hemoglobin 26.4 pg (27.0-33.0); Mean Corpuscular Volume 81.6 fL (80.0-98.0); Mean Platelet Volume 8.9 fL (9.4-12.3); Monocytes Absolute Auto 0.9 X10*3/uL (0.1-1.2); Monocytes Percent Auto 7.5 % (2-11); Neutrophils Percent Auto 86.6 % (45-73); Platelet Count 197 X10*3/uL (160-400); Red Blood Count 3.64 X10*6/uL (4.20-5.50); Red Cell Distribution Width 17.3 % (11.0-16.0); White Blood Count 11.5 X10*3/uL (4.8-10.8)
[2023-06-13 06:19] LABS: Anion Gap 12 (12-20); Blood Urea Nitrogen 10 mg/dL (9-16); Calcium 8.7 mg/dL (8.4-10.2); Carbon Dioxide 22 mmol/L (22-29); Chloride 111 mmol/L (96-108); Creatinine Clr Calc Pharmacy 51.1; Estimated Glomerular Filt Rate 59; Glucose Random 129 mg/dL (60-115); Potassium 3.2 mmol/L (3.3-5.1); Sodium 142 mmol/L (135-145)
[2023-06-13 07:24] VITALS: BP 141/65; PULSE 52; RESP 18; TEMP 36; O2SAT 93
[2023-06-13] MEDS: Heparin Sodium,Porcine 5,000 UNIT/ML VIAL 5000 UNIT SUBCUT ×2 (12:38→23:37)
--- NOTE | 2023-06-13 14:29 | PC.NURSE ---
Archibald catheter removed at 1425. Pt tolerated well. DTV by 2024.
--- NOTE | 2023-06-13 14:31 | MHC.CM.PN ---
PT REPORTS SHE LIVES WITH HER AND IS INDEPENDENT WITH CARE SHE SAYS HER JUST GOT RELEASED FROM [place], AND THEIR DAUGHTER IS STAYING WITH THEM WHILE HE RECOVERS PT USES NO DME AND HAS NO SERVICES AT BASELINE HCP ON FILE PCP: GILMER SEBASTIAN IMM DELIVERED DCP: HOME NO SERVICES VIA FAMILY TRANSPORT
--- NOTE | 2023-06-13 15:13 | HO.POSTANES ---
Post Anesthesia Evaluation Post Anesthesia Evaluation Date of Service: 06/13/23 Vital Signs: Vital Signs Temp Pulse Resp BP Pulse Ox O2 Del Method 06/13/23 07:24 96.8 F 52 18 141/65 H 93 Room Air 06/13/23 03:36 97.4 F 62 18 140/63 H 94 Room Air Anesthesia: General Endotracheal-GETA Mental Status: Awake Pain Control: Satisfactory Nausea/Vomiting: None Hydration: Adequate Anesthesia-Related Issues: No Anes. Related Issues
--- NOTE | 2023-06-13 15:17 | P.PNGS_ITS ---
Subjective Subjective Date of Service: 06/13/23 Interval history: Uneventful evening. Appropriate incisional pain. Ambulating to bathroom with minimal assistance. Tolerating clear liquids. Archibald removed. Physical Exam 2 Vital Signs: Vital Signs: Last Vital Signs Temp 96.8 F 06/13/23 07:24 Pulse 52 06/13/23 07:24 Resp 18 06/13/23 07:24 BP 141/65 H 06/13/23 07:24 Pulse Ox 93 06/13/23 07:24 O2 Del Method Room Air 06/13/23 07:24 O2 Flow Rate 3 06/12/23 15:28 BMI result Body Mass Index 29.7 GI: Other: Abdomen is soft. Incision clean dry and intact Objective Data Active Medications Al Hydroxide/Mg Hydroxide (Magnesium Hydrox/Alum Hydrox 30 Ml Oral.Susp) 30 ml PO Q4H PRN PRN Reason: Heartburn/Nausea Last Admin: 06/12/23 22:19 Dose: 30 ml Documented By: PEDRO Heparin Sodium (Porcine) (Heparin Sodium,Porcine 5,000 Unit/Ml Vial) 5,000 unit SUBCUT Q12H [facility] Last Admin: 06/13/23 12:38 Dose: 5,000 unit Documented By: ALIYAH Lactated Ringer's (Lr) 1,000 mls @ 80 mls/hr IVCONT .[id number] [facility] Last Admin: 06/13/23 12:38 Dose: 80 mls/hr Documented By: ALIYAH Acetaminophen (Ofirmev) 1,000 mg in 100 mls @ 400 mls/hr IV Q6H [facility] Last Infusion: 06/13/23 14:42 Dose: Infused Documented By: ALIYAH Lorazepam (Lorazepam 0.5 Mg Tablet) 0.5 mg PO BEDTIME PRN PRN Reason: Anxiety Melatonin (Melatonin 3 Mg Tablet) 6 mg PO BEDTIME PRN PRN Reason: Insomnia Morphine Sulfate (Morphine Sulfate 2 Mg/Ml Cartridge) 4 mg IVPUSH Q4H PRN; Protocol PRN Reason: Pain, Severe (Pain Scale 7-10) Omeprazole (Omeprazole 20 Mg Capsule.) 20 mg PO BID@0630,1630 [facility] Last Admin: 06/13/23 05:17 Dose: 20 mg Documented By: PEDRO Ondansetron HCl (Ondansetron Hcl 4 Mg/2 Ml Vial) 4 mg IVPUSH Q8H PRN PRN Reason: Nausea and Vomiting Oxycodone HCl (Oxycodone Hcl Immed Release 5 Mg Tablet) 5 mg PO Q4H PRN PRN Reason: Pain, Moderate(Pain Scale 4-6) Sodium Chloride (0.9 % Sodium Chloride Flush 3 Ml Syringe) 3 ml IVFLUSH QSHIFT [facility] Last Admin: 06/13/23 15:12 Dose: Not Given Documented By: ALIYAH Non-Admin Reason: IV Running Labs 06/13/23 05:05 06/13/23 05:05 Labs: Laboratory Results - last 24 hr 06/13/23 05:05 MCV 81.6 MCH 26.4 L MCHC 32.3 RDW 17.3 H Plt Count 197 MPV 8.9 L Immature Gran % (Auto) 0.3 Neut % (Auto) 86.6 H Lymph % (Auto) 5.5 L Cabell % (Auto) 7.5 Eos % (Auto) 0.0 Baso % (Auto) 0.1 Lymph # (Auto) 0.6 L [place] # (Auto) 0.9 Eos # (Auto) 0.0 Baso # (Auto) 0.0 Abs Immat Gran (auto) 0.04 H Absolute Neuts (auto) 10.0 H Absolute Nucleated RBC 0.000 Nucleated RBC % (auto) 0.0 Anion Gap 12 Estim Creat Clear Calc 51.1 Estimated GFR 59 Random Glucose 129 H Calcium 8.7 D Procedures Date of Service Date of Service: 06/13/23 Progress Note: A&P Assessment and plan (1) Status post small bowel resection: Status: Acute Plan Continue current plan; out of bed, incentive spirometry, p.o. liquids as tolerated Time Spent With Patient Time: Total time managing care of this patient today ____ minutes. Quality Stroke Does the patient have a stroke diagnosis?: No VTE Prior VTE?: No VTE Risk Level:: Surgical - low VTE Device Contraindication: N/A - Device Ordered VTE Drug Contraindication: N/A - Med Ordered
[2023-06-13 15:27] VITALS: BP 167/70; PULSE 64; RESP 18; TEMP 36.8; O2SAT 93
[2023-06-13] MEDS: ondansetron HCL 4 MG/2 ML VIAL IVPUSH (19:37)
[2023-06-13 20:00] VITALS: BP 150/61; PULSE 80; RESP 16; TEMP 36.4; O2SAT 91
[2023-06-14] MEDS: Lactated Ringers 1,000 ML 80 ML IVCONT ×2 (00:57→14:27)
[2023-06-14] MEDS: Acetaminophen 1,000 MG/100 ML PIGGYBACK 400 MG IV ×4 (02:23→21:20)
[2023-06-14] MEDS: ondansetron HCL 4 MG/2 ML VIAL IVPUSH (03:23)
[2023-06-14 03:34] VITALS: BP 147/60; PULSE 79; RESP 16; TEMP 36.4; O2SAT 92
[2023-06-14] MEDS: Omeprazole 20 MG CAPSULE.DR PO (06:03)
[2023-06-14 07:48] VITALS: BP 140/60; PULSE 75; RESP 18; TEMP 36.8; O2SAT 92
--- NOTE | 2023-06-14 09:21 | PM.PNGS ---
Subjective Subjective Date of Service: 06/14/23 Interval history: Some nausea and vomiting last night. Feeling a bit better now. Passing flatus and stool which I think is the bowel prep residual. Physical Exam Vital Signs: Vital Signs: Last Vital Signs Temp 98.2 F 06/14/23 07:48 Pulse 75 06/14/23 07:48 Resp 18 06/14/23 07:48 BP 140/60 H 06/14/23 07:48 Pulse Ox 92 06/14/23 07:48 O2 Del Method Room Air 06/14/23 03:34 O2 Flow Rate 3 06/12/23 15:28 BMI result Body Mass Index 29.7 GI: Other: Abdomen is soft. Incision clean dry and intact. Appropriate incisional discomfort. Objective Data Active Medications Al Hydroxide/Mg Hydroxide (Magnesium Hydrox/Alum Hydrox 30 Ml Oral.Susp) 30 ml PO Q4H PRN PRN Reason: Heartburn/Nausea Last Admin: 06/12/23 22:19 Dose: 30 ml Documented By: PEDRO Heparin Sodium (Porcine) (Heparin Sodium,Porcine 5,000 Unit/Ml Vial) 5,000 unit SUBCUT Q12H [facility] Last Admin: 06/13/23 23:37 Dose: 5,000 unit Documented By: PEDRO Acetaminophen (Ofirmev) 1,000 mg in 100 mls @ 400 mls/hr IV Q6H [facility] Last Infusion: 06/14/23 08:48 Dose: Infused Documented By: ALIYAH Lorazepam (Lorazepam 0.5 Mg Tablet) 0.5 mg PO BEDTIME PRN PRN Reason: Anxiety Melatonin (Melatonin 3 Mg Tablet) 6 mg PO BEDTIME PRN PRN Reason: Insomnia Morphine Sulfate (Morphine Sulfate 2 Mg/Ml Cartridge) 4 mg IVPUSH Q4H PRN; Protocol PRN Reason: Pain, Severe (Pain Scale 7-10) Omeprazole (Omeprazole 20 Mg Capsule.) 20 mg PO BID@0630,1630 [facility] Last Admin: 06/14/23 06:03 Dose: 20 mg Documented By: PEDRO Ondansetron HCl (Ondansetron Hcl 4 Mg/2 Ml Vial) 4 mg IVPUSH Q8H PRN PRN Reason: Nausea and Vomiting Last Admin: 06/14/23 03:23 Dose: 4 mg Documented By: PEDRO Oxycodone HCl (Oxycodone Hcl Immed Release 5 Mg Tablet) 5 mg PO Q4H PRN PRN Reason: Pain, Moderate(Pain Scale 4-6) Sodium Chloride (0.9 % Sodium Chloride Flush 3 Ml Syringe) 3 ml IVFLUSH QSHIFT [facility] Last Admin: 06/14/23 07:15 Dose: Not Given Documented By: ALIYAH Non-Admin Reason: IV Running Labs 06/13/23 05:05 06/13/23 05:05 Procedures Date of Service Date of Service: 06/14/23 Progress Note: A&P Assessment and plan (1) Status post small bowel resection: Status: Acute (2) 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 Incentive spirometry, out of bed, sips of PO, follow I's and O's. Time Spent With Patient Time: Total time managing care of this patient today ____ minutes. Quality Stroke Does the patient have a stroke diagnosis?: No VTE Prior VTE?: No VTE Risk Level:: Surgical - low VTE Device Contraindication: N/A - Device Ordered VTE Drug Contraindication: N/A - Med Ordered
[2023-06-14] MEDS: Heparin Sodium,Porcine 5,000 UNIT/ML VIAL 5000 UNIT SUBCUT ×2 (13:01→23:14)
[2023-06-14 15:26] VITALS: BP 150/60; PULSE 69; RESP 15; TEMP 36.8; O2SAT 93
[2023-06-14 19:23] VITALS: BP 168/64; PULSE 73; RESP 16; TEMP 36.2; O2SAT 96
[2023-06-15] MEDS: Lactated Ringers 1,000 ML 80 ML IVCONT (02:14)
[2023-06-15] MEDS: Acetaminophen 1,000 MG/100 ML PIGGYBACK 400 MG IV ×3 (02:15→20:42)
[2023-06-15 03:58] VITALS: BP 150/62; PULSE 72; RESP 18; TEMP 36.7; O2SAT 94
[2023-06-15] MEDS: Omeprazole 20 MG CAPSULE.DR PO ×2 (06:15→16:53)
[2023-06-15 07:24] VITALS: BP 160/70; PULSE 78; RESP 16; TEMP 36.1; O2SAT 94
--- NOTE | 2023-06-15 09:10 | P.PNGS_ITS ---
Subjective Subjective Date of Service: 06/15/23 Interval history: Had no nausea yesterday. Tolerating water and ice chips. Passing liquid stools and more flatus this morning. OOB and ambulating halls. Physical Exam 2 Vital Signs: Vital Signs: Last Vital Signs Temp 97 F 06/15/23 07:24 Pulse 78 06/15/23 07:24 Resp 16 06/15/23 07:24 BP 160/70 H 06/15/23 07:24 Pulse Ox 94 06/15/23 07:24 O2 Del Method Room Air 06/15/23 07:24 O2 Flow Rate 3 06/12/23 15:28 BMI result Body Mass Index 29.7 Const: General: comfortable, no acute distress and alert O rientation/consciousness: patient oriented x3 Resp: Effort & Inspection: normal respiratory effort GI: Inspection: Yes distended (mildly) and Yes incision (clean) Palpation (GI): Soft to palpation, Tenderness to palpation present (GI) (mild incisional), no guarding and not rigid Percussion: Yes tympanic to percussion Skin: General skin exam: no rashes or lesions noted Neuro: General: patient oriented x3 and moves all extremities Objective Data Active Medications Al Hydroxide/Mg Hydroxide (Magnesium Hydrox/Alum Hydrox 30 Ml Oral.Susp) 30 ml PO Q4H PRN PRN Reason: Heartburn/Nausea Last Admin: 06/12/23 22:19 Dose: 30 ml Documented By: PEDRO Heparin Sodium (Porcine) (Heparin Sodium,Porcine 5,000 Unit/Ml Vial) 5,000 unit SUBCUT Q12H [facility] Last Admin: 06/14/23 23:14 Dose: 5,000 unit Documented By: MARCO ANTONIO Acetaminophen (Ofirmev) 1,000 mg in 100 mls @ 400 mls/hr IV Q6H [facility] Last Admin: 06/15/23 09:08 Dose: Not Given Documented By: FATOU Non-Admin Reason: holding per PA Lactated Ringer's (Lr) 1,000 mls @ 80 mls/hr IVCONT .[id number] [facility] Last Admin: 06/15/23 02:14 Dose: 80 mls/hr Documented By: MARCO ANTONIO Lorazepam (Lorazepam 0.5 Mg Tablet) 0.5 mg PO BEDTIME PRN PRN Reason: Anxiety Melatonin (Melatonin 3 Mg Tablet) 6 mg PO BEDTIME PRN PRN Reason: Insomnia Morphine Sulfate (Morphine Sulfate 2 Mg/Ml Cartridge) 4 mg IVPUSH Q4H PRN; Protocol PRN Reason: Pain, Severe (Pain Scale 7-10) Omeprazole (Omeprazole 20 Mg Capsule.) 20 mg PO BID@0630,1630 [facility] Last Admin: 06/15/23 06:15 Dose: 20 mg Documented By: MARCO ANTONIO Ondansetron HCl (Ondansetron Hcl 4 Mg/2 Ml Vial) 4 mg IVPUSH Q8H PRN PRN Reason: Nausea and Vomiting Last Admin: 06/14/23 03:23 Dose: 4 mg Documented By: ODRISShruthi Oxycodone HCl (Oxycodone Hcl Immed Release 5 Mg Tablet) 5 mg PO Q4H PRN PRN Reason: Pain, Moderate(Pain Scale 4-6) Sodium Chloride (0.9 % Sodium Chloride Flush 3 Ml Syringe) 3 ml IVFLUSH QSHIFT [facility] Last Admin: 06/15/23 09:08 Dose: Not Given Documented By: FATOU Non-Admin Reason: IV Running Labs 06/13/23 05:05 06/13/23 05:05 Procedures Date of Service Date of Service: 06/15/23 Progress Note: A&P Assessment and plan (1) Status post small bowel resection: Status: Acute (2) Cancer of right colon: Status: Acute Plan Resolution of nausea, now with good GI function. Will advance to solid diet. Cont OOB/ambulation. Will reassess later today for possible dc to home if tolerating solid diet. Patient has been persistently hypertensive with SBP 140s- 170s with pain relatively well controlled. WIll add PO Norvasc 5mg. If remains high, consult hospitalists. Time Spent With Patient Time: Total time managing care of this patient today ____ minutes. Quality Stroke Does the patient have a stroke diagnosis?: No VTE Prior VTE?: No VTE Risk Level:: Surgical - low VTE Device Contraindication: N/A - Device Ordered VTE Drug Contraindication: N/A - Med Ordered
[2023-06-15 10:55] VITALS: BP 140/52
[2023-06-15] MEDS: Heparin Sodium,Porcine 5,000 UNIT/ML VIAL 5000 UNIT SUBCUT ×2 (10:56→23:26)
[2023-06-15] MEDS: amLODIPine Besylate 5 MG TABLET PO (10:56)
[2023-06-15 12:28] VITALS: BP 140/60
[2023-06-15] MEDS: 0.9 % Sodium Chloride Flush 3 ML SYRINGE IVFLUSH ×2 (14:06→23:28)
--- NOTE | 2023-06-15 14:52 | MHC.CM.PN ---
pt no medically ready for dc at this time
[2023-06-15 16:00] VITALS: BP 158/58; PULSE 72; RESP 18; TEMP 36.8; O2SAT 94
[2023-06-15 19:40] VITALS: BP 164/52; PULSE 76; RESP 16; TEMP 37.1; O2SAT 93
[2023-06-16] MEDS: Acetaminophen 1,000 MG/100 ML PIGGYBACK 400 MG IV (03:09)
[2023-06-16 03:13] VITALS: BP 158/73; PULSE 71; RESP 16; TEMP 37.1; O2SAT 94
[2023-06-16] MEDS: Omeprazole 20 MG CAPSULE.DR PO (05:56)
[2023-06-16 07:33] VITALS: BP 139/61; PULSE 69; RESP 16; TEMP 36.9; O2SAT 93
[2023-06-16] MEDS: amLODIPine Besylate 5 MG TABLET PO (07:58)
[2023-06-16] MEDS: 0.9 % Sodium Chloride Flush 3 ML SYRINGE IVFLUSH (08:02)
--- NOTE | 2023-06-16 10:34 | PM.DS ---
DS: Providers Provider Date of Service: 06/16/23 <Temitope Snyder PA-C - Last Filed: 06/16/23 12:15> Date of admission: 06/12/23 11:33 <Temitope Snyder PA-C - Last Filed: 06/16/23 12:15> Date of discharge: 06/16/23 <Temitope Snyder PA-C - Last Filed: 06/16/23 12:15> Primary care physician: Everardo Blair MD <Temitope Snyder PA-C - Last Filed: 06/16/23 12:15> Attending physician on admission: Hayes Valles <CARINA Morales Last Filed: 06/16/23 12:15> Attending physician on discharge: Hayes Valles <Temitope Snyder PA-C - Last Filed: 06/16/23 12:15> DS: Diagnosis Discharge Diagnosis (1) Status post small bowel resection: Status: Acute <CARINA Morales Last Filed: 06/16/23 12:15> (2) Cancer of right colon: Status: Acute <CARINA Morales Last Filed: 06/16/23 12:15> DS: Summary Hospital Course Hospital Course: HPI AT ADMISSION: Patient presents with her daughter. Patient has a local anastomotic recurrence status post bowel resection approximately 6 months ago. She has had extensive metastatic workup which is only positive for the local recurrence picked up on colonoscopy. No evidence of any regional or other distant disease. The meantime, patient has been tolerating a diet, having regular bowel habits. Increasing her activity level to baseline. Patient is very well known to me. Chart was reviewed and patient evaluated. HOSPITAL COURSE: On 06/12/23, exploratory laparotomy, enterolysis, resection of prior anastomosis and ileo transverse colon primary anastomosis was performed by Dr. Valles without complication. The patient tolerated the procedure well and was admitted postoperatively for observation. She had an uncomplicated recovery course. She was started on clear liquids post operatively. On POD #1, she had good pain control but developed some nausea and vomiting. Her abdomen was benign with appropriate post op tenderness with clean incision. Her morocho was removed. She was continued on clear liquids until her nausea resolved and GI function returned. She began passing flatus and liquid bowel movements on POD #2. Her activity was increased. Her diet was advanced to solids on POD #3. She was noted to be persistently hypertensive with SBPs ranging from 140s-170s and she was started on norvasc 5mg PO daily. Her BP improved to SBP of mid 130s. On the day of discharge, she was tolerating a solid diet without nausea or vomiting. Her pain was minimal and well controlled. She was ambulating without difficulty. She had good GI function. Her abdomen was benign with clean incision. She felt ready for discharge to home. She was discharged to home on 3/19/24 in stable condition. She is to follow up with Dr. Valles in 1 week in the office. She is to follow up with her PCP regarding further management of her hypertension. <Temitope Snyder PA-C - Last Filed: 06/16/23 12:15> Status at Discharge Functional status at discharge: independent ambulation <Temitope Snyder PA-C - Last Filed: 06/16/23 12:15> Overall status at discharge: patient is progressing back to baseline <Temitope Snyder PA-C - Last Filed: 06/16/23 12:15> Time Attestation Discharge Coordination Time (in mins): 35 <Temitope Snyder PA-C - Last Filed: 06/16/23 12:15> Quality: Safe Use of Opioids Does Pt have an Active Cancer Diagnosis on the Problem List?: Yes <Temitope Snyder PA-C - Last Filed: 06/16/23 12:15> Opioid Measure Date for [facility] Report: 18 <Temitope Snyder PA-C - Last Filed: 06/16/23 12:15> 18/24 <Hayes Valles MD - Last Filed: 06/16/23 10:40> Opioid Measure Time for [facility] Report: 12:08 <Temitope Snyder PA-C - Last Filed: 06/16/23 12:15> 10:40 <Hayes Valles MD - Last Filed: 06/16/23 10:40> Quality: Stroke Does the patient have a stroke diagnosis?: No <Temitope Paredesau, PA-C Jana Last Filed: 06/16/23 12:15> Physical Exam Vital Signs: Vital Signs: Last Vital Signs Temp 98.4 F 06/16/23 07:33 Pulse 69 06/16/23 07:33 Resp 16 06/16/23 07:33 BP 139/61 06/16/23 07:33 Pulse Ox 93 06/16/23 07:33 O2 Del Method Room Air 06/16/23 07:33 O2 Flow Rate 3 06/12/23 15:28 BMI result Body Mass Index 29.7 <Temitope MaySERINA wangNanette Last Filed: 06/16/23 12:15> Const: General: comfortable, no acute distress and alert <Temitope MaySERINA wangNanette Last Filed: 06/16/23 12:15> Orientation/consciousness: patient oriented x3 <Temitope MaySERINA wangJana Last Filed: 06/16/23 12:15> Resp: Effort & Inspection: normal respiratory effort <Temitope MaySERINA wangNanette Last Filed: 06/16/23 12:15> Cardio: Rate: regular rate <Temitope MaySERINA wangJana Last Filed: 06/16/23 12:15> GI: Inspection: No distended and Yes incision (clean, mild surrounding ecchymosis ) <Temitope MaySERINA wangNanette Last Filed: 06/16/23 12:15> Palpation (GI): Soft to palpation, Tenderness to palpation present (GI) (mild incisional), no guarding and not rigid <Temitope MaySERINA wangNanette Last Filed: 06/16/23 12:15> Skin: General skin exam: no rashes or lesions noted <Temitope MaySERINA wangJana Jana Last Filed: 06/16/23 12:15> Neuro: General: patient oriented x3 and moves all extremities <TemitopeESRINA PuenteNanette Last Filed: 06/16/23 12:15> DS: Data Data Completed and Pending Completed studies during hospitalization [Text1]: Procedures Excision of Ascending Colon, Via Natural or Artificial Opening Endoscopic, Diagnostic (11/25/22) Excision of Duodenum, Via Natural or Artificial Opening Endoscopic, Diagnostic (11/25/22) Excision of Esophagogastric Junction, Via Natural or Artificial Opening Endoscopic, Diagnostic (11/25/22) Excision of Stomach, Pylorus, Via Natural or Artificial Opening Endoscopic, Diagnostic (11/25/22) Resection of Appendix, Open Approach (12/11/22) Resection of Right Large Intestine, Open Approach (12/11/22) Transfusion of Nonautologous Red Blood Cells into Peripheral Vein, Percutaneous Approach (11/25/22) <Temitope Snyder PA-C - Last Filed: 06/16/23 12:15> Pending studies at discharge: Pending at discharge 06/12/23 10:16 Surgical [PTH] Routine <CARINA Morales Last Filed: 06/16/23 12:15> Discharge Plan Discharge Anticipated Discharge Date/Time: 06/16/23 14:44 <CARINA Morales Last Filed: 06/16/23 12:15> Patient Disposition: Home, Self-Care <Temitope Snyder PA-C - Last Filed: 06/16/23 12:15> Discharge Diagnosis: s/p resection of prior anastomosis and ileo transverse colon primary anastomosis <Temitope Snyder PA-C - Last Filed: 06/16/23 12:15> s/p resection of prior anastomosis and ileo transverse colon primary anastomosis <Hayes Valles MD - Last Filed: 06/16/23 10:40> Referrals: Hayes Valles MD [Physician] - 1 Week Everardo Blair MD [Primary Care Provider] - 1 Week <CARINA Morales Last Filed: 06/16/23 12:15> Discharge Medications: New amlodipine 5 mg Tablet 5 mg PO DAILY Qty: 30 0RF Protocol: Hold for SBP< HOLD for SBP < : 90 oxycodone 5 mg tablet 5 mg PO Q4H PRN (Reason: pain (scale score 7-10)) Qty: 24 0RF Rx Instructions: Partial Fill upon patient request. loperamide [Imodium A-D] 2 mg tablet 2 mg PO Q4H PRN (Reason: loose stool) Qty: 20 0RF Rx Instructions: administer after each loose stool until symptoms controlled; do not exceed 8 mg per 24 hrs Continued pantoprazole 40 mg tablet,delayed release (DR/EC) 40 mg PO BID Qty: 180 1RF lorazepam 0.5 mg Tablet 0.5 mg PO BEDTIME PRN (Reason: Anxiety) Qty: 30 0RF <Temitope Snyder PA-C - Last Filed: 06/16/23 12:15> Discharge Orders: Discharge Order (Routine); Ordered 06/16/23 Ordered By: Temitope Snyder <Temitope Snyder PA-C - Last Filed: 06/16/23 12:15> Diet: Advance to usual diet <Temitope Snyder PA-C - Last Filed: 06/16/23 12:15> Advance to usual diet <Hayes Valles MD - Last Filed: 06/16/23 10:40> Activity on Discharge: No heavy lifting <Temitope Snyder PA-C - Last Filed: 06/16/23 12:15> No heavy lifting <Hayes Valles MD - Last Filed: 06/16/23 10:40> Stand Alone Forms: Patient Portal Discharge page <Temitope Snyder PA-C - Last Filed: 06/16/23 12:15> Activity Restrictions/Additional Instructions: You have steri strips (small white cloth strips) covering your incision- these will fall off ~1 week. Follow up in office with Dr. Valles in 1 week. ([phone]) No heavy lifting (>10lbs) or strenuous activity! Call Your Doctor If: -Your temperature exceeds 101.5? F -You experience excessive pain or swelling -You have an unexpected reaction to medication -You have excessive bleeding -You experience continued vomiting/nausea -Your incision begins to separate -Your incision shows signs of infection such as increased redness, swelling, excessive pain, drainage (light blood or clear fluid is normal) or heat <Temitope Snyder PA-C - Last Filed: 06/16/23 12:15> Care Plan Goals: Return to baseline health and resume normal activities following recovery period. 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 Valles in 1 week. F/u with PCP regarding high blood pressure. <Temitope Snyder PA-C - Last Filed: 06/16/23 12:15> Assessment: Doing well post operatively. <Temitope Snyder PA-C - Last Filed: 06/16/23 12:15> Discharge Date/Time: 06/16/23 12:12 <CARINA Morales Last Filed: 06/16/23 12:15>
--- NOTE | 2023-06-16 10:37 | P.PNGS_ITS ---
Subjective Subjective Date of Service: 06/16/23 Interval history: Tolerating solid diet but poor appetite. Denies nausea or vomiting. Pain well controlled. Continues to have liquid stools which is her baseline she states. Wants to go home. Physical Exam 2 Vital Signs: Vital Signs: Last Vital Signs Temp 98.4 F 06/16/23 07:33 Pulse 69 06/16/23 07:33 Resp 16 06/16/23 07:33 BP 139/61 06/16/23 07:33 Pulse Ox 93 06/16/23 07:33 O2 Del Method Room Air 06/16/23 07:33 O2 Flow Rate 3 06/12/23 15:28 BMI result Body Mass Index 29.7 Const: General: comfortable, no acute distress and alert O rientation/consciousness: patient oriented x3 Resp: Effort & Inspection: normal respiratory effort Cardio: Rate: regular rate GI: Inspection: No distended and Yes incision (clean, mild ecchymosis ) P alpation (GI): Soft to palpation, Tenderness to palpation present (GI) (mild incisional) and no guarding Skin: General skin exam: no rashes or lesions noted Neuro: General: patient oriented x3 and moves all extremities Objective Data Active Medications Al Hydroxide/Mg Hydroxide (Magnesium Hydrox/Alum Hydrox 30 Ml Oral.Susp) 30 ml PO Q4H PRN PRN Reason: Heartburn/Nausea Last Admin: 06/12/23 22:19 Dose: 30 ml Documented By: PEDRO Amlodipine Besylate (Amlodipine Besylate 5 Mg Tablet) 5 mg PO DAILY [facility]; Protocol Last Admin: 06/16/23 07:58 Dose: 5 mg Documented By: PEYMAN Heparin Sodium (Porcine) (Heparin Sodium,Porcine 5,000 Unit/Ml Vial) 5,000 unit SUBCUT Q12H [facility] Last Admin: 06/15/23 23:26 Dose: 5,000 unit Documented By: MARCO ANTONIO Acetaminophen (Ofirmev) 1,000 mg in 100 mls @ 400 mls/hr IV Q6H [facility] Last Admin: 06/16/23 09:39 Dose: Not Given Documented By: PEYMAN Non-Admin Reason: held Lorazepam (Lorazepam 0.5 Mg Tablet) 0.5 mg PO BEDTIME PRN PRN Reason: Anxiety Melatonin (Melatonin 3 Mg Tablet) 6 mg PO BEDTIME PRN PRN Reason: Insomnia Morphine Sulfate (Morphine Sulfate 2 Mg/Ml Cartridge) 4 mg IVPUSH Q4H PRN; Protocol PRN Reason: Pain, Severe (Pain Scale 7-10) Omeprazole (Omeprazole 20 Mg Capsule.) 20 mg PO BID@0630,1630 [facility] Last Admin: 06/16/23 05:56 Dose: 20 mg Documented By: MARCO ANTONIO Ondansetron HCl (Ondansetron Hcl 4 Mg/2 Ml Vial) 4 mg IVPUSH Q8H PRN PRN Reason: Nausea and Vomiting Last Admin: 06/14/23 03:23 Dose: 4 mg Documented By: ODRISShruthi Oxycodone HCl (Oxycodone Hcl Immed Release 5 Mg Tablet) 5 mg PO Q4H PRN PRN Reason: Pain, Moderate(Pain Scale 4-6) Sodium Chloride (0.9 % Sodium Chloride Flush 3 Ml Syringe) 3 ml IVFLUSH QSHIFT [facility] Last Admin: 06/16/23 08:02 Dose: 3 ml Documented By: PRESTOS Labs 06/13/23 05:05 06/13/23 05:05 Procedures Date of Service Date of Service: 06/16/23 Progress Note: A&P Assessment and plan (1) 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 Encouraged to drink protein supplements until appetite increases. Abd benign with clean incision. Stable for dc to home today. F/u in office in [address] Valles. F/u with PCP regarding hypertension. Dc on Norvasc 5mg PO daily. Asking for something for diarrhea- sent with imodium- instructed to avoid constipation. Patient comfortable with plan. Time Spent With Patient Time: Total time managing care of this patient today ____ minutes. Quality Stroke Does the patient have a stroke diagnosis?: No VTE Prior VTE?: No VTE Risk Level:: Surgical - low VTE Device Contraindication: N/A - Device Ordered VTE Drug Contraindication: N/A - Med Ordered
--- NOTE | 2023-06-16 10:57 | MHC.CM.PN ---
pt dcd home no servies ordered by
== END 2023-06-16 12:12 | disposition home or self-care (01) | DRG 331 ==
LOC: HO.SSSA 11:45 → HO.S3 13:26
PROVIDERS: Physician Assistant Surgical; Admitting Provider Surgery; PCP Internal Medicine; Visit Provider Surgery
PROC: 0DTF0ZZ Resection of Right Large Intestine, Open Approach (ICD-10-PCS; CPT 49000; principal; 2023-06-12 09:00)
DX: C18.2 Malignant neoplasm of ascending colon (principal); K21.9 Gastro-esophageal reflux disease without esophagitis; K66.0 Peritoneal adhesions (postprocedural) (postinfection); Z79.899 Other long term (current) drug therapy
CPT/HCPCS: 36415; 80048; 85025; 86850; 86900; 86901; 86923; 88309; C1758; J0131; J1100; J1170; J1644; J1836; J2250; J2405; J2704; J2795; J3010; J7120; P9016

== ENCOUNTER 2023-06-23 13:09 | Outpatient (AMB) | payer MEDICARE, SELFPAY ==
--- NOTE | 2023-06-23 13:13 | A.OFFVIS_ITS ---
Intake Intake Visit Reasons: S/p Bowel Resection Intake Note: This patient presents for a post-op follow-up assesment status post bowel resection. Patient c/o; reports no changes. 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 She is having loose stools which apparently she has a longstanding history of this secondary to irritable bowel syndrome. She is being treated by Dr. Blanton/CARMELO and he prescribed some antidiarrheals for her. Her p.o. intake is marginal. Her activity level is also limited according to her daughter. She has some serous drainage from incision a few days ago which has resolved. Pathology results were reviewed [facility] Medical History (Updated 06/08/23 @ 15:51 by Casie Deluna RN) H pylori ulcer GERD (gastroesophageal reflux disease) History of recent blood transfusion Anemia Mass of colon Surgical History Status post small bowel resection (06/12/23) History of exploratory laparotomy (12/11/22) History of surgery Hx of tonsillectomy History of esophagogastroduodenoscopy (EGD) H/O colonoscopy Family History Other Mental health disorder Substance use disorder Social History Household Members: Spouse Housing: Condominium Are you a primary primary care nurse practitioner to a significant other at home: Yes (-has Parkinson's-helps him with his care) Do you presently have visiting nurse or other home services: No Alcohol intake: current Alcohol intake frequency: does not drink Alcohol type: wine Patient Tobacco Use Status: Never used Tobacco e-Cigarette/Vaping Use: Never Used Second Hand Smoke Exposure: No Use of substances other than those prescribed or required for medical reasons: No Do you feel safe in your current relationship?: Yes Advance Directives Date on File: 12/23/22 Do you have thoughts of harming others: None Do you have a plan to hurt others: No Plan Patient : No service: No Current occupational status: retired Cognitive needs: No Hearing needs: No Vision needs: Yes (glasses) Physical Exam GI Other: Abdomen is soft. Incision clean dry and intact healing uneventfully. Abdomen otherwise benign. Assessment & Plan Assessment & Plan (1) Postop check: Code(s): Z09 - Encounter for follow-up examination after completed treatment for conditions other than malignant neoplasm Plan At present, the patient and daughter been encouraged to advance diet as tolerated. I also recommended nutritional supplements, boost, ensure, Sustacal etcetera whatever the patient will tolerate. She should also attempt to increase her activity level. Patient will see me in a proximally 2 weeks time or p.r.n.. She is also scheduled to follow-up with her oncologist. All questions answered. Coding Level of Care Code Global (88134) Diagnoses Postop check Z09
== END 2023-06-23 13:33 | disposition home or self-care (01) ==
PROVIDERS: PCP Internal Medicine; Visit Provider Surgery
DX: Z09 Encounter for follow-up examination after completed treatment for conditions other than malignant neoplasm (principal)
CPT/HCPCS: 99024

== ENCOUNTER → 2023-06-23 13:09 | Outpatient (BNVA) | payer MEDICARE, SELFPAY | PROVIDERS: PCP Internal Medicine; Visit Provider Surgery | DX: Z09 Encounter for follow-up examination after completed treatment for conditions other than malignant neoplasm (principal) | CPT/HCPCS: 99212 ==

== ENCOUNTER 2023-07-08 13:21 | Outpatient (AMB) | payer MEDICARE, SELFPAY ==
--- NOTE | 2023-07-08 13:27 | A.OFFVIS_ITS ---
Intake Intake Visit Reasons: 2 wks post bowel resection Intake Note: Patient here for 2wk f/u post bowel resection. Patient c/o: abd tenderness, diarrhea getting better SX: 06-12-23. [employer] Solution Architect Required: No Accompanied by: daughter in law Allergies No Known Allergies Allergy (Verified 07/08/23 13:28) HPI HPI Comments History of Present Illness Details Patient presents for follow-up. She presents with her family member. She is doing well. She is tolerating her diet. He is having regular bowel habits. She is increasing her activity level. She is minimal incisional discomfort. [facility] Medical History H pylori ulcer GERD (gastroesophageal reflux disease) History of recent blood transfusion Anemia Mass of colon Surgical History Status post small bowel resection (06/12/23) History of exploratory laparotomy (12/11/22) History of surgery Hx of tonsillectomy History of esophagogastroduodenoscopy (EGD) H/O colonoscopy Family History Other Mental health disorder Substance use disorder Social History Household Members: Spouse Housing: [facility] Are you a primary customer care voice consultant to a significant other at home: Yes (-has Parkinson's-helps him with his care) Do you presently have visiting nurse or other home services: No Alcohol intake: current Alcohol intake frequency: does not drink Alcohol type: wine Patient Tobacco Use Status: Never used Tobacco e-Cigarette/Vaping Use: Never Used Second Hand Smoke Exposure: No Advance Directives Date on File: 12/23/22 service: No Current occupational status: retired Cognitive needs: No Hearing needs: No Vision needs: Yes (glasses) Physical Exam GI Other: Abdomen is soft. Wound clean dry and intact healing very well Assessment & Plan Assessment & Plan (1) Postop check: Code(s): Z09 - Encounter for follow-up examination after completed treatment for conditions other than malignant neoplasm Plan From a postop surgical perspective, patient is doing very well. She is scheduled see Oncology next week. Should the patient have any surgical issues, she had been instructed to contact the office. Otherwise she will follow-up p.r.n.. All questions answered. Coding Level of Care Code Global (71406) Diagnoses Postop check Z09
== END 2023-07-08 13:43 | disposition home or self-care (01) ==
PROVIDERS: PCP Internal Medicine; Visit Provider Surgery
DX: Z09 Encounter for follow-up examination after completed treatment for conditions other than malignant neoplasm (principal)
CPT/HCPCS: 99024

== ENCOUNTER → 2023-07-08 13:21 | Outpatient (BNVA) | payer MEDICARE, SELFPAY | PROVIDERS: PCP Internal Medicine; Visit Provider Surgery | DX: Z09 Encounter for follow-up examination after completed treatment for conditions other than malignant neoplasm (principal); Z90.49 Acquired absence of other specified parts of digestive tract | CPT/HCPCS: 99212 ==

== ENCOUNTER 2023-07-21 10:25 | Outpatient (AMB) | payer MEDICARE, SELFPAY ==
--- NOTE | 2023-07-21 10:28 | MHC.PC.OV ---
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 Required: No Student Services Representative: Present Accompanied by: Daughter Allergies No Known Allergies Allergy (Verified 07/21/23 16:55) Medication List - Last Reconciled 07/21/23 by Everardo Blair MD amlodipine 5 mg See Protocol PO DAILY loperamide (Imodium A-D) 2 mg PO Q4H PRN lorazepam 0.5 mg PO BEDTIME PRN pantoprazole 40 mg PO BID Tobacco use date assessed: 07/21/23 Fall risk assessment: No Falls in past year Last assessed Fall Risk: 07/21/23 Dental Screening Dental Screen Date: 07/21/23 Did you have a dental visit in the last 12 months?: No Did you have a dental problem in the last 6 months where you did not have access to dental care?: No Was dental information given to patient?: Patient has dentist HPI BP med follow up HPI Details 77-year-old female presents to the office to discuss her chronic medical conditions. She is accompanied along with her daughter. Patient had to undergo a 2nd surgery for removal of her colon tumor. The tumor grew at the anastomosis site of the previous surgery. This surgery was complicated with hypokalemia and sepsis. Patient is now recovered and feeling stable. She is able to tolerate p.o. feeds and having regular bowel movements. Her blood pressure has been high and was started on amlodipine in the hospital. Patient reports that she does not like the medication. It makes her feel awkward. She has not able to explain in a better way. A CEA level was drawn and patient would like to know the results. ON LICENSE OF [facility] Medical History (Updated 07/21/23 @ 17:04 by Everardo Blair MD) Essential hypertension H pylori ulcer GERD (gastroesophageal reflux disease) History of recent blood transfusion Anemia Mass of colon Surgical History Status post small bowel resection (06/12/23) History of exploratory laparotomy (12/11/22) History of surgery Hx of tonsillectomy History of esophagogastroduodenoscopy (EGD) H/O colonoscopy Family History Other Mental health disorder Substance use disorder Social History Household Members: Spouse Housing: Condominium Are you a primary career representative to a significant other at home: Yes (-has Parkinson's-helps him with his care) Do you presently have visiting nurse or other home services: No Alcohol intake: current Alcohol intake frequency: does not drink Alcohol type: wine Patient Tobacco Use Status: Never used Tobacco e-Cigarette/Vaping Use: Never Used Second Hand Smoke Exposure: No Advance Directives Date on File: 12/23/22 service: No Current occupational status: retired Cognitive needs: No Hearing needs: No Vision needs: Yes (glasses) Questionnaire PHQ-9 Over the last 2 weeks, how often have you been bothered by any of the following problems? 1. Little interest or pleasure in doing things: not at all 2. Feeling down, depressed, or hopeless: not at all 3. Trouble falling or staying asleep, or sleeping too much: not at all 4. Feeling tired or having little energy: not at all 5. Poor appetite or overeating: not at all 6. Feeling bad about yourself - or that you are a failure or have let yourself or your family down: not at all 7. Trouble concentrating on things, such as reading the newspaper or watching television: not at all 8. Moving or speaking so slowly that other people could have noticed. Or the opposite - being so fidgety or restless that you have been moving around a lot more than usual: not at all 9. Thoughts that you would be better off or of hurting yourself in some way: not at all Total score: 0 Depression Screening Interpretation: Negative Depression Screening Done: Yes Source: Developed by Drs. Dada Mann, Radha Restrepo, Tello Tracy and colleagues, with an educational berenice from [employer]. Thrive Questionnaire Date Thrive assessed: 06/13/23 AUDIT C Alcohol Use Questionnaire (AUDIT-C) 1. How often do you have a drink containing alcohol?: Never Total Score: 0 RODRI-7 AMB Questionnaire RODRI-7 Date RODRI - 7 assessed: 07/21/23 Feeling nervous, anxious, or on edge: 1 = Several days Not being able to stop or control worryin = Not at all Worrying too much about different things: 0 = Not at all Trouble relaxin = Not at all Being so restless that it is hard to sit still: 0 = Not at all Becoming easily annoyed or irritable: 0 = Not at all Feeling afraid as if something awful might happen: 0 = Not at all Total RODRI-7 score (0-4 normal; 5-9 mild; 10-14 moderate; 15-21 severe): 1 Source: Developed by Drs. Dada Mann, Radha Restrepo, Tello Tarcy and colleagues, with an educational berenice from [employer]. Physical exam (Primary Care) Vital Signs: Last Vital Signs Pulse 79 07/21/23 10:32 BP 140/62 H 07/21/23 10:32 Pulse Ox 98 07/21/23 10:32 Oxygen Delivery Method Room Air 07/21/23 10:32 BMI result Body Mass Index 28.4 Tobacco/Smoking Status: Tobacco use Status Tobacco use date assessed 07/21/23 07/21/23 10:44 Patient Tobacco Use Status Never used Tobacco 07/21/23 10:44 e-Cigarette/Vaping Use Never Used 07/21/23 10:44 PHQ-9: PHQ-9 Score PHQ-9: Total score 0 07/21/23 10:44 Depression Screening Interpretation: Negative Thrive Assessment: Date of Thrive Assessment Date Thrive assessed 06/13/23 07/21/23 10:44 Advance Care Planning discussion: Exists, not on file Date of discussion: 07/21/23 Who was present: Patient and daughter. Forms completed: Health Care Proxy and MOLST Time spent: 1-15 minutes, not on file Actual minutes spent: 5 Const General: cooperative and healthy appearing Nutritional Appearance: well nourished Orientation/consciousness: patient oriented x3 Limitations: no limitations HENMT Head: Yes normal to inspection Eyes General: appearance normal, both eyes and all related structures Neck Neck: Yes normal visual inspection Chest Chest palpation & inspection: normal palpation of entire chest wall Resp Effort & Inspection: normal respiratory effort Neuro General: patient oriented x3 Assessment and Plan Assessment & Plan (1) Mass of colon: Code(s): K63.89 - Other specified diseases of intestine Plan: Oncology note and hospital discharge summary reviewed. Daughter wanted to know if her mother was a candidate for chemotherapy. I promised to call the oncologist and seek her opinion on this. CEA level was 5.6. (2) Essential hypertension: Code(s): I10 - Essential (primary) hypertension Plan: At the end of the meeting, patient has agreed to continue on the amlodipine. Will continue to check the blood pressures. Coding Level of Care Code Est Pt Level 4 (12195) Diagnoses Mass of colon K63.89 Essential hypertension I10 Additional Codes Vital Signs *Quality* - Advance Care Planning discussion: Exists, not on file ([id number]) Vital Signs *Quality* - Time spent: 1-15 minutes, not on file ([id number])
[2023-07-21 10:32] VITALS: BP 140/62; PULSE 79; O2SAT 98; BMI 28.4
== END 2023-07-21 11:14 | disposition home or self-care (01) ==
PROVIDERS: PCP Internal Medicine; Visit Provider Internal Medicine
DX: K63.89 Other specified diseases of intestine (principal); I10 Essential (primary) hypertension; Z00.00 Encounter for general adult medical examination without abnormal findings
CPT/HCPCS: 1123F; 1124F; 99214

== ENCOUNTER 2023-10-21 15:10 | Outpatient (REF) | payer MEDICARE, SELFPAY ==
--- NOTE | ~2023-10-21 | CT_ITS ---
STUDY: IV contrast-enhanced CT of the chest, abdomen and pelvis HISTORY: Recurrent colon cancer COMPARISON: 04/15/2023, 04/28/2023 PET/CT TECHNIQUE: Continuous helical imaging obtained through the chest, abdomen and pelvis following injection of 85 mL Omnipaque 350 IV contrast without adverse effect. Oral contrast was also administered. Reconstructed images coronal and sagittal planes. MIP images of the chest generated. This CT examination was performed using dose optimization techniques as appropriate, variously including the following: *Automated exposure control *Adjustment of mA and/or kV according to patient size (this includes techniques or standardized protocols for targeted exams where dose is matched to indication/reason for exam; i.e. 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 Nonobstructive bowel pattern. Chest: Airways and lungs: Trachea and bronchi are patent. Unchanged mild biapical pleural-parenchymal thickening. No consolidations, groundglass opacities or pulmonary nodules. Mediastinum: Unremarkable thyroid. No pathologic mediastinal lymphadenopathy. Nonenlarged heart. No pericardial effusion. Degree of coronary calcifications: Absent. Nonaneurysmal aorta with mild atherosclerotic calcifications. Patency of the aortic branch vessels. Nonenlarged pulmonary arteries. Pleura: No effusions, thickening or masses. Chest wall and axilla: Nonspecific axillary lymph nodes. Abdomen and pelvis: Hepatobiliary: Diffuse hypodensity to liver parenchyma. No lesions, intra or extrahepatic biliary ductal dilatation. Spleen, pancreas and adrenal glands within normal limits. Kidneys, ureters and bladder: Symmetrically perfused. No lesions, hydroureteronephrosis, renal, ureteral or bladder calculi. No perinephric stranding. Under distended urinary bladder. Gastrointestinal: Thick walled hiatal hernia. 2.7 x 2.4 cm soft tissue density in the GE junction. Under distended stomach. Nonobstructive bowel pattern. There has been interval resection of eccentrically thickened right hemicolectomy anastomotic suture line. New suture line identified now identified mid transverse colon. Mild circumferential rectal thickening. Pelvic organs: Cannot exclude lower uterine segment 1.5 cm enhancing polyp. Vascular: Atherosclerotic calcifications nonaneurysmal aorta. Normal caliber inferior vena cava and iliac veins. Patent portal system. Lymph nodes: Several prominent mesenteric lymph nodes in the right upper quadrant were seen on previous CT. On the current study, couple small mesenteric lymph nodes identified in the right mid mesentery, larger measuring 5 mm on 4:36. Couple small left upper quadrant again identified in the 56 mm range, 4:31, 4:34 No change 8 mm left iliac lymph node, 4:46 no retroperitoneal pathologic lymphadenopathy. Abdominal wall: Postoperative changes again noted. Bones and soft tissues: L5-S1 disc disease. No suspicious osseous lesions. CT/CT abdomen pelvis w IV con IMPRESSION: Interval surgery for suspected local recurrence following previous right hemicolectomy. Small regional right mesenteric nodes, unclear if residual versus interval development. Close follow-up recommended. Soft tissue density GE junction, question thickening, infiltrating mass not excluded. Consider endoscopy. Lower uterine segment polyp not excluded. Consider pelvic ultrasound.
[2023-10-21] MEDS: iohexoL 350 MG/ML 100 ML INFUS..BTL 85 ML IV (15:46)
== END 2023-10-21 15:11 | disposition home or self-care (01) ==
LOC: HO.CT 15:10
PROVIDERS: PCP Internal Medicine; Visit Provider Internal Medicine Medical Oncology
DX: D49.0 Neoplasm of unspecified behavior of digestive system (principal); Z98.0 Intestinal bypass and anastomosis status
CPT/HCPCS: 71260; 74177; Q9967

== ENCOUNTER 2023-11-05 10:03 | Outpatient (AMB) | payer MEDICARE, SELFPAY ==
[2023-11-05 10:11] VITALS: BP 158/56; PULSE 79; O2SAT 98
--- NOTE | 2023-11-05 10:11 | MHC.PC.OV ---
Vital Signs 11/05/23 10:11 Height 5 ft 4 in Weight 175 lb 0.4 oz BMI 30.0 BP 158/56 H Blood Pressure Location Lt brachial Position Sitting Pulse 79 Pulse Source Pulse Oximeter Pulse Oximetry (%) 98 Oxygen Delivery Method Room Air Intake Visit Reasons: 3MOF\U Unit Support Representative Required: No Allergies No Known Allergies Allergy (Verified 11/09/23 06:43) Medication List - Last Reconciled 11/06/23 by Everardo Blair MD amlodipine 5 mg See Protocol PO DAILY barium sulfate 2%(w/v) (Readi-Cat 2) 450 mL PO 2XD colesevelam 1,250 mg (2 x 625 mg) PO BID 90 days loperamide (Imodium A-D) 2 mg PO Q4H PRN lorazepam 0.5 mg PO BEDTIME PRN pantoprazole 40 mg PO BID Tobacco use date assessed: 07/21/23 Fall risk assessment: No Falls in past year Last assessed Fall Risk: 11/05/23 Dental Screening Dental Screen Date: 07/21/23 HPI 3MOF\U HPI Details 78-year-old female presents to the office to discuss her chronic medical conditions. Patient is at baseline state of health. Able to function and do all activities of daily living. She is having regular bowel habits. Sleep patterns are normal. Compliant with all medications. PENDING SALE TO [facility] Medical History Essential hypertension H pylori ulcer GERD (gastroesophageal reflux disease) History of recent blood transfusion Anemia Mass of colon Surgical History Status post small bowel resection (06/12/23) History of exploratory laparotomy (12/11/22) History of surgery Hx of tonsillectomy History of esophagogastroduodenoscopy (EGD) H/O colonoscopy Family History Other Mental health disorder Substance use disorder Social History Household Members: Spouse Housing: Condominium Are you a primary family day care provider to a significant other at home: Yes (-has Parkinson's-helps him with his care) Do you presently have visiting nurse or other home services: No Alcohol intake: current Alcohol intake frequency: does not drink Alcohol type: wine Patient Tobacco Use Status: Never used Tobacco e-Cigarette/Vaping Use: Never Used Second Hand Smoke Exposure: No Advance Directives Date on File: 12/23/22 service: No Current occupational status: retired Cognitive needs: No Hearing needs: No Vision needs: Yes (glasses) Questionnaire Thrive Questionnaire Date Thrive assessed: 06/13/23 AUDIT C Alcohol Use Questionnaire (AUDIT-C) 1. How often do you have a drink containing alcohol?: Never Total Score: 0 RODRI-7 AMB Questionnaire RORDI-7 Date RODRI - 7 assessed: 07/21/23 Source: Developed by Drs. Dada Mann, Radha Restrepo, Tello Tracy and colleagues, with an educational berenice from [employer]. Physical exam (Primary Care) Vital Signs: Last Vital Signs Pulse 79 11/05/23 10:11 BP 158/56 H 11/05/23 10:11 Pulse Ox 98 11/05/23 10:11 Oxygen Delivery Method Room Air 11/05/23 10:11 Care Plan Goal for BP management: Blood pressure is elevated. Medications to be adjusted. BMI result Body Mass Index 30.0 BMI Assessment/Plan discussion: High (1 lb per week weight loss suggested.) BMI High, discussed plan: lifestyle, weight reduction and dietary Tobacco/Smoking Status: Tobacco use Status Tobacco use date assessed 07/21/23 11/05/23 10:15 Patient Tobacco Use Status Never used Tobacco 11/05/23 10:15 e-Cigarette/Vaping Use Never Used 11/05/23 10:15 Thrive Assessment: Date of Thrive Assessment Date Thrive assessed 06/13/23 11/05/23 10:15 Const General: cooperative and healthy appearing Nutritional Appearance: well nourished Orientation/consciousness: patient oriented x3 Limitations: no limitations HENMT Head: Yes normal to inspection Eyes General: appearance normal, both eyes and all related structures Neck Neck: Yes normal visual inspection Chest Chest palpation & inspection: normal palpation of entire chest wall Resp Effort & Inspection: normal respiratory effort Neuro General: patient oriented x3 Assessment and Plan Assessment & Plan (1) Essential hypertension: Code(s): I10 - Essential (primary) hypertension Plan: Elevated blood pressure noted. No changes in medication done yet. Patient was advised to record blood pressure readings and report them in. (2) Cancer of right colon: Code(s): C18.2 - Malignant neoplasm of ascending colon Plan: Condition is stable. Coding Level of Care Code Est Pt Level 4 (54574) Complex EM visit Add On G2211 Diagnoses Essential hypertension I10 Cancer of right colon C18.2
== END 2023-11-05 10:46 | disposition home or self-care (01) ==
PROVIDERS: PCP Internal Medicine; Visit Provider Internal Medicine
DX: I10 Essential (primary) hypertension (principal); C18.2 Malignant neoplasm of ascending colon
CPT/HCPCS: 99214; G2211

== ENCOUNTER 2024-09-08 14:53 | Outpatient (AMB) | payer MEDICARE, SELFPAY ==
--- NOTE | 2024-09-08 14:59 | A.OFFPC_ITS ---
Vital Signs 09/08/24 15:01 09/08/24 15:21 Height 5 ft 4 in Weight 192 lb 6 oz BMI 33.0 BP 150/68 H 130/60 Blood Pressure Location Lt brachial Lt brachial Position Sitting Sitting Pulse 75 Pulse Source Pulse Oximeter Temp 97.3 F Temp Source Temporal Artery Scan Pulse Oximetry (%) 97 Oxygen Delivery Method Room Air Intake Visit Reasons: 6 month follow up Intake Note: Patient is here to follow up on HTN, Anemia. Controller Instructor Required: No Control System Manager: Present Accompanied by: Spouse Allergies No Known Allergies Allergy (Verified 09/09/24 07:47) Medication List - Last Reconciled 09/09/24 by Everardo Blair MD amlodipine 5 mg PO DAILY colesevelam 1,250 mg (2 x 625 mg) PO BID 90 days hydrocortisone 2.5% (Anusol-HC) 1 appl IN BEDTIME loperamide (Imodium A-D) 2 mg PO Q4H PRN pantoprazole 40 mg PO BID Tobacco use date assessed: 09/08/24 Fall risk assessment: No Falls in past year Last assessed Fall Risk: 09/08/24 Dental Screening Dental Screen Date: 09/08/24 Did you have a dental visit in the last 12 months?: No Did you have a dental problem in the last 6 months where you did not have access to dental care?: No Was dental information given to patient?: Patient has dentist [facility] Medical History Essential hypertension H pylori ulcer GERD (gastroesophageal reflux disease) History of recent blood transfusion Anemia Mass of colon Surgical History Status post small bowel resection (06/12/23) History of exploratory laparotomy (12/11/22) History of surgery Hx of tonsillectomy History of esophagogastroduodenoscopy (EGD) H/O colonoscopy (~05/12/23) Family History Other Mental health disorder Substance use disorder Social History Household Members: Spouse Housing: Condominium Are you a primary health care sanitary technician to a significant other at home: Yes (-has Parkinson's-helps him with his care) Do you presently have visiting nurse or other home services: No Alcohol intake: current Alcohol intake frequency: does not drink Alcohol type: wine Patient Tobacco Use Status: Never used Tobacco e-Cigarette/Vaping Use: Never Used Second Hand Smoke Exposure: No Advance Directives Date on File: 12/23/22 service: No Current occupational status: retired Cognitive needs: No Hearing needs: No Vision needs: Yes (glasses) Questionnaire PHQ-9 Over the last 2 weeks, how often have you been bothered by any of the following problems? 1. Little interest or pleasure in doing things: not at all 2. Feeling down, depressed, or hopeless: not at all 3. Trouble falling or staying asleep, or sleeping too much: not at all 4. Feeling tired or having little energy: not at all 5. Poor appetite or overeating: not at all 6. Feeling bad about yourself - or that you are a failure or have let yourself or your family down: not at all 7. Trouble concentrating on things, such as reading the newspaper or watching television: not at all 8. Moving or speaking so slowly that other people could have noticed. Or the opposite - being so fidgety or restless that you have been moving around a lot more than usual: not at all 9. Thoughts that you would be better off or of hurting yourself in some way: not at all Total score: 0 Depression Screening Interpretation: Negative Depression Screening Done: Yes Source: Developed by Drs. Dada Mann, Radha Restrepo, Tello Tracy and colleagues, with an educational berenice from [employer]. Thrive Questionnaire Date Thrive assessed: 09/08/24 I am a: Patient What is your living situation today?: I have a steady place to live Within the past 12 months, did the food you bought not last and you didn't have the money to get more?: Never true Within the past 12 months, did you worry whether your food would run out before you got money to buy more?: Never true Do you have trouble paying for medicines?: No Do you have trouble getting transportation to medical appointments?: No Do you have trouble paying your heating and electricity bill?: No Do you have trouble taking care of your child, family member or friend?: No Do you have trouble with day-to-day activities such as bathing, preparing meals, shopping, managing finances, etc.?: No Are you currently unemployed and looking for a job?: No Are you interested in more education?: No Please select the resources that you would like help with: None Currently or been in a relationship where the following occur: No concerns reported THRIVE Score: 0 AUDIT C Alcohol Use Questionnaire (AUDIT-C) 1. How often do you have a drink containing alcohol?: Monthly or less 2. How many drinks containing alcohol do you have on a typical day when you are drinking?: 1 or 2 3. How often do you have six or more drinks on one occasion?: Never Total Score: 1 RODRI-7 AMB Questionnaire RODRI-7 Date RODRI - 7 assessed: 09/08/24 Feeling nervous, anxious, or on edge: 1 = Several days Not being able to stop or control worryin = Not at all Worrying too much about different things: 0 = Not at all Trouble relaxin = Not at all Being so restless that it is hard to sit still: 0 = Not at all Becoming easily annoyed or irritable: 0 = Not at all Feeling afraid as if something awful might happen: 0 = Not at all Total RODRI-7 score (0-4 normal; 5-9 mild; 10-14 moderate; 15-21 severe): 1 Source: Developed by Drs. Dada Mann, Radha Restrepo, Tello Tracy and colleagues, with an educational berenice from [employer]. Physical exam (Primary Care) Vital Signs: Last Vital Signs Temp 97.3 F 09/08/24 15:01 Pulse 75 09/08/24 15:01 BP 130/60 09/08/24 15:21 Pulse Ox 97 09/08/24 15:01 Oxygen Delivery Method Room Air 09/08/24 15:01 Care Plan Goal for BP management: BP in range, continue current meds BMI result Body Mass Index 33.0 BMI Assessment/Plan discussion: High Tobacco/Smoking Status: Tobacco use Status Tobacco use date assessed 09/08/24 09/08/24 15:05 Patient Tobacco Use Status Never used Tobacco 09/08/24 15:05 e-Cigarette/Vaping Use Never Used 09/08/24 15:05 PHQ-9: PHQ-9 Score PHQ-9: Total score 0 09/08/24 15:21 Depression Screening Interpretation: Negative Thrive Assessment: Date of Thrive Assessment Date Thrive assessed 09/08/24 09/08/24 15:05 Currently or been in a relationship where the following occur: No concerns reported Advance Care Planning discussion: Exists, not on file Date of discussion: 09/08/24 Who was present: Patient Forms completed: Health Care Proxy and MOLST Actual minutes spent: 5 Coding Level of Care Code Est Pt Level 4 (36202) Complex EM visit Add On G2211 Diagnoses Essential hypertension I10 Additional Codes Vital Signs *Quality* - Advance Care Planning discussion: Exists, not on file ([id number]) Assessment & Plan Assessment & Plan (1) Essential hypertension: Code(s): I10 - Essential (primary) hypertension Category: Medical Plan: Blood pressure is in range. Continue current medications. Blood work reviewed with patient. Advanced directives reviewed with patient. Plan History of Present Illness - The patient is a 78-year-old female presenting to follow up on her blood pressure. - She reported a significant increase in blood pressure during a recent long-distance car trip, citing stress and difficult driving conditions as contributing factors. - The patient has a clinical history of Essential Hypertension, previously managed, with a notable episode of significant elevation during recent travel. - She also manages stress related to her 's diagnosis of Parkinson's Disease, which recently worsened, though improvements were noted following a medication adjustment by another healthcare provider. Social History - The patient lives with her who has Parkinson's Disease. - The couple has traveled by car from their home to [place] and back, indicating a level of activity and independence. - No specific employment or exercise habits discussed. - Her granddaughter actively participates in her social support system via daily phone calls. Review of Systems - Cardiovascular: Reports elevated blood pressure during recent travel. - Neurological: Reports stress related to the worsening of her 's Parkinson's Disease. Physical Exam General: Cooperative and healthy appearing Nutritional Appearance: Well nourished Orientation/consciousness: Patient oriented x3 Limitations: No limitations Head: Normal to inspection General: Appearance normal, both eyes and all related structures Neck: Normal visual inspection Chest: Normal palpation of entire chest wall Respiratory: N ormal respiratory effort Neurology: Patient oriented x3, Parkinson's noted, medication adjusted, improvement observed Results Plan 1. Essential Hypertension - Plan for blood pressure monitoring due to recent elevations. - Blood work is scheduled; encourage discussion with upcoming healthcare provider visit. 2. Parkinson's Disease Patient's - Continue monitoring 's condition and medication effects. - Patient involves herself in supportive care. Discussion Notes During the visit, I discussed with the patient the recent spike in her blood pressure during a stressful trip and the importance of monitoring her essential hypertension. We talked about scheduling necessary blood work which could provide her and her healthcare team with insights into her current condition. Further, I discussed potential stressors like her 's recent worsening of Parkinson?s Disease, which had improved with medication adjustments. I emphasized the importance of maintaining her routine care and regular follow-up appointments to ensure stable management of her hypertension. We also touched on the importance of addressing any lifestyle factors that could influence her condition. Patient Instructions - Monitor your blood pressure regularly and take note of any significant changes. - Proceed with scheduled blood work to assess your hypertension status. - Follow up with your healthcare provider at the next scheduled visit. - Maintain a lifestyle that minimizes stress where possible and assure supportive care for your ?s Parkinson?s condition. - Contact your healthcare provider if there are changes in your blood pressure or if you have any concerns about your health or your 's condition. Orders: Orders Complete Blood Count no Diff 09/08/24 I10 - Essential (primary) hypertension Lipid Panel 09/08/24 I10 - Essential (primary) hypertension Thyroid Stimulating Hormone 09/08/24 I10 - Essential (primary) hypertension UA and rflx microscopic 09/08/24 I10 - Essential (primary) hypertension Basic Metabolic Panel 09/08/24 I10 - Essential (primary) hypertension Liver Panel 09/08/24 I10 - Essential (primary) hypertension
[2024-09-08 15:01] VITALS: BP 150/68; PULSE 75; TEMP 36.3; O2SAT 97; BMI 33.0
[2024-09-08 15:21] VITALS: BP 130/60
--- OUTSIDE RECORDS SUMMARY | 2024-09-08 17:32 | XMS_ITS ---
[facility] Name [facility] Organization Unknown Problems Problem Status Onset Date Problem Type Date of Resoluti on Source Malignant neoplasm of colon, unspecified part of colon (HCC) active EncounterDiagnosisAct CCT Encounters Encounter Type Encounter Reason Primary Diagnosis Location Date [facility] 05/14/2023 [facility] 05/13/2023 Care Team Organization Name Specialty Phone Email Start Date End Da [facility] 05/13/2023 06/15/2024
== END 2024-09-08 15:29 | disposition home or self-care (01) ==
LOC: HO.HMCH 14:54
PROVIDERS: PCP Internal Medicine; Visit Provider Internal Medicine
DX: I10 Essential (primary) hypertension (principal); Z00.00 Encounter for general adult medical examination without abnormal findings

== ENCOUNTER → 2024-09-08 14:53 | Outpatient (BNVA) | payer MEDICARE, SELFPAY | PROVIDERS: PCP Internal Medicine; Visit Provider Internal Medicine | DX: I10 Essential (primary) hypertension (principal) | CPT/HCPCS: 96127; 99212 ==

== ENCOUNTER 2024-09-09 10:46 | Outpatient (REF) | payer MEDICARE, SELFPAY ==
--- OUTSIDE RECORDS SUMMARY | 2024-09-09 11:49 | XMS_ITS | Clinical Summary ---
Author Organization [facility] Address [address] [place] [address] Care Team Providers Care Welt Maker Name Role Phone Everardo Blair MD Primary Care Provider + Allergies No known active allergies Medications Medication Sig Dispensed Refills Start Date End Date Status pantoprazole (PROTONIX) 40 MG tablet Take 1 tablet (40 mg total) by mouth every morning on an empty stomach. 0 Active Active Problems Problem Noted Date Diagnosed Date Malignant neoplasm of ascending colon 06/05/2023 Social History Tobacco Use Types Packs/Day Years Used Date Smoking Tobacco: Never Smokeless Tobacco: Never Tobacco Cessation:Counseling Given: Not Answered Alcohol Use Standard Drinks/Week Comments Never 0 (1 standard drink = 0.6 oz pur e alcohol) Sex and Gender Information Value Date Recorded Sex Assigned at Female 05/21/2023 4:08 PM EST Gender Identity Not on file Sexual Orientation Not on file Job Start Date Occupation Industry Not on file Not on file Not on file Last Filed Vital Signs Vital Sign Reading Time Taken Comments Blood Pressure 131/44 06/05/2023 1:00 PM EST Pulse 73 06/05/2023 1:00 PM EST Temperature 36.7 ??C (98 ??F) 06/05/2023 1:00 PM EST Respiratory Rate - - Oxygen Saturation 99% 06/05/2023 1:00 PM EST Inhaled Oxygen Concentration - - Weight 78 kg (172 lb) 06/05/2023 1:00 PM EST Height - - Body Mass Index - - Plan of Treatment Health Maintenance Due Date Last Done Comments Hepatitis C Screening 1945 COVID-19 Vaccine (#1) 1949 Pneumococcal Vaccine (1 of 2 - PCV) 1950 Depression Screening 1956 Preventative Health Evaluation 1962 DTap / Tdap / Td (1 - Tdap) 10/15/1963 Shingrix-Zoster Vaccine (1 of 2) 10/15/1963 Fall Risk Assessment 2009 Osteoporosis Screening (DEXA Scan) 2009 RSV Adult > 60+ Yrs or Pregn ant (1 - 1-dose 75+ series) 10/15/2019 Influenza Vaccine (Season Ended) 2024 Hepatitis B Vaccines Aged Out No long er eligible based on patient's age to complete this topic RSV Ped < 20 months Aged Out No longe r eligible based on patient's age to complete this topic Care Teams Welt Maker Relationship Specialty Start Date End Date Everardo Blair MD [address] [place] [address] [address] [facility] [place] [address] PCP - General Internal Medicine 05/21/23
[2024-09-09 14:14] LABS: Hematocrit 38.1 % (37.0-47.0); Hemoglobin 12.9 g/dl (12.0-16.0); Mean Corpuscular HGB Conc 33.9 g/dl (31.0-35.0); Mean Corpuscular Hemoglobin 30.8 pg (27.0-33.0); Mean Corpuscular Volume 90.9 fL (80.0-98.0); Mean Platelet Volume 9.2 fL (9.4-12.3); Platelet Count 266 X10*3/uL (160-400); Red Blood Count 4.19 X10*6/uL (4.20-5.50); Red Cell Distribution Width 12.9 % (11.0-16.0); White Blood Count 6.9 X10*3/uL (4.8-10.8)
[2024-09-09 14:18] LABS: Appearance Urine Cloudy; Color Urine Yellow; Glucose Urine UA Negative (Negative); Leukocyte Esterase Urine Large (3+) (Negative); Nitrite Urine Negative (Negative); UMIC TRIGGER UA YES; Urine Blood Trace (Negative); Urine Ketones Negative (Negative); Urine Protein Trace mg/dL (Neg-Trace)
[2024-09-09 14:21] LABS: Bacteria Urine 4+ (None Seen); RBC Urine 0-2 /HPF (0-2); WBC Urine >50 /HPF (0-5)
[2024-09-09 14:32] LABS: Alanine Aminotransferase 30 U/L (0-31); Albumin Level 4.3 g/dL (3.5-5.0); Alkaline Phosphatase 95 U/L (39-117); Anion Gap 11 (12-20); Aspartate Amino Transferase 27 U/L (5-31); Bilirubin Direct 0.2 mg/dL (0.0-0.5); Bilirubin Total 0.6 mg/dL (0.0-1.0); Blood Urea Nitrogen 20 mg/dL (9-16); Calcium 9.2 mg/dL (8.4-10.2); Carbon Dioxide 24 mmol/L (22-29); Chloride 112 mmol/L (96-108); Cholesterol 228 mg/dL (<200); Estimated Glomerular Filt Rate 58; Glucose Random 109 mg/dL (60-115); HDL Cholesterol 49 mg/dL (>40); LDL Cholesterol Calculated 145 mg/dL (<100); Potassium 3.9 mmol/L (3.3-5.1); Sodium 143 mmol/L (135-145); Total Protein 6.7 g/dL (6.5-8.0); Triglycerides 173 mg/dL (<150)
[2024-09-09 14:48] LABS: Thyroid Stimulating Hormone 2.42 uIU/mL (0.32-4.0)
== END 2024-09-09 10:47 | disposition home or self-care (01) ==
LOC: HO.WFDLDS 10:46
PROVIDERS: Visit Provider Internal Medicine
DX: I10 Essential (primary) hypertension (principal)
CPT/HCPCS: 36415; 80048; 80061; 80076; 81001; 84443; 85027

== ENCOUNTER 2024-12-22 15:53 | Outpatient (AMB) | payer MEDICARE, SELFPAY ==
--- NOTE | 2024-12-22 16:06 | A.OFFPC_ITS ---
Vital Signs 12/22/24 16:07 Height 5 ft 4 in Weight 195 lb 8 oz BMI 33.6 BP 134/70 Blood Pressure Location Lt brachial Position Sitting Pulse 74 Pulse Source Pulse Oximeter Temp 97.3 F Temp Source Temporal Artery Scan Pulse Oximetry (%) 97 Oxygen Delivery Method Room Air Intake Visit Reasons: Congestion,99.1 temp Intake Note: Patient complains of Congestion, temp from 100.5 to 99.1, post nasal drip, headaches, ear pain, sore throat. No testing for covid at home. Instrumentation And Control Technician Required: No Estate Attorney: Not Required per policy Accompanied by: Self / Same As Patient Allergies No Known Allergies Allergy (Verified 12/22/24 16:07) Medication List - Last Reconciled 12/22/24 by Sergio Mcpherson MD amlodipine 5 mg PO DAILY atorvastatin (Lipitor) 10 mg PO BEDTIME colesevelam 1,250 mg (2 x 625 mg) PO BID 90 days hydrocortisone 2.5% (Anusol-HC) 1 appl DE BEDTIME pantoprazole 40 mg PO BID Tobacco use date assessed: 12/22/24 Fall risk assessment: No Falls in past year Last assessed Fall Risk: 12/22/24 Dental Screening Dental Screen Date: 09/08/24 HPI HPI Comments History of Present Illness Details The patient is an 79-year-old female presenting with congestion and fever. The symptoms began on Thursday, with the patient experiencing a temperature of 100.5?F. She reports feeling better after taking Tylenol, but the symptoms persist, with congestion worsening in the morning and improving throughout the day. The patient has a history of colon cancer and has undergone surgery for the condition. She is currently on medications including amlodipine, atorvastatin, and pantoprazole for acid reflux. She has been advised to consider dietary changes to manage her acid reflux, focusing on reducing sugar and dairy intake. [facility] Medical History (Updated 12/22/24 @ 16:41 by Sergio Mcpherson MD) Essential hypertension H pylori ulcer GERD (gastroesophageal reflux disease) History of recent blood transfusion Anemia Mass of colon Surgical History Status post small bowel resection (06/12/23) History of exploratory laparotomy (12/11/22) History of surgery Hx of tonsillectomy History of esophagogastroduodenoscopy (EGD) H/O colonoscopy (~05/12/23) Family History Other Mental health disorder Substance use disorder Social History Household Members: Spouse Housing: Condominium Are you a primary direct care specialist to a significant other at home: Yes (-has Parkinson's-helps him with his care) Do you presently have visiting nurse or other home services: No Alcohol intake: current Alcohol intake frequency: does not drink Alcohol type: wine Patient Tobacco Use Status: Never used Tobacco e-Cigarette/Vaping Use: Never Used Second Hand Smoke Exposure: No Advance Directives Date on File: 12/23/22 service: No Current occupational status: retired Cognitive needs: No Hearing needs: No Vision needs: Yes (glasses) Questionnaire Thrive Questionnaire Date Thrive assessed: 09/08/24 I am a: Patient What is your living situation today?: I have a steady place to live Within the past 12 months, did the food you bought not last and you didn't have the money to get more?: Never true Within the past 12 months, did you worry whether your food would run out before you got money to buy more?: Never true Do you have trouble paying for medicines?: No Do you have trouble getting transportation to medical appointments?: No Do you have trouble paying your heating and electricity bill?: No Do you have trouble taking care of your child, family member or friend?: No Do you have trouble with day-to-day activities such as bathing, preparing meals, shopping, managing finances, etc.?: No Are you currently unemployed and looking for a job?: No Are you interested in more education?: No Please select the resources that you would like help with: None Currently or been in a relationship where the following occur: No concerns reported THRIVE Score: 0 RODRI-7 AMB Questionnaire RODRI-7 Date RODRI - 7 assessed: 09/08/24 Source: Developed by Drs. Dada Mann, Radha Restrepo, Tello Tracy and colleagues, with an educational berenice from [employer]. Review of Systems Const Details: Positives besides what was mentioned in HPI are in BOLD Constitutional: No Weight Change, No Fever, No Chills, No Night Sweats, No Fatigue, No Malaise ENT/Mouth: No Hearing Changes, No Ear Pain, No Nasal Congestion, No Sinus Pain, No Hoarseness, No sore throat, No Rhinorrhea, No Swallowing Difficulty Eyes: No Eye Pain, No Swelling, No Redness, No Foreign Body, No Discharge, No Vision Changes Cardiovascular: No Chest Pain, No SOB, No PND, No Dyspnea on Exertion, No Orthopnea, No Claudication, No Edema, No Palpitations Respiratory: No Cough, No Sputum, No Wheezing, No Smoke Exposure, No Dyspnea Gastrointestinal: No Nausea, No Vomiting, No Diarrhea, No Constipation, No Pain, No Heartburn, No Anorexia, No Dysphagia, No Hematochezia, No Melena, No Flatulence, No Jaundice Genitourinary: No Dysmenorrhea, No DUB, No Dyspareunia, No Dysuria, No Urinary Frequency, No Hematuria, No Urinary Incontinence, No Urgency, No Flank Pain, No Urinary Flow Changes, No Hesitancy Musculoskeletal: No Arthralgias, No Myalgias, No Joint Swelling, No Joint Stiffness, No Back Pain, No Neck Pain, No Injury History Skin: No Skin Lesions, No Pruritis, No Hair Changes, No Breast/Skin Changes, No Nipple Discharge Neuro: No Weakness, No Numbness, No Paresthesias, No Loss of Consciousness, No Syncope, No Dizziness, No Headache, No Coordination Changes, No Recent Falls Psych: No Anxiety/Panic, No Depression, No Insomnia, No Personality Changes, No Delusions, No Rumination, No SI/HI/AH/VH, No Social Issues, No Memory Changes, No Violence/Abuse Hx., No Eating Concerns Heme/Lymph: No Bruising, No Bleeding, No Transfusions History, No Lymphadenopathy Endocrine: No Polyuria, No Polydipsia, No Temperature Intolerance Physical exam (Primary Care) Vital Signs: Last Vital Signs Temp 97.3 F 12/22/24 16:07 Pulse 74 12/22/24 16:07 BP 134/70 12/22/24 16:07 Pulse Ox 97 12/22/24 16:07 Oxygen Delivery Method Room Air 12/22/24 16:07 BMI result Body Mass Index 33.6 Tobacco/Smoking Status: Tobacco use Status Tobacco use date assessed 12/22/24 12/22/24 16:14 Patient Tobacco Use Status Never used Tobacco 12/22/24 16:14 e-Cigarette/Vaping Use Never Used 12/22/24 16:14 Thrive Assessment: Date of Thrive Assessment Date Thrive assessed 09/08/24 12/22/24 16:14 Currently or been in a relationship where the following occur: No concerns reported Results AMB Rapid Strep AMB Rapid Strep Negative Last Edit by PAO Mayer on 12/22/24 16:2 7 Results Reviewed Results Reviewed: Laboratory Last Values Strep Scn Rapid Clinic Negative 12/22/24 16:27 Coding Level of Care Code Est Pt Level 4 (45008) Diagnoses Flu-like symptoms R68.89 GERD (gastroesophageal reflux disease) K21.9 Time Spent (min) 20 Assessment & Plan Assessment & Plan (1) Flu-like symptoms: Code(s): R68.89 - Other general symptoms and signs Category: Medical Plan: Symptomatic treatment with zyrtec and Nasonex as the patient reported post nasal drip and face congestion. (2) GERD (gastroesophageal reflux disease): Comment: pantoprazole prescribed while in-patient Code(s): K21.9 - Gastro-esophageal reflux disease without esophagitis Category: Medical Plan: Advised on lifestyle modifications including reducing dairy, sugar, red meat and gluten. Orders: Orders AMB Rapid Strep Screen Today Z13.9 - Encounter for screening, unspecified Medications: New cetirizine (Zyrtec) 10 mg PO DAILY PRN 30 caps 0RF allergy symptoms mometasone 50 mcg/actuation (Nasonex 24hr Allergy) administer into each nostril 2 sprays intranasal BID PRN 17 grams 0RF nasal congestion Discontinued loperamide (Imodium A-D) administer after each loose stool until symptoms controlled; do not exceed 8 mg per 24 hrs Discontinued Reason: Patient no longer taking 2 mg PO Q4H PRN 20 tabs 0RF loose stool
[2024-12-22 16:07] VITALS: BP 134/70; PULSE 74; TEMP 36.3; O2SAT 97; BMI 33.6
--- OUTSIDE RECORDS SUMMARY | 2024-12-22 19:48 | XMS_ITS | Clinical Summary ---
Author Organization [facility] Address [address] [place] [address] Care Team Providers Care Run Lead Name Role Phone Unavailable Primary Care Provider Unavailabl e Social History Tobacco Use Types Packs/Day Years Used Date Smoking Tobacco: Never Assessed Comments Unknown Sex and Gender Information Value Date Recorded Sex Assigned at Not on file Legal Sex Female 11:10 AM EST Gender Identity Not on file Sexual Orientation Not on file Plan of Treatment Health Maintenance Due Date Last Done Comments Advance Care Planning 1945 DTaP/Tdap/Td Vaccines (1 - Tdap) 10/15/1963 Pneumococcal Vaccines 50+ (1 of 1 - PCV) 1994 Zoster (Shingles) Vaccine (1 of 2) 1994 DXA Bone Density (Females,Ag es 65 and older) 2009 RSV Vaccine 60 years and old er and Patients (1 - 1-dose 75+ series) 10/15/2019 Influenza Vaccine 10/28/2024 COVID-19 Vaccine ( - 2023-2 5 season) 2024 Hepatitis B Vaccines Aged Out No long er eligible based on patient's age to complete this topic Insurance BLUE CROSS [employer] MEDICARE OUT OF NETWORK
--- OUTSIDE RECORDS SUMMARY | 2024-12-22 19:48 | XMS_ITS | Clinical Summary ---
Author Organization [facility] Address [address] [place] [address] Care Team Providers Care Research Environmental Scientist Name Role Phone Everardo Blair MD Primary [...] 73 06/05/2023 1:00 PM EST Temperature 36.7 C (98 F) 06/05/2023 1:00 PM EST Respiratory Rate - - Oxygen Saturation 99% 06/05/2023 1:00 PM EST Inhaled Oxygen Concentration - - Weight 78 kg (172 lb) 06/05/2023 1:00 PM EST Height - - Body Mass Index - - Plan of Treatment Health Maintenance Due Date Last Done Comments COVID-19 Vaccine (#1) 1949 Pneumococcal Vaccine (1 of 2 - PCV) 1950 Depression Screening 1956 Preventative Health Evaluation 1962 DTap / Tdap / Td (1 - Tdap) 10/15/1963 Shingrix-Zoster Vaccine (1 of 2) 10/15/1963 Fall Risk Assessment 2009 Osteoporosis Screening (DEXA Scan) 2009 RSV Adult > 60+ Yrs or Pregn ant (1 - 1-dose 75+ series) 10/15/2019 Influenza Vaccine (#1) 2024 Hepatitis B Vaccines Aged Out No long er eligible based on patient's age to complete this topic RSV Ped < 20 months Aged Out No longe r eligible based on patient's age to complete this topic Care Teams Research Environmental Scientist Relationship Specialty Start Date End Date Everardo Blair MD [address] [place] [address] Dr [address] [place] [id number] PCP - General Internal Medicine 05/21/23
== END 2024-12-22 16:40 | disposition home or self-care (01) ==
LOC: HO.HMCH 15:53
PROVIDERS: PCP Internal Medicine; Visit Provider Internal Medicine
DX: R68.89 Other general symptoms and signs (principal); K21.9 Gastro-esophageal reflux disease without esophagitis; Z13.9 Encounter for screening, unspecified

== ENCOUNTER → 2024-12-22 15:53 | Outpatient (BNVA) | payer MEDICARE, SELFPAY | PROVIDERS: PCP Internal Medicine; Visit Provider Internal Medicine | DX: K21.9 Gastro-esophageal reflux disease without esophagitis (principal); R68.89 Other general symptoms and signs | CPT/HCPCS: 87880; 99212 ==